=== PATIENT | male | born 1950 | race Caucasian/White ===

== ENCOUNTER 2023-11-16 13:50 | Outpatient (OUT) | payer MEDICARE, SELFPAY ==
[2023-11-16 14:26] LABS: Basophils Absolute Auto 0.2 10^3/uL (0.0-0.1); Basophils Percent Auto 2.2 % (0.2-2.0); Eosinophils Absolute Auto 0.3 10^3/uL (0.0-0.7); Eosinophils Percent Auto 3.6 % (0.9-7.0); Hematocrit 44.6 % (42.0-54.0); Hemoglobin 14.6 g/dL (14.0-18.0); Immature Granulocytes Abs Auto 0.01 10^3/uL (0.00-0.03); Immature Granulocytes Pct Auto 0.1 % (0.0-0.5); Lymphocytes Absolute Auto 1.6 10^3/uL (1.2-3.8); Lymphocytes Percent Auto 22.6 % (20.5-60.0); Mean Corpuscular HGB Conc 32.7 g/dL (29.9-35.2); Mean Corpuscular Hemoglobin 31.6 pg (25.9-34.0); Mean Corpuscular Volume 96.5 fL (80.0-94.0); Mean Platelet Volume 11.3 fL (9.5-13.5); Monocytes Absolute Auto 0.7 10^3/uL (0.3-0.8); Monocytes Percent Auto 9.5 % (1.7-12.0); Neutrophils Absolute Auto 4.5 10^3/uL (1.4-6.5); Platelet Count 213 10^3/uL (150-450); Red Blood Count 4.62 10^6/uL (4.70-6.10); Red Cell Distribution Width 13.7 % (11.0-15.0); White Blood Count 7.3 10^3/uL (4.0-11.0)
[2023-11-16 14:28] LABS: Estimated Average Glucose 114 mg/dL; Glycohemoglobin A1C 5.6 % (4.5-6.2)
[2023-11-16 15:11] LABS: Alanine Aminotransferase 56 U/L (16-63); Albumin Level 3.9 g/dL (3.4-5.0); Alkaline Phosphatase 72 U/L (46-116); Anion Gap 11.3; Aspartate Amino Transferase 36 U/L (15-37); BUN Creatinine Ratio 13.6; Bilirubin Total 1.1 mg/dL (0.2-1.0); Calcium 9.6 mg/dL (8.5-10.1); Carbon Dioxide 30.6 mmol/L (21.0-32.0); Chloride 104 mmol/L (98-107); Chol HDL Ratio 2.5; Cholesterol 117 mg/dL (<=200); Estimated GFR (African America >60 (>=60); Estimated GFR (Non-African Ame 53 (>=60); Globulin 3.9 g/dL; Glucose 83 mg/dL (74-106); HDL Cholesterol 47 mg/dL (40-60); LDL Cholesterol Calculated 58.6 mg/dL; Potassium 4.9 mmol/L (3.5-5.1); Sodium 141 mmol/L (136-145); Total Protein 7.8 g/dL (6.4-8.2); Triglycerides 57 mg/dL (<=150); VLDL CHOLESTEROL 11.4 mg/dL
[2023-11-16 15:24] LABS: Prostate Specific Antigen Scrn 0.73 ng/mL (<=4.00)
== END 2023-11-16 13:51 | disposition home or self-care (01) ==
LOC: LAB 13:53
PROVIDERS: PCP Family Medicine; Visit Provider Family Medicine
DX: E78.5 Hyperlipidemia, unspecified (principal); I25.10 Atherosclerotic heart disease of native coronary artery without angina pectoris; R73.09 Other abnormal glucose; Z12.5 Encounter for screening for malignant neoplasm of prostate
CPT/HCPCS: 36415; 80053; 80061; 83036; 85025; G0103

== ENCOUNTER 2024-01-22 12:11 | Outpatient (OUT) | payer MEDICARE, SELFPAY ==
--- OUTSIDE RECORDS SUMMARY | 2024-01-22 12:15 | XMS_ITS | CCD ---
Author Name Unknown Address [id number] [place] [address] Organization [facility] Care Team Providers [place] [employer] Name Role Phone Destiny Gardner Unavailable Unavailable Unavailable MD Destiny Gardner Primary Care Provider MD Cory Johnson Attending Provider MD Destiny Gardner Primary Care Provider MD Cory Johnson Attending Provider DR DESTINY GARDNER Consulting Unavailable KENDRA, DR DESTINY Garcia Attending Unavailable DR DESTINY GARDNER Admitting Unavailable KENDRA, DR DESTINY Garcia Primary Care Unavailable MD Destiny Gardner Primary Care Provider MD Cory Johnson Attending Provider DO Abhijit Loepz Emergency Provider [phone] DO Eber Kuhn Admit Provider DO Eber Kuhn Attending Provider DO Jhony Almonte Attending Provider SIS Luu Other Provider Unavailable DO Jimmy Esparza Other Provider MD Lashay Chen Other Provider [phone] MD Cory Johnson Other Provider [phone] MD Jenna Boone Other Provider [phone] MD Anshu Lee Other Provider JENNI Holliday Other Provider MD Luz Marina Pfeiffer Other Provider MD Vladimir Steen Other Provider MD Erin Schneider Other Provider Juana [facility] Yamila Joy Other Provider [phone] MD Joleen Syed Other Provider [phone] MD Destiny Gardner Primary Care Provider MD Luz Marina Pfeiffer Other Provider MD Cory Johnson Attending Provider Unavailable Unavailable MD Destiny Gardner Primary Care Provider MD Cory Johnson Attending Provider MD Destiny Gardner Primary Care Provider MD Cory Johnson Attending Provider Kendra, Dr. Destiny Lane Primary Care Unav ailable Kendra, Dr. Destiny Lane Primary Care Unav ailbello Gardner, Dr. Destiny Lane Primary Care Unav ailable Kendra, Dr. Destiny Lane Primary Care Unav ailable Kendra, Dr. Destiny Lane Primary Care Unav ailable Kendra, Dr. Destiny Lane Primary Care Unav ailable Calebuinn II, Dr. Cory Lacey Attending Unavailable McGuinn II, Dr. Cory Lacey Referring Unavailable McGuinn II, Dr. Cory Lacey Attending Unavailable McGuinn II, Dr. Cory Lacey Referring Unavailable Kendra, Dr. Destiny Lane Primary Care UnaDestiny Jon MD Primary Care Provider CORY JOHNSON Attending Unavailable KENDRA, DESTINY LANE Primary Care Unavaila ble Destiny Gardner Unavailable MD Destiny Gardner Primary Care Provider MD Cory Johnson Attending Provider Cory Johnson Attending Unavail able McGuinn, Cory Abhijit Admitting Unavail able Destiny Gardner Primary Care Unavailable Cory Johnson Attending Unavail able Cory Johnson Admitting Unavail able Destiny Gardner Primary Care Unavailable Cory Johnson Attending Unavail able Cory Johnson Admitting Unavail able Destiny Gardner Primary Care Unavailable Cory Johnson Attending Unavail able Destiny Gardner Primary Care Unavailable Cory Johnson Admitting Unavail able SUHAIL NARANJO Attending Unavailable SUHAIL NARANJO Referring Unavailable SUHAIL NARANJO Referring Unavailable Medications Current Medications Medication Drug Class(es) Dates Sig (Normalized) Sig (Original) ascorbic acid 500 mg oral capsule (15 sources) Vitamin C Vitamin C 500 MG Orally Active Aspir-81 81 MG (2 sources) take 1 tablet by mouth once daily Aspir-81 81 MG 1 tablet Orally Once a day Active aspirin 81 mg delayed release oral tablet (13 sources) Platelet Aggregation Inhibitor, Nonsteroidal Anti-inflammatory Drug take 1 tablet by mouth once daily aspirin 81 mg EC tablet Take 1 tablet (81 mg) by mouth once daily. 0 Active aspirin 500 mg / caffeine 32.5 mg oral tablet (5 sources) Platelet Aggregation Inhibitor, Nonsteroidal Anti-inflammatory Drug, Central Nervous System Stimulant, Methylxanthine Start: 11-17-2022 take 1 tablet by mouth every six hours Aspirin-Caffeine (Tiffany [employer]) 500-32.5 mg Tablet Active 500 TAB PO Q6H November 17, 2022 12:00am cholecalciferol 0.025 mg oral tablet (13 sources) Vitamin D take 1 tablet by mouth once daily cholecalciferol (Vitamin D-3) 25 MCG (1000 UT) tablet Take 1 tablet (25 mcg) by mouth once daily. 0 Active citalopram 20 mg oral tablet (20 sources) Serotonin Reuptake Inhibitor Start: 11-17-2022 take 20 mg by mouth once daily Citalopram Active 20 MG PO Daily November 17, 2022 12:00am digoxin 0.125 mg oral tablet (18 sources) Cardiac Glycoside Start: 11-17-2022 take 0.125 mg by mouth once daily Digoxin Active 0.125 MG PO Daily November 17, 2022 12:00am Start: 07-26-2022 End: 10-05-2024 take 1 tablet by mouth once daily digoxin (Lanoxin) 125 MCG tablet Indications: Essential hypertension Take 1 tablet (125 mcg) by mouth once daily. 90 tablet 3 10/06/2023 10/05/2024 Active docosahexaenoic acid 120 mg / eicosapentaenoic acid 180 mg oral capsule (13 sources) take [address] [facility] once daily fish oil concentrate ([place]-3) 120-180 mg capsule Take 1 capsule (1 g) by mouth once daily. 0 Active take 1 capsule by mouth once jorgito ly Fish Oil 1000 MG Oral Capsule TAKE 1 CAPSULE Daily Quantity: 0 Refills: 0 Ordered: 05-Nov-2021 DO Active donepezil hydrochloride 10 mg oral tablet (15 sources) take 1 tablet by mouth once daily Donepezil HCl 10 MG TAKE 1 TABLET BY MOUTH DAILY for 90 Active finasteride 5 mg oral tablet (20 sources) 5-alpha Reductase Inhibitor Start: 2 take 2.5 mg by mouth three times weekly Finasteride Active 2.5 MG PO 3 Times a week November 17, 2022 12:00am take 1 tablet by [facility] every twenty-four hours Finasteride 5 MG 1 tablet Orally Once a day Active take 0.[address] [facility] three times weekly finasteride (Proscar) 5 mg tablet Take 0.5 tablets (2.5 mg) by mouth 3 times a week. 0 Active Fish Oils (2 sources) take 1 capsule by mouth once daily Fish Oil 1000 MG 1 capsule Orally Once a day Active Glucosamine Chondr Complex 500-400 MG (2 sources) take 1 capsule by mouth once daily Glucosamine Chondr Complex 500-400 MG 1 capsule with a meal Orally Once a day Active glucosamine/chondr zambrano A sod (OSTEO BI-FLEX ORAL) (1 source) take 1 capsule by mouth once daily glucosamine/chondr zambrano A sod (OSTEO BI-FLEX ORAL) Take 1 capsule by mouth once daily. 0 Active hydroCHLOROthiazide 25 mg oral tablet (19 sources) Thiazide Diuretic Start: 2021 End: 2022 take 25 mg by mouth once daily Hydrochlorothiazide Active 25 MG PO Daily November 17, 2022 12:00am ibuprofen 600 mg oral tablet (5 sources) Nonsteroidal Anti-inflammatory Drug Start: 2021 take 600 mg by mouth four times daily Ibuprofen Active 600 MG PO Four times daily 20 5 November 17, 2022 12:00am further refills per pcp lisinopril 10 mg oral tablet (20 sources) Angiotensin Converting Enzyme Inhibitor Start: 2020 End: 2022 take 10 mg by mouth once daily Lisinopril Active 10 MG PO Daily November 17, 2022 12:00am Magnesium (2 sources) take 1 capsule by mouth once daily Magnesium 300 MG 1 capsule with a meal Orally Once a day Active magnesium oxide 400 mg oral tablet (13 sources) take 1 tablet by mouth once daily magnesium oxide (Mag-Ox) 400 mg (241.3 mg magnesium) tablet Take 1 tablet (400 mg) by mouth once daily. 0 Active metoprolol tartrate 50 mg oral tablet (20 sources) beta-Adrenergic Dusty Start: 2020 End: 2023 take 50 mg by mouth once daily Metoprolol Tartrate Active 50 MG PO Daily November 17, 2022 12:00am take 1 tablet by jossy th every twelve hours Metoprolol Tartrate 50 MG 1 tablet with food Orally Twice a day Active multivitamin with minerals (hmodmootwzqc-xhzw-edpef acid) tablet (1 source) take 1 tablet by mouth once daily multivitamin with minerals (timtgqzycnpm-lyrw-goepc acid) tablet Take 1 tablet by mouth once daily. 0 Active nitroglycerin 0.4 mg sublingual powder (15 sources) Nitrate Vasodilator Star t: 06-21 Nitroglycerin 0.4MG Nitroglycerin( 0.4MG Sublingual ) Active -Hx Entry Sublingual for 0 Jun, Active nitroglycerin (N itrostat) 0.[address] 1 tablet (0.4 mg) under the tongue every 5 minutes if needed for chest pain. 0 Active Ozempic (2 sources) Ozempic Active ozempic (0.25 or 0.5 mg/dose) 2 mg/3ml solution pen-injector (2 sources) Start: 11-16-2023 inject 0.5 mg by subcutaneous injection every week Ozempic (0.25 or 0.5 MG/DOSE) 2 MG/3ML 0.5mg Subcutaneous weekly for 30 days Oct, Active Psyllium (6 sources) Start: 11-17-2022 Psyllium Active 1 PACKET PO Daily November 17, 2022 1:00am Start: 11-17-2022 Psyllium Activ e 1 PACKET PO Daily November 17, 2022 12:00am take 1 dose by mouth once daily psyllium (Metamucil) 3.4 gram packet Take 1 packet by mouth once daily. 0 Active simvastatin 40 mg oral tablet (20 sources) HMG-CoA Reductase Inhibitor Start: 11-16-2021 End: 10-05-2024 take 40 mg by mouth once daily Simvastatin Active 40 MG PO Daily November 17, 2022 12:00am vitamin b12 0.1 mg oral lozenge (15 sources) Vitamin B12 Vitamin B 12 100 MCG Orally Active take 1 tablet by mouth once maddie y cyanocobalamin, vitamin B-12, (Vitamin B-12) 1,000 mcg tablet extended release Take 1 tablet (1,000 mcg) by mouth once daily. 0 Active Vitamin D-3 1000 UNIT (2 sources) take 1 capsule by mo ut once daily Vitamin D-3 1000 UNIT 1 capsule Orally Once a day Active Completed/Discontinued Medications Medication Drug Class(es) Dates Sig (Normalized) Sig (Original) amLODIPine 5 mg oral tablet (2 sources) Dihydropyridine Calcium Channel Dusty take 1 tablet by mouth every twenty-four hours amLODIPine Besylate 5 MG 1 tablet Orally Once a day Not-Taking/PRN clopidogrel 75 mg oral tablet (2 sources) P2Y12 Platelet Inhibitor take 1 tablet by mouth every twenty-four hours Clopidogrel Bisulfate 75 MG 1 tablet Orally Once a day Not-Taking/PRN docusate sodium 100 mg oral capsule (12 sources) take 1 capsule by mouth twice daily as needed Stool Softener 100 MG Oral Capsule TAKE 1 CAPSULE TWICE DAILY NEEDED. Quantity: 0 Refills: 0 Ordered: 05-Nov-2021 DO Active gabapentin 100 mg oral capsule (2 sources) Anti-epileptic Agent Gabapentin 100 MG Orally Not-Taking/PRN Iron (2 sources) iron 1 tab Oral Not-Taking/PRN losartan potassium 100 mg oral tablet (2 sources) Angiotensin 2 Receptor Dusty take 1 tablet by mouth every twenty-four hours Losartan Potassium 100 MG 1 tablet Orally Once a day Not-Taking/PRN Multi Vitamin Oral Tablet (12 sources) take 1 tablet by mouth once daily Multi Vitamin Oral Tablet TAKE 1 TABLET DAILY. Quantity: 0 Refills: 0 Ordered: 05-Nov-2021 DO Active Problems Active Problems Problem Classification Problem Date Documented Da te Episodic/Chronic Cardiac arrest and ventricular fibrillation (17 sources) Ventricular fibrillation; Translations: [Ventricular fibrillation] Onset: 3 10-06-2023 Chronic Chronic obstructive pulmonary disease and bronchiectasis (2 sources) Bronchitis; Translations: [Bronchitis, not specified as acute or chronic] Episodic Conduction disorders (20 sources) Automatic implantable cardiac defibrillator in situ; Translations: [Automatic implantable cardiac defibrillator in situ] Onset: 3 11-17-2022 Chronic Coronary atherosclerosis and other heart disease (20 sources) Coronary arteriosclerosis; Translations: [Coronary atherosclerosis of unspecified type of vessel, [place] or graft] Onset: 3 10-06-2023 Chronic Deficiency and other anemia (2 sources) Iron deficiency anemia; Translations: [Iron deficiency anemia, unspecified] Episodic Diabetes mellitus without complication (1 source) Other abnormal glucose Episodic Disorders of lipid metabolism (20 sources) Hyperlipidemia; Translations: [Other and unspecified hyperlipidemia] Onset: 3 Chronic Esophageal disorders (2 sources) Gastroesophageal reflux disease; Translations: [Gastro-esophageal reflux disease without esophagitis] Chronic Essential hypertension (20 sources) Essential hypertension; Translations: [Unspecified essential hypertension] Onset: 2 11-17-2022 Chronic Gastrointestinal hemorrhage (2 sources) Hematochezia; Translations: [Melena] Episodic Immunizations and screening for infectious disease (2 sources) Vaccination given; Translations: [Encounter for immunization] Episodic Nonspecific chest pain (13 sources) Chest pain; Translations: [Chest pain, unspecified] 11-17-2022 Episodic Nutritional deficiencies (3 sources) Vitamin D deficiency, unspecified; Translations: [Vitamin D deficiency] Onset: 2 Chronic Occlusion or stenosis of precerebral arteries (14 sources) Carotid artery stenosis; Translations: [Occlusion and stenosis of carotid artery without mention of cerebral infarction] Onset: 3 09-18-2023 Chronic Other circulatory disease (15 sources) Patient post angioplasty; Translations: [Other postprocedural status] Onset: 3 10-06-2023 Episodic Other circulatory disease (4 sources) History of cardiac arrest; Translations: [Personal history of sudden cardiac arrest] 11-17-2022 Episodic Other circulatory disease (2 sources) Peripheral vascular angioplasty status; Translations: [Peripheral vascular angioplasty status] Onset: 3 Episodic Other circulatory disease (2 sources) Orthostatic hypotension; Translations: [Orthostatic hypotension] Episodic Other injuries and conditions due to external causes (2 sources) History of fall; Translations: [History of falling] Episodic Other lower respiratory disease (14 sources) Dyspnea; Translations: [Other respiratory abnormalities] Onset: 3 09-18-2023 Episodic Other male genital disorders (2 sources) Impotence of organic origin; Translations: [Impotence of organic origin] Onset: 6 Chronic Other nutritional; endocrine; and metabolic disorders (3 sources) Obese class I; Translations: [Obesity, unspecified] Chronic Other nutritional; endocrine; and metabolic disorders (3 sources) Body mass index 30+ - obesity; Translations: [Body Mass Index 32.0-32.9, adult] Chronic Other nutritional; endocrine; and metabolic disorders (12 sources) Obesity; Translations: [Obesity, unspecified] Chronic Other nutritional; endocrine; and metabolic disorders (2 sources) Obesity caused by energy imbalance; Translations: [Other obesity due to excess calories] Chronic Other nutritional; endocrine; and metabolic disorders (1 source) Other obesity due to excess calories Chronic Other nutritional; endocrine; and metabolic disorders (1 source) Body mass index (BMI) 33.0-33.9, adult Chronic Other screening for suspected conditions (not mental disorders or infectious disease) (2 sources) Encounter for screening for malignant neoplasm of prostate; Translations: [ENC SCREEN MALIG NEOPLASM PROSTATE] Onset: 2 Episodic Other skin disorders (2 sources) Alopecia; Translations: [Nonscarring hair loss, unspecified] Episodic Other upper respiratory infections (2 sources) Chronic sinusitis; Translations: [Chronic sinusitis, unspecified] Chronic Otitis media and related conditions (2 sources) Dysfunction of bilateral eustachian tubes; Translations: [Other specified disorders of Eustachian tube, bilateral] Episodic Screening and history of mental health and substance abuse codes (12 sources) Ex-smoker; Translations: [Personal history of tobacco use] Episodic Spondylosis; intervertebral disc disorders; other back problems (2 sources) Degeneration of intervertebral disc; Translations: [Degeneration of intervertebral disc, site unspecified] Onset: 3 Chronic Unclassified (1 source) Encounter for adjustment and management of automatic implantable cardiac defibrillator; Translations: [Encounter for adjustment and management of automatic implantable cardiac defibrillator] Onset: 3 Past or Other Problems Problem Classification Problem Date Documented Date Episodic/Chronic Abdominal pain (4 sources) Right upper quadrant pain; Translations: [Right upper quadrant pain] Onset: 07-18-2016 Episodic Biliary tract disease (2 sources) Cholelithiasis without obstruction; Translations: [Calculus of gallbladder without cholecystitis without obstruction] Onset: 02-24-2016 Episodic Conditions associated with dizziness or vertigo (4 sources) Benign paroxysmal positional vertigo; Translations: [Benign paroxysmal vertigo, unspecified ear] Onset: 08-10-2015 Episodic Other skin disorders (2 sources) Generalized hyperhidrosis; Translations: [Generalized hyperhidrosis] Onset: 2015 Episodic Other upper respiratory infections (2 sources) Acute sinusitis; Translations: [Acute sinusitis, unspecified] Onset: 11-28-2013 Episodic Residual codes; unclassified (2 sources) Edema; Translations: [Edema] Onset: 09-02-2014 Episodic Residual codes; unclassified (2 sources) Requires influenza virus vaccination; Translations: [Need for prophylactic vaccination and inoculation, Influenza] Onset: 09-26-2017 Episodic Unclassified (1 source) Onset: 10-06-2023 10-06-2023 Results Test Name Value Interpretation Reference Range Facility Office Visit (Cardiology)on 01-13-2023 Follow-up visit Diagnoses/Problems Assessed Ventricular fibrillation (427.41) (I49.01) Carotid artery stenosis (433.10) (I65.29) Arteriosclerosis of coronary artery (414.00) (I25.10) ICD (implantable cardioverter-defibrillator ), single, in situ (V45.02) (Z95.810) Status post angioplasty (V45.89) (Z98.62) Essential hypertension (401.9) (I10) Hyperlipidemia (272.4) (E78.5) Class 1 obesity with body mass index (BMI) of 33.0 to 33.9 in adult (278.00,V85.33) (E66.9,Z68.33) Orders Essential hypertension Renew: hydroCHLOROthiazide 25 MG Oral Tablet; take 1 tablet by mouth once daily Ventricular fibrillation Renew: Digoxin 125 MCG Oral Tablet; TAKE 1 TABLET Daily Patient Instructions Please bring all medicines, vitamins, and herbal supplements with you when you come to the office. Prescriptions will not be filled unless you are compliant with your follow up appointments or have a follow up appointment scheduled as per instruction of your physician. Refills should be requested at the time of your visit Fall prevention education given. Follow up in 9 months Pacemaker/Defibrillator follow-up per routine The provider reviewed the following test(s) and result(s) with the patient: echocardiogram and laboratory tests Chief Complaint ECHO RESULTS. History of Present Illness Patient returns in follow-up of previous complaints of shortness of breath. At the last encounter plan was an outpatient echocardiogram but about a week after the office visit he went to the hospital and was admitted. His evaluation demonstrated no EKG changes, normal troponins, normal B natruretic peptide and a normal echocardiogram. This was reviewed with him and I told him that I seriously doubt any active heart disease. He had no manifestations of ischemia nor heart failure and I believe his previous complaints of shortness of breath are probably on the basis of COPD and/or age-related deconditioning. This was discussed and explained in great detail and he is excepting of the conclusions and agrees. The present time it appears no adjustments in therapy are necessary. Once again we reviewed with him the symptoms that preceded his original diagnosis of coronary disease and carotid disease and he is having none of those symptoms and consequently we believe he is doing well. Defibrillator checks are reviewed with him and the device function is adequate and appropriate and there have been no breakthroughs of malignant ventricular tachyarrhythmias. His blood pressure and cholesterol are well controlled and these medicines do not require adjustment. As before, though, we did advocate the merits of diet exercise and weight loss. Current Meds Medication NameInstruction Aspirin EC 81 MG Oral Tablet Delayed ReleaseTAKE 1 TABLET DAILY. Citalopram Hydrobromide 20 MG Oral TabletTAKE 1 TABLET DAILY. Digoxin 125 MCG Oral TabletTAKE 1 TABLET Daily Donepezil HCl - 10 MG Oral TabletTAKE 1 TABLET DAILY. Finasteride 5 MG Oral TabletTAKE 1/2 TABLET 3 TIMES WEEKLY Fish Oil 1000 MG Oral CapsuleTAKE 1 CAPSULE Daily hydroCHLOROthiazide 25 MG Oral Tablettake 1 tablet by mouth once daily Lisinopril 10 MG Oral TabletTake 1 tablet daily Magnesium Oxide 400 MG Oral TabletTAKE 1 TABLET DAILY. Metoprolol Tartrate 50 MG Oral TabletTake 1 tablet daily Multi Vitamin Oral TabletTAKE 1 TABLET DAILY. Nitroglycerin 0.4 MG Sublingual Tablet SublingualPLACE 1 TABLET UNDER THE TONGUE EVERY 5 MINUTES FOR UP TO 3 DOSES NEEDED FOR CHEST PAIN.CALL 911 IF PAIN PERSISTS. Simvastatin 40 MG Oral TabletTAKE 1 TABLET AT BEDTIME Stool Softener 100 MG Oral CapsuleTAKE 1 CAPSULE TWICE DAILY NEEDED. Vitamin B12 1000 MCG Oral Tablet Extended ReleaseTAKE 1 TABLET DAILY DIRECTED. Vitamin C 500 MG Oral CapsuleTAKE 1 CAPSULE Daily Vitamin D3 25 MCG (1000 UT) Oral TabletTAKE 1 TABLET DAILY. Allergies Medication No Known Drug Allergies Recorded By: Shayla Palomo; 10/20/2021 11:46:25 AM Social History Problems Alcohol use (V49.89) (Z78.9) Occasionally Caffeine use (V49.89) (Z78.9) 2-3 cups of coffee daily Former smoker (V15.82) (Z87.891) No illicit drug use Review of Systems Constitutional: not feeling tired. Eyes: no eyesight problems. ENT: no hearing loss and no nosebleeds. Cardiovascular: no intermittent leg claudication and as noted in HPI. Respiratory: no chronic cough and no shortness of breath. Gastrointestinal: no change in bowel habits and no blood in stools. Genitourinary: no urinary frequency and no hematuria. Skin: no skin rashes. Neurological: no seizures and no frequent falls. Psychiatric: no depression and not suicidal. All other systems have been reviewed and are negative for complaint. Vitals Vital Signs Recorded: [id number] 03:53PM Heart Rate64, R Radial Bpugcfed82, LUE, Sitting Pdxzeojxr93, LUE, Sitting Height6 ft 1 in Kmplch812 lb BMI Tyknobuexz06.38 kg/m2 BSA Calculated2.38 Tobacco Useb) No PHQ-2 #1. Over the last 2 weeks french (more content not included)... Normal FastCall Tobacco Screening.on 023 Adult depression screening assessment No [employer] 250 DO Work Phone: Fall risk assessment b) One or more fall s in the last year [facility] [employer] 250 DO Work Phone: Tobacco use status [facility] b) [facility] [employer] 250 DO Work Phone: Activated partial thrombopla stin time (aPTT) in platelet poor plasma by coagulation aOrdered By: Abhijit Lopez on 11-17-2022 aPTT Coag (PPP) [Time] 32.4 s 25.1-36.5 [facility] Basophils Auto (Bld) [#/Vol] Ordered By: Abhijit Lopez on 11-17-2022 Basophils (Bld) [#/Vol] 0.0 10*3/uL 0.0-0.2 [facility] Basophils/100 WBC Auto (Bld) Ordered By: Abhijit Lopez on 11-17-2022 Basophils/100 WBC (Bld) 0.3 % . [facility] Creatine kinase [Enzymatic a ctivity/volume] in Serum or PlasmaOrdered By: Eber Kuhn on 11-17-2022 CK [Catalytic activity/Vol] 69 U/L [facility] Creatine kinase [Enzymatic a ctivity/volume] in Serum or PlasmaOrdered By: Abhijit Lopez on 11-17-2022 CK [Catalytic activity/Vol] 75 U/L [facility] Creatinine and Glomerular fi ltration rate.predicted panel (S/P/Bld)Ordered By: Abhijit Lopez on 11-17-2022 Creatinine [Mass/Vol] 1.33 mg/dL 0.64-1.27 [facility] Eosinophils Auto (Bld) [#/Vo l]Ordered By: Abhijit Lopez on 11-17-2022 Eosinophils (Bld) [#/Vol] 0.5 10*3/uL 0.0-0.45 [facility] Eosinophils/100 WBC Auto (Bl d)Ordered By: Abhijit Lopez on 11-17-2022 Eosinophils/100 WBC (Bld) 3.2 % . [facility] Erythrocyte distribution wid th Auto (RBC) [Ratio]Ordered By: Abhijit Lopez on 11-17-2022 Erythrocyte distribution width (RBC) [Ratio] 14.5 % 12.0-14.8 [facility] Estimated glomerular filtrat ion rate (GFR) non- AmericanOrdered By: Abhijit Lopez on 11-17-2022 GFR/1.73 sq M.predicted among non-blacks MDRD (S/P/Bld) [Vol rate/Area] 53 mL/Min [facility] Hematocrit Auto (Bld) [Volum e fraction]Ordered By: Abhijit Lopez on 11-17-2022 Hematocrit (Bld) [Volume fraction] 44.2 % 38.8-50.0 [facility] Hemoglobin [Mass/volume] in BloodOrdered By: Abhijit Lopez on 11-17-2022 Hemoglobin (Bld) [Mass/Vol] 15.0 g/dL 13.0-17.0 [facility] Laboratory - Chemistry and C hemistry - challengeOrdered By: Abhijit Lopez on 11-17-2022 Natriuretic peptide B (Bld) [Mass/Vol] 99.0 pg/mL 5-100 [facility] Laboratory - CoagulationOrde red By: Abhijit Lopez on 11-17-2022 PT Coag (PPP) [Time] 11.0 s 9.0-12.9 [facility] Leukocytes [#/volume] correc la nena for nucleated erythrocytes in Blood by Automated counOrdered By: Abhijit Lopez on 11-17-2022 WBC corrected for nucl RBC Auto (Bld) [#/Vol] 14.5 10*3/uL 4.1-10.5 [facility] Lymphocytes Auto (Bld) [#/Vo l]Ordered By: Abhijit Lopez on 11-17-2022 Lymphocytes (Bld) [#/Vol] 2.1 10*3/uL 1.00-4.8 [facility] Lymphocytes/100 WBC Auto (Bl d)Ordered By: Abhijit Lopez on 11-17-2022 Lymphocytes/100 WBC (Bld) 14.2 % . [facility] MCH Auto (RBC) [Entitic mass ]Ordered By: Abhijit Lopez on 11-17-2022 MCH (RBC) [Entitic mass] 31.7 pg 27.5-35.2 [facility] MCHC Auto (RBC) [Mass/Vol]Or dered By: Abhijit Lopez on 11-17-2022 MCHC (RBC) [Mass/Vol] 34.0 g/dL 32.5-35.6 [facility] MCV Auto (RBC) [Entitic vol] Ordered By: Abhijit Lopez on 11-17-2022 MCV (RBC) [Entitic vol] 93.4 fL 83.5-101 [facility] Monocyte distribution width [Entitic volume] in Blood by AutomatedOrdered By: Abhijit Lopez on 11-17-2022 Monocyte distribution width Auto (Bld) [Entitic vol] 17.83 % 0.00-20.00 [facility] Monocytes Auto (Bld) [#/Vol] Ordered By: Abhijit Lopez on 11-17-2022 Monocytes (Bld) [#/Vol] 1.4 10*3/uL 0.0-0.8 [facility] Monocytes/100 WBC Auto (Bld) Ordered By: Abhijit Lopez on 11-17-2022 Monocytes/100 WBC (Bld) 9.4 % . [facility] Neutrophils Auto (Bld) [#/Vo l]Ordered By: Abhijit Lopez on 11-17-2022 Neutrophils (Bld) [#/Vol] 10.6 10*3/uL 1.8-7.7 [facility] Neutrophils/100 WBC Auto (Bl d)Ordered By: Abhijit Lopez on 11-17-2022 Neutrophils/100 WBC (Bld) 72.9 % . [facility] No Panel InformationOrdered By: Abhijit Lopez on 11-17-2022 Estimated GFR () > 60 mL/Min [facility] Comment on above: GFR estimated refere nce range: According to KDOQI guidelines, <60 ml/min/1.73m2 is sufficient to diagnose a patient with chronic kidney disease. Pharmacy Creatinine Clearance (Chem 64.40 [facility] Nucleated erythrocytes [Pres ence] in Blood by Automated countOrdered By: Abhijit Lopez on 11-17-2022 Nucleated RBC Auto Ql (Bld) 0.3 /100{WBC} 0-0.5 [facility] Platelet mean volume Auto (B ld) [Entitic vol]Ordered By: Abhijit Lopez on 11-17-2022 Platelet mean volume (Bld) [Entitic vol] 9.0 fL 6.6-10.1 [facility] Platelet poor plasma interna tional normalized ratio (INR) by coagulation assay (relatOrdered By: Abhijit Lopez on 11-17-2022 INR Coag (PPP) [Relative time] 1.0 {INR} [facility] Comment on above: INR Therapeutic Rang e A) Pre- and Peroperative OAT started two weeks before surgery. NOT HIP SURGERY: 1.5 - 2.5 HIP SURGERY: 2 - 3B) Primary and secondary prevention of venous THROMBOSIS: 2 - 3C) Active venous thrombosis, pulmonary embolismand prevention of recurrent venous thrombosis: 2 - 3D) Prevention of arterial thromboembolismincluding patients with mechanical heart valves: 3 - 4.5 Platelets Auto (Bld) [#/Vol] Ordered By: Abhijit Lopez on 11-17-2022 Platelets (Bld) [#/Vol] 241 10*3/uL 150-450 [facility] RBC Auto (Bld) [#/Vol]Ordere d By: Abhijit Lopez on 11-17-2022 RBC (Bld) [#/Vol] 4.73 10*6/uL 3.90-5.60 [facility] Serum or plasma anion gap de terminationOrdered By: Abhijit Lopez on 11-17-2022 Anion gap [Moles/Vol] 13.1 mmol/L 6.0-15.0 [facility] Serum or plasma calcium obdulia urement (mass/volume)Ordered By: Abhijit Lopez on 11-17-2022 Calcium [Mass/Vol] 9.2 mg/dL 8.2-10.2 [facility] Serum or plasma chloride anuradha surement (moles/volume)Ordered By: Abhijit Lopez on 11-17-2022 Chloride [Moles/Vol] 100 mmol/L 95-114 [facility] Serum or plasma creatine kin ase MB (CKMB)/total creatine kinase (CK) ratio by calculaOrdered By: Eber Kuhn on 11-17-2022 CK.MB Calc [Catalytic fraction] 3.0 % 0.00-2.50 [facility] Serum or plasma creatine kin ase MB (CKMB)/total creatine kinase (CK) ratio by calculaOrdered By: Abhijit Lopez on 11-17-2022 CK.MB Calc [Catalytic fraction] 2.9 % 0.00-2.50 [facility] Serum or plasma creatine kin ase MB measurement (mass/volume)Ordered By: Eber Kuhn on 11-17-2022 CK.MB [Mass/Vol] 2.1 ng/mL 0.6-6.3 [facility] Serum or plasma creatine kin ase MB measurement (mass/volume)Ordered By: Abhijit Lopez on 11-17-2022 CK.MB [Mass/Vol] 2.2 ng/mL 0.6-6.3 [facility] Serum or plasma glucose obdulia urement (mass/volume)Ordered By: Abhijit Lopez on 11-17-2022 Glucose [Mass/Vol] 95 mg/dL 70-100 [facility] Comment on above: ADA recommended refe rence rangeRandom Glucose Reference Range is dependent on time and content of last meal. Glucose of more than 200 mg/dL in a nonstressed, ambulatory subject supports the diagnosis of Diabetes Mellitus. Serum or plasma potassium me asurement (moles/volume)Ordered By: Abhijit Lopez on 11-17-2022 Potassium [Moles/Vol] 3.7 mmol/L 3.5-5.1 [facility] Serum or plasma sodium measu rement (moles/volume)Ordered By: Abhijit Lopez on 11-17-2022 Sodium [Moles/Vol] 139 mmol/L 136-146 [facility] Serum or plasma total carbon dioxide measurement (moles/volume)Ordered By: Abhijit Lopez on 11-17-2022 CO2 [Moles/Vol] 29.6 mmol/L 22.0-30.0 [facility] Serum or plasma urea nitroge n measurement (mass/volume)Ordered By: Abhijit Lopez on 11-17-2022 Urea nitrogen [Mass/Vol] 13 mg/dL 9-23 [facility] Troponin I.cardiac [Mass/vol ume] in Serum or Plasma by High sensitivity methodOrdered By: Eber Kuhn on 11-17-2022 Troponin I.cardiac High sensitivity method [Mass/Vol] 14 pg/mL 0-20 [facility] Troponin I.cardiac [Mass/vol ume] in Serum or Plasma by High sensitivity methodOrdered By: Abhijit Lopez on 11-17-2022 Troponin I.cardiac High sensitivity method [Mass/Vol] 17 pg/mL 0-20 [facility] WBC Auto (Bld) [#/Vol]Ordere d By: Abhijit Lopez on 11-17-2022 WBC (Bld) [#/Vol] 14.5 10*3/uL 4.1-10.5 [facility] VIT D 1 25 DIHYDROXYon 11-12 Calcitriol(1,25 di-OH Vit D) 52.5 pg/mL Normal 24.8-81.5 [facility] Comment on above: Performed By: #### V [id number] #### [facility] [address] [place] [address] Dr. Shadia Cardozo CBC AUTO DIFFon 11-10-2022 BASO # 0.2 103/ul Critically high 0.0-0.1 [facility] Comment on above: Performed By: #### C BC #### [facility] [address] [place] [address] Dr. Shadia Cardozo Basophils/100 WBC (Bld) 1.9 % Normal 0.2-2.0 [facility] Comment on above: Performed By: #### C BC #### [facility] [address] [place] [address] Dr. Shadia Cardozo EO # 0.4 103/ul Normal 0.0-0.7 [facility] Comment on above: Performed By: #### C BC #### [facility] [address] [place] [address] Dr. Shadia Cardozo Eosinophils/100 WBC (Bld) 4.3 % Normal 0.9-7.0 [facility] Comment on above: Performed By: #### C BC #### [facility] [address] [place] [address] Dr. Shadia Cardozo Erythrocyte distribution width (RBC) [Ratio] 13.7 % Normal 11.0-15.0 [facility] Comment on above: Performed By: #### C BC #### [facility] [address] [place] [address] Dr. Shadia Cardozo Hematocrit (Bld) [Volume fraction] 44.8 % Normal 42.0-54.0 [facility] Comment on above: Performed By: #### C BC #### [facility] [address] [place] [address] Dr. Shadia Cardozo Hemoglobin (Bld) [Mass/Vol] 15.4 g/dL Normal 14.0-18.0 [facility] Comment on above: Performed By: #### C BC #### [facility] [address] [place] [address] Dr. Shadia Cardozo IG # 0.02 10e3/ul Normal 0.00-0.03 [facility] Comment on above: Performed By: #### C BC #### [facility] [address] [place] [address] Dr. Shadia Cardozo IG % 0.2 % Normal 0.0-0.5 [facility] Comment on above: Performed By: #### C BC #### [facility] [address] [place] [address] Dr. Shadia Cardozo LYMPH # 1.7 103/ul Normal 1.2-3.8 [facility] Comment on above: Performed By: #### C BC #### [facility] [address] [place] [address] Dr. Shadia Cardozo Lymphocytes/100 WBC (Bld) 19.8 % Critically low 20.5-60.0 [facility] Comment on above: Performed By: #### C BC #### [facility] [address] [place] [address] Dr. Shadia Cardozo MANUAL DIFF REQ NO Normal [facility] Comment on above: Performed By: #### C BC #### [facility] [address] [place] [address] Dr. Shadia Cardozo MCH (RBC) [Entitic mass] 31.6 pg Normal 25.9-34.0 [facility] Comment on above: Performed By: #### C BC #### [facility] [address] [place] [address] Dr. Shadia Cardozo MCHC (RBC) [Mass/Vol] 34.4 g/dL Normal 29.9-35.2 [facility] Comment on above: Performed By: #### C BC #### [facility] [address] [address] [address] Shadia Cardozo MCV (RBC) [Entitic vol] 91.8 fL Normal 80.0-94.0 [facility] Comment on above: Performed By: #### C BC #### [facility] [address] [address] [address] Shadia Cardozo MONO # 0.8 103/ul Normal 0.3-0.8 [facility] Comment on above: Performed By: #### C BC #### [facility] [address] [address] [address] Shadia Cardozo Monocytes/100 WBC (Bld) 8.8 % Normal 1.7-12.0 [facility] Comment on above: Performed By: #### C BC #### [facility] [address] [place] [address] Dr. Shadia Cardozo NEUT # 5.6 103/ul Normal 1.4-6.5 [facility] Comment on above: Performed By: #### C BC #### [facility] [address] [place] [address] Dr. Shadia Cardozo Neutrophils/100 WBC (Bld) 65.0 % Normal 43.0-75.0 [facility] Comment on above: Performed By: #### C BC #### [facility] [address] [address] [address] Shadia Cardozo Platelet mean volume (Bld) [Entitic vol] 10.9 fL Normal 9.5-13.5 [facility] Comment on above: Performed By: #### C BC #### [facility] [address] [address] [address] Shadia Cardozo PLT 245 103/ul Normal 150-450 [facility] Comment on above: Performed By: #### C BC #### [facility] [address] [address] [address] Shadai Cardozo RBC 4.88 106/ul Normal 4.70-6.10 [facility] Comment on above: Performed By: #### C BC #### [facility] [address] [address] [address] Shadia Cardozo WBC 8.6 103/ul Normal 4.0-11.0 [facility] Comment on above: Performed By: #### C BC #### [facility] [address] [address] [address] Shadia Cardozo LIPID PROFILEon 11-10-2022 CHOL-HDL RATIO NORM SEE BELOW Normal [facility] Comment on above: Result Comment: 3.3 - 4.4 LOW RISK 4.4 - 7.1 AVERAGE RISK 7.1 - 11.0 MODERATE RISK >11.0 HIGH RISK Performed By: #### L IPID, CMP #### [facility] [address] [place] [address] Dr. Shadia Cardozo Cholesterol [Mass/Vol] 138 mg/dL Normal <=200 [facility] Comment on above: Performed By: #### L IPID, CMP #### [facility] [address] [address] [address] Shadia Cardozo Cholesterol in HDL [Mass/Vol] 42 mg/dL Normal 40-60 [facility] Comment on above: Performed By: #### L IPID, CMP #### [facility] [address] [place] [address] Dr. Shadia Cardozo Cholesterol in LDL [Mass/Vol] 64.8 mg/dL Normal [facility] Comment on above: Performed By: #### L IPID, CMP #### [facility] [address] [address] [address] Shadia Cardozo Cholesterol.total/Chol esterol in HDL [Mass ratio] 3.3 {ratio} Normal [facility] Comment on above: Performed By: #### L IPID, CMP #### [facility] [address] [place] [address] Dr. Shadia Cardozo HDL NORMAL > or = 60 mg/dl - LO W CARDIOVASCULAR RISK <40 mg/dl - HIGH CARDIOVASCULAR RISK Normal [facility] Comment on above: Performed By: #### L IPID, CMP #### [facility] [address] [place] [address] Dr. Shadia Cardozo LDL CALC NORMAL SEE BELOW Normal [facility] Comment on above: Result Comment: <100 mg/dl OPTIMAL 100 - 129 mg/dl NEAR OR ABOVE OPTIMAL 130 - 159 mg/dl BORDERLINE HIGH 160 - 189 mg/dl HIGH >190 mg/dl VERY HIGH Performed By: #### L IPID, CMP #### [facility] [address] [place] [address] Dr. Shadia Cardozo Triglyceride [Mass/Vol] 156 mg/dL Critically high <=150 [facility] Comment on above: Performed By: #### L IPID, CMP #### [facility] [address] [address] [address] Shadia Cardozo VLDL CALC 31.2 mg/dL Normal [facility] Comment on above: Performed By: #### L IPID, CMP #### [facility] [address] [place] [address] Dr. Shadia Cardozo MICROALBUMIN, RAND URon 10-21 mALB 5.0 mg/L Normal <=30.0 [facility] Comment on above: Performed By: #### M ALBR #### [facility] [address] [place] [address] Dr. Shadia Cardozo PROF 14(COMP METB)on 022 Albumin [Mass/Vol] 3.8 g/dL Normal 3.4-5.0 [facility] Comment on above: Performed By: #### L IPID, CMP #### [facility] [address] [place] [address] Dr. Shadia Cardozo Albumin/Globulin [Mass ratio] 0.9 {ratio} Normal [facility] Comment on above: Performed By: #### L IPID, CMP #### [facility] [address] [place] [address] Dr. Shadia Cardozo ALP [Catalytic activity/Vol] 76 U/L Normal 46-116 [facility] Comment on above: Performed By: #### L IPID, CMP #### [facility] [address] [place] [address] Dr. Shadia Cardozo ALT [Catalytic activity/Vol] 54 U/L Normal 16-63 [facility] Comment on above: Performed By: #### L IPID, CMP #### [facility] [address] [place] [address] Dr. Shadia Cardozo Anion gap [Moles/Vol] 12.2 mmol/L Normal [facility] Comment on above: Performed By: #### L IPID, CMP #### [facility] [address] [place] [address] Dr. Shadia Cardozo AST [Catalytic activity/Vol] 41 U/L Critically high 15-37 [facility] Comment on above: Performed By: #### L IPID, CMP #### [facility] [address] [place] [address] Dr. Shadia Cardozo Bilirubin [Mass/Vol] 0.7 mg/dL Normal 0.2-1.0 [facility] Comment on above: Performed By: #### L IPID, CMP #### [facility] [address] [place] [address] Dr. Shadia Cardozo Calcium [Mass/Vol] 9.2 mg/dL Normal 8.5-10.1 [facility] Comment on above: Performed By: #### L IPID, CMP #### [facility] [address] [place] [address] Dr. Shadia Cardozo Chloride [Moles/Vol] 100 mmol/L Normal 98-107 [facility] Comment on above: Performed By: #### L IPID, CMP #### [facility] [address] [place] [address] Dr. Shadia Cardozo CO2 [Moles/Vol] 30.0 mmol/L Normal 21.0-32.0 [facility] Comment on above: Performed By: #### L IPID, CMP #### [facility] [address] [place] [address] Dr. Shadia Cardozo Creatinine [Mass/Vol] 1.27 mg/dL Normal 0.70-1.30 [facility] Comment on above: Performed By: #### L IPID, CMP #### [facility] [address] [place] [address] Dr. Shadia Cardozo EGFR-AF POLISH >60 Normal >=60 [facility] Comment on above: Performed By: #### L IPID, CMP #### [facility] [address] [place] [address] Dr. Shadia Cardozo EGFR-NON AF POLISH 55 mL/min/1.73m2 Critically low >=60 [facility] Comment on above: Performed By: #### L IPID, CMP #### [facility] [address] [address] [address] Shadia Cardozo Globulin (S) [Mass/Vol] 4.0 g/dL Normal [facility] Comment on above: Performed By: #### L IPID, CMP #### [facility] [address] [place] [address] Dr. Shadia Cardozo Glucose [Mass/Vol] 113 mg/dL Critically high 74-106 [facility] Comment on above: Performed By: #### L IPID, CMP #### [facility] [address] [place] [address] Dr. Shadia Cardozo Potassium [Moles/Vol] 4.2 mmol/L Normal 3.5-5.1 [facility] Comment on above: Performed By: #### L IPID, CMP #### [facility] [address] [place] [address] Dr. Shadia Cardozo Protein [Mass/Vol] 7.8 g/dL Normal 6.4-8.2 [facility] Comment on above: Performed By: #### L IPID, CMP #### [facility] [address] [place] [address] Dr. Shadia Cardozo Sodium [Moles/Vol] 138 mmol/L Normal 136-145 [facility] Comment on above: Performed By: #### L IPID, CMP #### [facility] [address] [place] [address] Dr. Shadia Cardozo Urea nitrogen [Mass/Vol] 14.0 mg/dL Normal 7.0-18.0 [facility] Comment on above: Performed By: #### L IPID, CMP #### [facility] [address] [place] [address] Dr. Shadia Cardozo Urea nitrogen/Creatinine [Mass ratio] 11.0 mg/mg Normal [facility] Comment on above: Performed By: #### L IPID, CMP #### [facility] [address] [place], [place] [address] Dr. Shadia Cardozo Office Visit (Cardiology)on 11-04-2022 Follow-up visit Diagnoses/Problems Assessed Arteriosclerosis of coronary artery (414.00) (I25.10) Carotid artery stenosis (433.10) (I65.29) Class 1 obesity with body mass index (BMI) of 32.0 to 32.9 in adult (278.00,V85.32) (E66.9,Z68.32) Essential hypertension (401.9) (I10) Hyperlipidemia (272.4) (E78.5) ICD (implantable cardioverter-defibrillator ), single, in situ (V45.02) (Z95.810) Status post angioplasty (V45.89) (Z98.62) Ventricular fibrillation (427.41) (I49.01) Dyspnea (786.09) (R06.00) Former smoker (V15.82) (Z87.891) Orders Arteriosclerosis of coronary artery Renew: Aspirin EC 81 MG Oral Tablet Delayed Release; TAKE 1 TABLET DAILY Arteriosclerosis of coronary artery, Dyspnea, Ventricular fibrillation Echocardiogram; Status:Hold For - Scheduling; Requested for:[id number]; Class 1 obesity with body mass index (BMI) of 32.0 to 32.9 in adult Healthy Weight Tips; Status:Complete; Done: [id number] Some eating tips that can help you lose weight.; Status:Complete; Done: [id number] SocHx: Former smoker Tobacco Use Screening; Status:Complete; Done: [id number] Patient Instructions Please bring all medicines, vitamins, and herbal supplements with you when you come to the office. Prescriptions will not be filled unless you are compliant with your follow up appointments or have a follow up appointment scheduled as per instruction of your physician. Refills should be requested at the time of your visit. Pacemaker/Defibrillator follow up per routine Follow up after testing completed Chief Complaint SUHALI PADGETT is being seen for an annual follow-up of. History of Present Illness Patient returns in follow-up of problems as noted. In the interim he is done relatively well and he denies any anginal symptomatology associated with his coronary disease. Vascular surgery is been following his carotid disease and we will defer to them. Blood pressure and lipids appear to be adequately controlled and recent defibrillator interrogations are reviewed with him and they demonstrate satisfactory device performance and no arrhythmia breakthrough. He does, though, complained of dyspnea that he states is new and incrementally worse over time. He has no findings of edema or rales nor JVD but nonetheless were concerned regarding a change in ejection fraction because of this an echocardiogram will be performed and he will follow-up thereafter. He was encouraged to call if symptoms arise or worsen in the interim. Surgical History Problems History of Cholecystectomy History of Colonoscopy History of Hernia repair History of Percutaneous transluminal coronary angioplasty Current Meds Medication NameInstruction Aspirin EC 81 MG Oral Tablet Delayed ReleaseTAKE 1 TABLET DAILY. Citalopram Hydrobromide 20 MG Oral TabletTAKE 1 TABLET DAILY. Digoxin 125 MCG Oral TabletTAKE 1 TABLET Daily Donepezil HCl - 10 MG Oral TabletTAKE 1 TABLET DAILY. Finasteride 5 MG Oral TabletTAKE 1/2 TABLET 3 TIMES WEEKLY Fish Oil 1000 MG Oral CapsuleTAKE 1 CAPSULE Daily hydroCHLOROthiazide 25 MG Oral Tablettake 1 tablet by mouth once daily Lisinopril 10 MG Oral TabletTake 1 tablet daily Magnesium Oxide 400 MG Oral TabletTAKE 1 TABLET DAILY. Metoprolol Tartrate 50 MG Oral TabletTake 1 tablet daily Multi Vitamin Oral TabletTAKE 1 TABLET DAILY. Nitroglycerin 0.4 MG Sublingual Tablet SublingualPLACE 1 TABLET UNDER THE TONGUE EVERY 5 MINUTES FOR UP TO 3 DOSES NEEDED FOR CHEST PAIN.CALL 911 IF PAIN PERSISTS. Simvastatin 40 MG Oral TabletTAKE 1 TABLET AT BEDTIME Stool Softener 100 MG Oral CapsuleTAKE 1 CAPSULE TWICE DAILY NEEDED. Vitamin B12 1000 MCG Oral Tablet Extended ReleaseTAKE 1 TABLET DAILY DIRECTED. Vitamin C 500 MG Oral CapsuleTAKE 1 CAPSULE Daily Vitamin D3 25 MCG (1000 UT) Oral TabletTAKE 1 TABLET DAILY. Allergies Medication No Known Drug Allergies Recorded By: Shayla Palomo; 10/20/2021 11:46:25 AM Social History Problems Alcohol use (V49.89) (Z78.9) Occasionally Caffeine use (V49.89) (Z78.9) 2-3 cups of coffee daily Former smoker (V15.82) (Z87.891) No illicit drug use Review of Systems Constitutional: not feeling tired. Cardiovascular: no intermittent leg claudication and as noted in HPI. Respiratory: no cough and no shortness of breath. Gastrointestinal: no change in bowel habits and no blood in stools. Integumentary: no skin rashes. Neurological: no seizures and no frequent falls. All other systems have been reviewed and are negative for complaint. Vitals Vital Signs Recorded: 04Nov2022 01:15PM Heart Rate60, L Radial [id number], LUE, Sitting Aerwpkqfw16, LUE, Sitting Height6 ft 1 in Qnttkm077 lb BMI Uyzdlklhnh68.85 kg/m2 BSA Calculated2.36 Tobacco Useb) No PHQ-2 #1. Over the last 2 weeks have you felt down, depressed or hopeless? (If yes, answer PHQ-9 below)No PHQ-2 #2. Over the last 2 weeks have you felt little interest or pleasure in doing things? (If yes, answer PHQ-9 bel (more content not included)... Normal [employer] PHQ-2 VITALSon 11-04-2022 Adult depression screening assessment No [facility] [employer] 600 DO Work Phone: Fall risk assessment a) No falls within the last year [facility] [employer] 600 DO Work Phone: Tobacco use status [facility] b) No [facility] [employer] 600 DO Work Phone: [phone] Tobacco Screening.on Fall risk assessment b) One or more fall s in the last year [facility] DO Work Phone: Tobacco use status [facility] b) No [facility] [employer] 250 DO Work Phone: Consent Formson 02-15-2021 Consent Forms [id number] C[facility] Summaryon 01-21-2021 Coding Summary [employer] 64 VhtylsybFKd3bGz+PGhlYWQ+PE [id number] WZOEHKEXEH0TGC8apYX3ZTxhY7 VybiAv RkqnnRUsMW34QNh7FXK2iQctAC [id number] TDncQUImIzD2AcVvwlgnrMUy K3xdDcTqaZPlFfi+PHRhYmxlIH rdBUMbPXtjRTXwIfFmySxiTR2x Hj6nOEDhFDAvvLukiOJkAfAo a8ouWCSlDNifNB2txYflU1NlxE W6TOAst4b6Ah86iJC+PHRkIHN0 fRgnFKlbm807KwCmw4boLFZ9 yTCpDOpaDXU7J50uf3O4XXYmNQ YkSWY6hNZ9xV8xiBqskpjrF9Gc sPRtYjB3HGX5tTJzfS5ejVpl rbbdtY3uZwa+A96APQ8EHZRJYR 0UMqj8U9PqEvyrgBW+SL81ETRi CR48iTDgoTQcg7fsoDs1FjNs GLGnFBG9sRkhTXcwo0FoXURsK6 3oqWZhq6T2VYYpfOfhoNQhPpQv dTJ9wL5rYYwtvjpci1eonlck Jmwku8owzz35wT83Z29lEShrDX FcLXA3TTCxDIXzjXfxth9iqN0h Ii8+XTksz2qvr6zaiPw1DcTl JFBqiuGebHyhGGP5e4RdDo87D6 GnjXdfj7HfWpe2kl55nYIns1B2 fBU7WSskWCNvsI4hPCjoCsB6 SXZwMzYppW91oICzDVtiHk4jyD wapHugKQ1nVDCacidzHZCqnZ0v EPYzaIJwnAalJT4iMYTjskgk o673CiMvERN0DALgvOKmF8MwcG 0yYvLhCIXiTYWbH8DmtBUlYErt E871ENzuYeI2UBBoocSeE3Wt ZMEubMvwAsM3l8R9Tx1Rk9Fsee wnOAZ0GMyqKCNsYoA6ZcIkKcH1 J1WaAlb8CUXvhUfkUL4wT9Vq DFAqbzntmcrhkIV9THHfILIkbW 68gQIcQSvqZv9lh4Z3n590KJYm XUDocM82Jl7chUgxTWMjaXLR wL0yhsmfq4mqwryoJlPkQMYwDU a7ZPa6EYSajNnwFnKpUFP8CzS4 ECS9pPOaeW2pdAmurgqroQ7w Oyc+U46svO1xHNE2FEN4rjomKF XajeGeBZ94HK39V2ToFzvswIOd bGU+WTRknyKfjAdlIU3rQaZj c0mpn4WnNTfaZ4MyHCOxFPkcDi l7RXKfNXD3fCY4hZ0xTAPaZHjb x1E3mHS0Z9NusyEmjv4xn9pp VXNjQRhuI75qlBChd0I6MNYhuP V8HBZgpFxbZdTkvX36Gzt+PGNv eAdzd2MvSamub5lrz1phgDd8 LkYiPCCvjeHegIdeTNA5l0ZjTu 74H87hKHlnAUYyCRZoGEJxQTXq gPwlkd0pbB2lQy9+PGNvbCB3 vUO4bU6rMMJoBsA6GUwtT404Ky GtkKCjCusuz2bct5kmfKj2KoJy RYJvmoTopKxuSUN4y4FyBs70 M06aGEysYPEtNIHeSYWzOZZpzR eqac3acW6nNw0+ZD7cp8gxfx48 xU72bWZ+RPNrWRT2eMmiKZgr YYLmxA7qRTyjLjV3SGBzMgAsmK 87zTEnUKegIr6yuSbpfYexGL1y KABetvvnk405NrAyb2hkOJJh vTVhFQxbMBK3K03ji5Z3TWScCQ QaZGJ4nZA7xI7ffPwigipovWCk mOwkzdHnfKxdDAklZFhaD376 IHRvcDsnPlBhdGllbnQgTmFtZT k6U3MdIgn4EUWjvUetBJ7puTYe BCpfBz1zdLqxiJffUG9lJERf lvmjg872JbRok5beXUHljJBrFN epWOP0K28pm6P6XQMkCHNbABT9 jKK6xB6ceYdnhydloRLvgIcc vcVzpJbkZPofNBqvJ255IHCjyE wqEqSnheUbOEYoaNS7JD25XL32 uPUrn7I7kMU0B3NeOGUayrjq cqnwfEG0EGGiPMBblV94Le3gcM eoUg5qOVVkNRQ1XOUfwSFqY3Vu oL0lCjZbZXXtDIVcA0WzoWZs FCotQ462VYjoOeX6RTKmjwNmW8 JkCLXgoTvzRgT5d9B6Om6PB2O1 AB93XS08uRCnu0R3vRQ1U5Di MKTvglwifeyffDO8GJPvUSZkpR 07Ny9kqVxfCo5bQNBsTLB9MQYn rTYaE3EnsK6rNxTlPXZlOBDh G1YzvQDbBFmxA435JOvmZbO8RP AzzrSyK2NmKXMffZcwCfS9k0J9 Jl1MMJp9QZ19ZN70kHCub9F5 hJP0D0FcSOKphumgxyrwkXL3OG ViYAQmiO44Eq5krVbbZg5oTQYw QNW5IYKgtKRpB4HlhW7vLyPl ZZVlMTGdG0JxmFNfYZtgT779XI evIuX7YOHulpGaD0DtYBAbnPas UcE3j9Z1Ks0OTMZdVF47HWL6 yLF6XP12HP81B1NoNivjvSObbA U+PHRhYmxlIHdpZHRoPScxMDAl GeHlzIkiPM6yNu5lWZCcNUWi mYlyaSHnKdRlp7lgDZAjYEkhNZ 9qoSjtG5MikCY3XZYkc7p7Dc78 E00iS6NbmTM+KTOrtLF5bFZ9 sE2jJqKbWhF8BBeuH356HyXrkM LzVxyus5jhj9pwpRp0JrK1VJXk zmCvpHweKYS4h7DzUy50X64a IHdpZHRoPSIxNSUiIHZhbGlnbj 9dnP9wVb9+WMUqhBO2xSC0fU0b WqRzGtF6GRuqJ720FeDyfHQk Zrypf5hkf6mtoYa1DoXxFAAupj GoyUysMJZ1f6AbYk66U9YibKvn l1FiAaz2vm27jENxf0T6nHL0 T3MpGMVqzgqdgSXmqTniQZ3jUZ OgwxthRTYqcB6fOLUhD6c7SiEl MvL8ZAupS8MgziG9ZMPujYHx XUuuDQU4N39xl6E3VHGeZZSbRA A2pAV3jG3ucZkuzaieoRKbzWgl jfTviNyzJSqkRZljT155WSLf xHxqJJIopY6cMQYenKMajZhmUH 4wNTBpbjsnPkRFTVBTRVksIERB RlkGSBI3I9JpNtd1KHTdbOys UO0hsITbHRxfCc3nhJanqKfrFK 4aWKShyqifVSJqjS4hUIJxzTAg nEggIM6oCDInxpzei778IvUl KFW5UKIdcWMqG4CkaF8yHoAuUA HxPUJrY5IgfZRaXXijI131UUkr KcF4BGEmtoWvN4TjEQRkoWee YvU5x1Y4At8lKh5vZv6eFIY4UI 90UO52bXAof1V1vZR3V5VzJUCb fwdxtuzaxVN0VNEqLOPvvW09 mRPxIEumHy5qg2M5o648TBNqFR MtvU57Qb1xgEkcDUFcmOJEsC1r lrpqp4bqnezpYjJiZUCvFAf5 WMc9NUBmoQdaYqQtORH2QxJ9LR U4fJObjG6bbMjngvrazB5dEjn+ IjBsLCTvtsH7U4OiUys7FNAh rQqhMM8kiLWlTGyfWc5rnCeodH kqGV7yIDJwdzesSMOcmI7xMYAc fHGkaBriFL1cHYBaugumr156 RnIxICA2JGKoeKBjX9BzhO0eVj TkVAMaULZtP8BowCHdDMcqL966 HIkaMcC0SEWtpsOjL5VgHDRy oVdfYoQ4c8Z3Wj9UEXcGNA85QI 93dFFff4V5iAG7O0BzPINyommy vnytmIO6KXKfTUCarI94qYGz JOspPb8sn1A5n551HEAeZLHfvR 78Sv7odCfqYSVhnYXNrQ9sgdkn z4bntbcaJwHcVJUaCBx3RYf8 PHYwdSzlAfHtPVJ4RzR0ZOY3fK TxuB6wpQdludvhqK5zTzr+UmVj zREzzU6nOU01fQWjjLmoweK7 U1CgFbojyQL+LT86BARqOT62kJ HydVKlj4ntkAa3PpXxYJRrXAE0 zMoeIMvzh8NkXWPoE37ipCTk n5N0YBXpwMozdIZoMzWclCC4nB 3vNBvtywsjx0zvaxdaJmtag6oc ye94iM62D41rJKpbOMHbJHLk LGToLEWepXtlzm4dzV0oUp7+PG LjpYP7vCU9lV5cZeZgZfB5BTue H287VhWcwVIzIdmfx5dsx5yb xHt6YfTrDXVlpgFhaZxjZVP6l0 QoZe53E92iXMunANBzEMBsIEIr EGDhwGgdyd5bkZ4gJi7+PC9j f2upgc45kL09hOT+BMUuSDF8pB jjZPgrNSGlzF3dFKjsQtK6OMWd HeCewW92gJGkJLkuGu1meGbt mNnqYF1lVNNsidzjn870ZbFgp9 xtAWPfkUNsDQtxNSC2J62tk0G2 TIVuABIhAJG9xGS3uV3xoYad bjogbGVmdDsgdmVydGljYWwtYW bwY205EKLzoOzqMbVndOEqW4xa chDSUX2uPdyzcAM+PHRkIHN0 lEybUAfbHSZlbF8eKIFlC8u1Ca WtUrZ0VEwzE1KwktI7YLSdjRSs RAHkzWPWzI0aasljr5icdaum GjRoAOAbKNy5WJg9KUAkgCkmZx NjHDZ2IkD6NIF7rLBnoZ4wnAck bfapyV3rNsf+RklOOjwvdGQ+ XPMuCLX7wTbtPDekJTVmmS8vAV OdM0y1KfHdOwH3DOnhJ7MmguH1 RXRfpTBgVQOdaZUUaU1wleuf w0xhymcuSxYnHJZjZAe0LZs0TX UclYrxSdJhXAD2SwY9WHX6xVLr dF1jmLpbtghreT9nFby+TVJO OjwvdGQ+LHShCSQ9bDziSVsmSD QdgP1uKWZzP9v3UjLpOyU8SNkf X9KliyW3NTHujRMwJMYdlKIU qS7jffamb9attmawAoHwJTNvDN t8GUw9SMPkhCisFyPzZBA8ZaD3 AKV4bPTnvD9uwSnpggcqxH1b Oyc+ZFM5FDA9PI28TE64Y9LzVu wvdGFibGU+PHRhYmxlIHdpZHRo KAliWIVvNaXtmDscWB9qBu9b YYJdXVFrjFxpeVLdOoKmj3vpSR RpVPtkER1iuAryS5KfwGY9TUQl s7m0Od52G59dF2GsdRM+PGNv zDF5iLX3jN5jZoYlOdJ5ATztN1 90SnGuwERtImgzz4zzc6efoWg1 YfLyNQQcjuNmhJecSIE7o3Es Wl65R37dUKjiOOUuCORyRUWbWX BlmAzejq9oqQ5xZo9+PGNvbCB3 fJS3aW4kWdGaBbF0RUmjL088 PfHkwHNuIxswO77pB6MncDC+PH VfGdo4NUYfsAlqFS4dhHBaOTru Qb2uNKE0RjYrZuSyMBcuX7Qv DFXfpnbqrsqmaRJ5OAXhGVUzzK 64Ot1rtTweHHKsrBPDvJ2iirri j7ifyjfmGuHnIVPqDOb6VKs9 TVBcdVcxMiMnJLA6QfT6KZH5aC OpzQ2dbNizetghsN5kC4TcZOQr arpmSq52rO6tRxZuUbS1RUpc Oyc+TXVtbWVydCBETywgVGltb3 RoeTwvdGQ+KORgOQA5lKizXDzi AQNurI1kSMTyP8g2VfRwHsH9 GMehK5AdGHHasbkwNo22iU5xCs BpIxG8DPfkZ2SfchN1RKLimCKc BZveRVM2W89gn5X6AFDbPMVa NCJ3xHJ7dJ0ooEmgdgtucBHgeE vttoCkiCwgZLgnNCdmT678QYEi vNnjYgLdIyLoCDPhHP34SU60 xVCyw8B2pTX0Y5EfLIAaihdhzj dzmCV8RMJuQFKyiG17uUXzMOaq It6sa7N0c140UHUbWVUijD46 Pe2ggSkdMTXslAGGlG0hcqqty8 xeiekaElPhOPAnUBb6JTo3CBUc kQbnKyKdBSG5MmI1GUO8aLAc bA9gfEpadjdfnZ7sOud+MTItMj ibSfG3W7ZmUua9LSKkgSccXM1e eIBvMPvxMx6sgZcvhGrlSQ5a DHFuzsnhACHynT2dGKUngFZuxZ zpXN4xWHWlxcwlq080HuLkXUN1 RESklBIxB2NcsE4dLuMmSZSn IDLyW1QquSKhCSmoL472LHyaCv P3ASDfxhSnF2EhIRAxfAkhWvI1 n4W6Mm5QOJHpS2ZjWCZZJnoj dGQ+QS31ii92M1QrZigcTdx1SF GxLQF5oAD9kR9vJPKwABzhj2F2 hSW0H4RzeuAddd1gd5kbSMIj TWwsC90wpCDnz4S8IHVsoOS3TX ChoWxdFdIjqO46Xwi+PGNvbGdy o9XrMkcdv5msj7suuQf1DnTc YQIplgNtbResNLX3d8DnYp86H9 9sIHdpZHRoPSIzMCUiIHZhbGln hf8ioL5rZo2+WVAwcUH4nWO5 jQ3iHhRpErG5VNgqB582KmQekO IwFlemt6tta3fepBw1AsMtMVPy qzRqiCojKSO8w0SnNd90H3Pn dObjg4EdTes3mq45zVTaz4Y5bC T3R8FtRGMxtrnwaYMwuYzoYS2a DANchxiuIKQlyB1mYCPhQ6g3 MhKeLgC9QLbwM4LpwkZ7KTQvvS CxKTEcsUTUhY7uhjpws1gmijvw VaEwRMEaMEd3YWw1POBsjWun DcLcHKU2VbC5SWE5qBQdwR3pvB nsxtehnW5aYiv+RmFjaWxpdHk6 KD86KD77mKLaf0B6sUT1Z7Hc DINdeiqcntxgeYH2JYGcOPAurF 98Tj4fdGemCz4wJEWdSAV6KXMv bEGpF0ZyyK1rIgHuULTvFCZa V0FwqRLnRWanP984CNepFwR0LD GvjeMxH0McTOJfqGhdVoR1v3H7 Qk0RsYQzoQXhM7WcGFddwS9j iARfd642UM03IH06rYAfb3A5oY M2L8ZzUPJwmkoiiqprrEV1PMPv UDDfbL61Yc4dfZfsNp1iGOPo KLY1CUNkmWKiI5WivT3bTpSkLS OzQISpU0SbvNCxOFyyH473ZDba NrK3IRZqfgAbN3OuAIPkfLoj VfU7h2S6Od1EGU4xnDPHNVReCv wvdGQ+OLZyNEU2lBgiTUhcDHQt uR5kPZEiE9t3BhTpKiT6MZcw T5IcheH3JPBpcNLrWLSiyIBCuS 6igesso8nsbadfUpMnXPYjTCs5 TJm5DOPlaVcgItDuBJM9ExZ7 WRL2wBIwbU7duXidtpcpgU4tNk c+VGtrV3rqkygoMOGshST0QO17 ZY25X3NwAdzpcRGkkRM+PHRh YmxlIHdpZHRoPScxMDAlJyBzdH rlIL0qRs2rXCEsSFFclNymrTOm AsFhr3tmCWWqRQetFW0sgPcd E7ZyfIX8DBFkg5n2Zi95E44cV0 JvdXA+JYYxrCB5xBC0uR6yCqKj RtM6KQmkH098SgNuwSJfWrxh f0keg4pqqGg6OoBnGBHaoeZgdP zeUPM1s6RjMe12M80tKAiqHRDc HCVpDCYaMTRbvWjsdo5buH9k Ii8+XYTfiQX3vAU8rS0xKyNcXp W5WTzzG351RbIihKShIhsdT33c X4EjfQX+VDEdFon9FHZshIze JA2daOTkUYllTw1bFJQ8XeRwTa FwXVnjX6RfIQUwpoggwrnrgYB8 CUXhUDMsxR91Iv1xzLirUIQu zRPTbI5bstjlf2xovircGyOeGS YzGYj4NLp0KOCwuMxgSaStQQN9 BpZ9KAX1jSLcpB8fxHawlbtq cF5oJ9ErMSPhqzovYi44zK9pSr TbWgM2WWhiEfz+TWFncnVkZXIg QP2weYt0SBp5A6NnCuc1ZGEu mWskHF1zhOKyJPzzWe1hrVzviQ tpQA9cDNFswqmwWAUnxY8yEHEo mKPtlQpcCS2bENUxyxail208 MmSoIZY0HIXrmOLsR2ZuuS8lLu WqZLCxCDGyB4MtjIIfDDncX525 ZYluVbR2UUEltuDuI5QvSCCo cGwdOaG8i2B1Wn25H0UwVwu7HT KcuAmsNK1vmROgRIioVr4nbSth hDwiAZ9bMGRuekiqHKGifC2l WWXelQVriXzsTC1wYRXzdksrv7 96AhTfUCY4GIOisEGiZ5MipJ2h TfRsIRCdENHgE9JgsZAbWOlv N507XWlxTwQ4VGBqjmZhC6DvRQ PzuXebBvS3c2L0Qe6wYb4yVO6r ILIyNG98NN78fASso8S0dMP5 J9MeJRIcrlgybtoifAR7FYWeRC YgiE24wPZqTVtvQm0pf3J5d941 WDZcDZKcbZ39Fi7vfOsvWPIl rNCOeN1eohrkl1hpgvnyEjVnUV XoYBy6ZWc2IYPvpOunSxStNSX0 FxE8TYC4xGLxtC8caXtyhyry dR2cPqd+MO03FF71W4KnXnswhT FibGU+GH2egQA+PHRhYmxlIHdp UNCfMCfoQIRvCuDoxZtvNL2t Mk5yUIRuKZUosCIhkAjnvYnwk6 1pmSObLyweT3i2YNZbwoSkxe9b x0diUUTbGRsnS59kqZEdm0U2 OKSjpYU2KGFfjFmmXpObhO12To c+ZTSyfTqzl6GeCjodt7mik7mm tZt5TnEmMQPwUCTwzTkxku2i pY1lMx4+BI2vq7rppm74xB14tR I+PHRkPjxici8+YC91WZ09V9Lu Xny4cg43uOEcy8C1mVX7H4Ng dsL9EHMqoEYcWEMjjFXHeH5lqz aur9horngyImVeVUNsZFk0RKs6 GWOdwZckIrNwCG64XDS9YWWq vjRtB0JzDSAnxVrpVjS7l7R7Vi 5XGi3HGTKOET98QV92Y1QlKgoy dGFibGU+PHRhYmxlIHdpZHRo WDuhGFUlSdRhaElwPU4oTi5sMH ClYIFslKFknEhvxFadl90ddUPe UxixN6g2LQIkvsGldk4wg6ig NUVpKUuvD86upPZrk8M1SFIrpX K3KYYbhMmwLqHwiT79Jys+PGNv iCuod4AuHeicp3vfg8dycTr5 HqVkWXFzPGDqdWlifw1ibP3vRr 8+EO9zr3zzhz19qQ46eHW+PHRk Pjxici8+DB64HC91Q2NaBdv9 ce70qWIvs8C2rUQ8G9QeuqQ2MU VbkZCkFHOnoVADyO0vswaaj8lw zuybIqDjWMXmAHl5YZx6DQEv fJdzIwLgMJ44PDI0FPJaboYdJ0 PeLGOokFohSeR1o5S1Rj9BMSDA Kk0DXEL5I2LfWcwmeQV+PC90 OPBuQZ29eISpuZVri6wftZb3Yq BtADWeMFE8kYgaJNdow6TsIOFs J79mvKCcp2Z1JZDbaHvnpXGa LpZswZZ2bY4mTCbhoozhv2klla kfWqwfs9jcch08fK60N19iWEgq QLWzWKXtVEDmZNKnwZojql8l jB4kUj1+EGYczNE3cWA1hU7wOE AyXpQ5XKqiZ763PxTwnOWkYusn e0dmc2obgFh4HlO7NASdfkNo tXinQLR8r3DaZe99W26rIHmmJY XrAJEbNkPkZKPznYrkil5hfS6q Ii8+RC9gv4htfp44qB53qQY+ WJZsXZX9xCkwSPxjFXGbtN6vDK iaHmU6WLQeSzBtbV54oBNjAAae Mh6xbYkgkWayEF1nDAKlusin z107AnFmf2ohIKAfjBRfNEvkZI H1J89yu8E0GAMpHRRcVKJ2pEF0 kN1llEmzkfeoxAVfcKuzdiKx pGbzVZwlNEukH101AFYoiDhnEa NxFNO9E0EeDmj1BDKqkYuyED6b zEKjHBbjDb8ioAfwtUlvKN1n LRLeiycgd509ThLpx3vrXQHblO FtSDpeKCG7F05cx1M6XBAgYOAc BKA1lFZ2sR8ayGmlvyqskYNc wKunrqPfmRjzESmlRUpjW237CN RvcDsnPlBPQTwvdGQ+PHRkIHN0 dAdiCTjkBIYcmH0nRFFgV7m5 LhUeHkY4FKvgN6XjsnZ6VRQwoJ RaMZBshJXGyE3jtltdi5gvzzah GnZdAURgONy8JUa4JZGeqOls HhDfQMV4DrB8MGU9rZUkpR5plV miqemvkJ1xHuq+DVGhU7DjgEHl z372U9LtZsx6LKLxeDkcAO0k tBWsQHslNp6kmHvjrWfvDG3zSD Inhnurw830LxSrx0inEZAefEZn UUskQYN2H31yt6J2FJIoUQIn UOL2lZM0mD1vtKsggzqghVAnfM ghjvQvmCbqUShjARqlU686ISZb iBjrPxU3hAF7Z2BsUdmqhZK+ VA60ARDlZK03eRAgoGRme9vkhS b5FkIcQDPvNAW5pKwzLZpip9Zx EDXwQ63goDNwp1V5DHZwpPxf dJDbWmHgwYY6aV8vELogtafen4 adaghyChhfh0yxjq96xS61E44c IHdpZHRoPSIxNSUiIHZhbGln bk1cfA8yXg1+HDEscFB8sRV0sL 7gMXUiCoN5RUqoC186DjSfiOTg Ksuli4vhy6wtcSa8WbB0MWDq enAnrRipGFD2y6LjCx72Q14yVJ suZSOkTQBbZqVqKJEjeEkrwb8h nM9zQa8+XN9cs3oimc27rK96 dHI+UVLcZNV3rRlyRUyjZHKcdG 8pNRjyDbR4XWYnSjPwxI07wDHj GTaqPr6wgNnnsIneGA1vKKQr bnizt225QlYhSIC2TAActMRfV7 LvwK7wOcMfEXUjIOGiX7TztBJd XPdsL985VLvdYeI5PEYtqqFf X5HmMEYfkIqwZsE5o3I9Rc3rNa E0S6NbQrf4ZT45X7MnEdb1KNZv dYkmNY5vpXBgGMwnCt4wqYbw gAicSS9jBGLbmqoww257GaIpAU W7SHFtqOGhA6BolH2xAzXsRZMs QNUhT1LxhALuFIriF435SLjp UnW5ULBmnbWqZ8SiWSDzuZgrRk G1k8D7Nw0DffPccI74WMRhLe9h IGltbXVuaXphdGlvbjwvdGQ+ LGAyRRI8fZirJZyfVSCsjS2hUO YjI8v5QiJcCxH9TNghQ0MgkwF6 ZQAudKAgMUagTEU0Q98ln7S3 WCNdSAFtINR9xGQ9qU3flOchsv ogbGVmdDsgdmVydGljYWwtYWxp K241EOJdtNwhKvVNIolpaCL+ XL75ch29V3CzSfmkEsk0GPTzUK J6bZP0rB2eVQTbJLhsj3U2nFN0 R6UonvOygx6kg9maUBQsJCcq O73zdDMwq2O7ERWauJP8RUQdfL cqUmXdsX80Hym+PGQbTbp6HTWi wOeyQD4qCDXbKOQsixzejTOo zSgqPT2aDKQozzunDTFxhF4sGB VkX7d6TzZzPjT2JLtsQ9QnkeT3 ZPZinZYeOIDlrBWRmO2ktyha b2jrsiirVoKfLLBrDZnnGJFdV9 FxxV4tUiXfLNCzNPGhO4HguRKq YYgaA494VOgeXwS0GYZmlmKb K7BmTRYmzFiuWmO9l3V7Zm1Akf zhS9prPId4K7LuUirecRO+PC90 QRWxXW66fPUdlRBnp1aefQv6 QjCaUAXqOVX2hOjeGJvaj4MoJU XmN45rbOFpf5A5PTIuoOmgzAQy HlSxeXW5qV0nHAwcsqfee8ov cmqyCozey2yimp87rS85Y55hYK kiROAkXEDmEVJdULCfdHvxlx5t qE4vPl6+HTHgoDU1jPM3qD2q DMYjEhL8NIjnE671DzStbAPaWd wuv6prm2fwqFf9LmF8JCIitkDn gGyfEVK6h1VxCa01Z31hIGmj XKMkXVNqWoQsXNPsoLmerk9zzQ 9wIi8+WI6fz3maqt81fV17bVZ+ FYDyTQR6vEzgBBavBXQhgF3q GPrnFfY3ARGsQgBxtB46gPZaFS xuVg9teSmnpTiaJB3tFIYcltip e661FsCrZAP1EGXuxNOhD8Ri dL0zOtKcSEQaMBGnC5TgcPUjOG prZ799OPerWuA6TDEggzTcV6Gu PBHzdJktSvP0a2D2Iu8oOlF9 W1IqOct1DWXefZgjTJ3npPFyTS hbBt6slAeyrAboYN9fCYMsqnka p833DpKcTLF8IJQiqSDxV7Ak aW2fBeKdLEHqCNIcA3RrpTWjPF ulW090GUqrRyL7ISLfbkJyO0Cb DNTbpFpoMnN2z5D2Uw88S6Cy Rqq1OKWqiAqsGU0bsXGkSXpgFc 9bgQsmeFeuJO4aOOZyrnzrg187 ZbIqATX4OYOwhKUxH8YjoH3o LxCtBBTwIAYbW9VgsGNoQVxvK8 77XCsyQhX6LCCsbwVoJ2LeECMg sQhkAxT5g5K5Vm3OcdKmlP15 VBJmKf2oPOwafYDpiGmwuBjsgo wvdGQ+QSCfCUL4mTbuJSizFGQi sG3vFCBsT2i7MeZrNbQ6CRlq Q0CdstB8FPGxkGLuETxpDUK4M1 4gt0L8XQAbXDXbJTY6hHN6wX1k bGlnbjogbGVmdDsgdmVydGlj WWuqYRbjL573WHBdbAoaXeFign DrMR52CQ40Q1VdNoejaVWjkHL+ PHRhYmxlIHdpZHRoPScxMDAl DnQveNobTS9cCy0eENXjSAGnoC NocXhibPxpl69irEVvIonyC2q8 EWGzasLqrw2pw8qjJHHlUGeo N14lgUTfs5P3VGRhkIL6QOIenW zyCkZkiZ75Yes+AITlaWxbu3Eu Pcget6rbc5cfuVx7QmKtXZIu YRKxwCrvzv4fzA6bBy5+PC9jb2 hlfc89tL56mSC+PHRkPjxici8+ DC92YN87Y6HyNsq8nl79oZOx e2G1oEH3R3IqqtW3OLQsdOZhEM IrlWYDfG8kzgtad0qtkataSdMe JDQyUCq7ZId6AUIchTtrXtUl XO85CIO8VTUkfaZeH7ToJMIgnE ntCgX5z7T7Pz1ZZc0YXERIOkC5 J3GzDkchuVZ+RX46YJHtKY20 YnIvPjxici8+PHRhYmxlIHdpZH BzWNwmNETnQyQjmWgnSV3mBm3l QKVvXFApyObxgQKwMfYzq6yb PACdOKhwMQ4geTvhG6WwgIE4QZ Pja4x2Ih13B86sW9GdiGB+PGNv sES7wIK1gM7eHDWbZGLqpaUw fKlhONB8a8GyUi09D9XqnNhmw0 ZtGpa6an19iULnx1U1oAE5Y9Pw LZAunljkfXSciLmjUJ3tHOZo gjsjYJMliI9xWJQwM3c4VqHnCb A3SBnsT9RvsmQ2HIAkvGKvPYrj VPG5I46zz7K5WWXlOQCqRDD7 vIK3yT1xtBoqtluqkKLznWtizw SrjZeaUTlyFWdqC373KTKxtVxl Vu7HSSI1SELeGQAsd4CzHQ43 sVNgvuTeu8WmP98gVVHqJGHvtI EqPVGlSPZek6T2sGAphREbWBTa NHeqe7JtbvZbgdPtq3VkbIGo H1JsoEZcKOsgKQUxGQYrYTSrXC 65T6XsK1gbbfRpYMycv6U3TCJr IHRoZSBuYXJyYXRpdmUgcGhy MQPgBVEsvL38APCfDaGmyOM0rW SdV34pgZ4gNIHvQsB4AYFgKJ6w rBQylZZyXJSgQSBzwsS7rUQ1 WAWjDM2pNDNyw9NmeVJradXdzR lnaHRseSBkaWZmZXJlbnQgdGVy zQmfw9pqZ5syQZ65IK44A6La PjwvdGFibGU+TWHgDb46FnEzGl wvdHI+CV53HBPnWC84dRPoeXXr y7plaFn4ZcTrXAJgUND5gNhf QLbzf6PmDEVbG07jqTSrt8F0QV BlxChsxMQuBlIavFK0kA5rIKjw wzzit4hoalunIuvzg7gqcb25 vM93I54mXGutEFJtKEY8CFQoTI HssZxxja6hgC4lSl4+PGNvbCB3 fOQ3lR6nPYKpVeN9BTypH309 CxTygSGtIcpcZ78wA9FzeAC+PH UwKcw3DD15H4AqKgh7MJPkoIwf VN8fMODrNIGsrgpdefnvgZT5 EWSbVPGbkF40Az7mmAkgVYQtqG PVhM8yrbmmc3abtznmPsKsXHHr ECc6KAs8RFIgmGgzGsNlYUI5 AnL7DZK9wIFcpO8emRnmwzywxF 9wOyc+N93qOTRtGpj0EKUWg8q4 MORqXNSPIS4mkHYvriancCV+ GL59op05V2VsLumdMrj1NHLlDU Z2sSN4vL4hZPHtBUjns5C9aOQ7 S9EbeyXari7zu7mtERYeDZwo H32ruIFbn8H8VUDziRM8ZFXxtS icOlVtyN18Qyx+SCJysJouo6Rk Ndqae9scm7wowVh8LtQeWXIa ukPpxRqrDYD8h6HhFm69M64oQR ydKUJgHEB7SMLbUCNyoHener0d hH7jAq6+HV0zj6jxju64xO74 dHI+PHRkPjwvdGQ+QRDxHGO5fH cmUFvjfORrTMnsQx9olDtaiCui AB0pIIWlmdljn459LiKvXES9 DYMvwLHnT9UygB0jCuIdPHDqOF CyL5VudIKuFMxqD796FBjvIzE0 CJNuodKgZ3GqQVOqaAfdTcB2 q8E7Ng9LBMCjBZWbmiCmBhCpNB MvMDQvMjAyMSAxMDoyMSBhbTwv dGQ+LX89lw02G8UoXxlbVugq ci8+KYGnMf43E1w2pFi+ [facility] 01-15-2021 Consent Forms [id number]#[facility] [id number]#1.00OT[facility]ESS/REST INJE CTIONon 06-03-2020 [facility] CARDIAC STRESS/REST INJECTION Patient Name: SUHAIL PADGETT STUDY: MYOCARDIAL PERFUSION STRESS TEST WITH LEXISCAN Performing facility: [facility], [address] [place] [address], [address], [place] [address] [facility] Provider: Gera Johnson MD, [facility] PCP: Dr. Antonella Gardner Supervising provider: Jenna Boone MD INDICATION: CAD; Dyspnea Ventircular fibrillation HISTORY: Gender: M; Age: 69 y/o ; Height: 185.42 cm; Weight: 098.3265666 kg. High Cholesterol; CAD; HTN; ICD SOB; Quit smoking Unknown years ago. PTCA on . COMPARISON: Previous nuclear testing completed [id number] [facility]. ACCESSION NUMBER(S): [id number]; [id number]; [id number] ORDERING CLINICIAN: CORY JOHNSON TECHNIQUE: TWO DAY protocol. Stress injection: Date:06/03/2020, 33.7 mCi of Myoview IV 20 seconds after rapid injection of Lexiscan. Rest injection: Date: 06/04/2020, 33.9 mCi of Myoview IV at rest. The patient had a rapid injection of 0.4 mg of Lexiscan IV over 10 seconds. Imaging was performed by gated tomographic technique. Reason for Lexiscan: hip/knee pain, ICD STRESS TEST DATA: Resting heart rate was 54 BPM. Resting blood pressure was 142/80 mmHg. Peak blood pressure was 136/80 mmHg. Peak heart rate was 57 BPM. TEST TERMINATED DUE TO: Protocol completed FINDINGS: STRESS TEST RESULTS: Resting electrocardiogram revealed normal sinus rhythm without ST-T changes. There were no significant ischemic ECG changes or dysrhythmias. The patient did not have chest pains/symptoms during procedure. There was a normal recovery phase. IMAGING RESULTS: Image quality was good. Rest and stress tomographic images were reviewed and revealed abnormal perfusion. There was evidence of perfusion abnormality with cm area of moderate which is partially reversible on rest images consistent with inferolateral ischemia. There was evidence of perfusion abnormality with moderate area of moderate which is fixed on both rest and stress images consistent with small inferolateral infarction. There was not left ventricular dilatation with stress. Overall left ventricular systolic function appeared to be abnormal. There were regional wall motion abnormalities with severe inferolateral hypokinesis. LVEF was 41%. TID is 1.03 and is normal. There was no evidence of attenuation artifact. IMPRESSION: Abnormal Lexiscan Myoview cardiac perfusion stress test. Moderate inferolateral myocardial ischemia by perfusion imaging. Small inferolateral myocardial infarction by perfusion imaging. Abnormal left ventricular systolic function. Left ventricular ejection fraction 41 %. No significant changes by comparison to prior study. Electronically signed by: JENNA BOONE MD Normal [facility] Vital Signs Date Time Vital Sign Value Performing Clinician Facility 11-16-2023 13:00-0500 Body height 184.15 cm Destiny Gardner Other [facility] Other 11-16-2023 13:00-0500 Body mass index (BMI) [Ratio] 33.3 kg/m2 Destiny Gardner Other [facility] Other 11-16-2023 13:00-0500 Body weight 112.95 kg Destiny Gardner Other [facility] Other 11-16-2023 13:00-0500 Diastolic blood pressure 77 mm[Hg] Destiny Gardner Other [facility] Other 11-16-2023 13:00-0500 Systolic blood pressure 118 mm[Hg] Destiny Gardner Other [facility] Other 10-06-2023 14:08-0500 Body height 185.4 cm Cory Johnson MD Work Phone: [facility] 10-06-2023 14:08-0500 Body mass index (BMI) [Ratio] 33.51 kg/m2 Cory Johnson MD Work Phone: [facility] 10-06-2023 14:08-0500 Body weight 115.21 kg Cory Johnson MD Work Phone: [facility] 10-06-2023 14:08-0500 Diastolic blood pressure 66 mm[Hg] Cory Johnson MD Work Phone: [facility] 10-06-2023 14:08-0500 Heart rate 60 /min Cory Johnson MD Work Phone: [facility] 10-06-2023 14:08-0500 Systolic blood pressure 112 mm[Hg] Cory Johnson MD Work Phone: [facility] 01-13-2023 15:53-0500 Body height 185.42 cm Destiny Gardner Work Phone: [facility] DO Work Phone: 01-13-2023 15:53-0500 Body mass index (BMI) [Ratio] 33.38 kg/m2 Destiny Gardner Work Phone: [facility] DO Work Phone: 01-13-2023 15:53-0500 Body surface area Derived from formula 2.38 m2 Destiny Gardner Work Phone: [facility] DO Work Phone: 01-13-2023 15:53-0500 Body weight 114.76 kg Destiny Gardner Work Phone: [facility] [address] DO Work Phone: 01-13-2023 15:53-0500 Diastolic blood pressure 60 mm[Hg] Destiny Gardner Work Phone: [facility] DO Work Phone: 01-13-2023 15:53-0500 Heart rate 64 /min Destiny Gardner Work Phone: [facility] DO Work Phone: 01-13-2023 15:53-0500 Systolic blood pressure 92 mm[Hg] Destiny Gardner Work Phone: [facility] DO Work Phone: 11-17-2022 08:59-0500 Heart rate 74 /min MD Destiny Gardner Work Phone: [facility] 11-17-2022 08:00-0500 Body temperature 97.8 [degF] MD Destiny Gardner Work Phone: [facility] 11-17-2022 08:00-0500 Diastolic blood pressure 84 mm[Hg] MD Destiny Gardner Work Phone: [facility] 11-17-2022 08:00-0500 Respiratory rate 19 /min MD Destiny Gardner Work Phone: [facility] 11-17-2022 08:00-0500 SaO2% (BldA) [Mass fraction] 93 % MD Destiny Gardner Work Phone: [facility] 11-17-2022 08:00-0500 Systolic blood pressure 151 mm[Hg] MD Destiny Gardner Work Phone: [facility] 11-17-2022 03:00-0500 Body height 185.42 cm MD Destiny Gardner Work Phone: [facility] 11-17-2022 03:00-0500 Body weight 112.6 kg MD Destiny Gardner Work Phone: [facility] 11-17-2022 02:42-0500 Diastolic blood pressure 95 mm[Hg] MD Destiny Gardner Work Phone: [facility] 11-17-2022 02:42-0500 Heart rate 65 /min MD Destiny Gardner Work Phone: [facility] 11-17-2022 02:42-0500 Respiratory rate 18 /min MD Destiny Gardner Work Phone: [facility] 11-17-2022 02:42-0500 SaO2% (BldA) [Mass fraction] 95 % MD Destiny Gardner Work Phone: [facility] 11-17-2022 02:42-0500 Systolic blood pressure 196 mm[Hg] MD Destiny Gardner Work Phone: [facility] 11-17-2022 01:50-0500 Body height 185.42 cm MD Destiny Gardner Work Phone: [facility] 11-17-2022 01:50-0500 Body weight 113.75 kg MD Destiny Gardner Work Phone: [facility] 11-17-2022 01:39-0500 Body temperature 97.4 [degF] MD Destiny Gardner Work Phone: [facility] 11-04-2022 13:15-0500 Body height 185.42 cm Destiny Gardner Work Phone: [facility] [address] DO Work Phone: 11-04-2022 13:15-0500 Body mass index (BMI) [Ratio] 32.85 kg/m2 Destiny Gardner Work Phone: [facility] [address] DO Work Phone: 11-04-2022 13:15-0500 Body surface area Derived from formula 2.36 m2 Destiny Gardner Work Phone: [facility] [address] DO Work Phone: 11-04-2022 13:15-0500 Body weight 112.95 kg Destiny Gardner Work Phone: [facility] [address] DO Work Phone: 11-04-2022 13:15-0500 Diastolic blood pressure 64 mm[Hg] Destiny Gardner Work Phone: [facility] [address] DO Work Phone: 11-04-2022 13:15-0500 Heart rate 60 /min Destiny Gardner Work Phone: [facility] [address] DO Work Phone: 11-04-2022 13:15-0500 Systolic blood pressure 138 mm[Hg] Destiny Gardner Work Phone: [facility] [address] DO Work Phone: 11-05-2021 13:12-0500 Body height 185.42 cm Destiny Gardner Work Phone: [facility] DO Work Phone: 11-05-2021 13:12-0500 Body mass index (BMI) [Ratio] 32.22 kg/m2 Destiny Gardner Work Phone: [facility] DO Work Phone: 11-05-2021 13:12-0500 Body surface area Derived from formula 2.34 m2 Destiny Gardner Work Phone: [facility] DO Work Phone: 11-05-2021 13:12-0500 Body weight 110.77 kg Destiyn Gardner Work Phone: [facility] DO Work Phone: 11-05-2021 13:12-0500 Diastolic blood pressure 78 mm[Hg] Destiny Gardner Work Phone: [facility] DO Work Phone: 11-05-2021 13:12-0500 Heart rate 62 /min Destiny Gardner Work Phone: [facility] DO Work Phone: 11-05-2021 13:12-0500 Systolic blood pressure 136 mm[Hg] Destiny Gardner Work Phone: [facility] DO Work Phone: Encounters Encounter Date Encounter Type Care Provider Facility Start: 01-19-2024 End: 01-19-2024 ambulatory SUHAIL NARANJO Not Available Start: 11-30-2023 End: 11-30-2023 ambulatory Cory Johnson Facility:[facility] Start: 11-30-2023 End: 11-30-2023 ambulatory MD Destiny Gardner Work Phone: [facility] Work Phone: Start: 11-30-2023 End: 11-30-2023 Patient encounter procedure MD Destiny Gardner Work Phone: [facility] [facility] Start: 11-16-2023 End: 11-16-2023 ambulatory Destiny Gardner Other [facility] [employer] Other Start: 11-16-2023 Patient encounter procedure Destiny Gardner [facility] Start: 11-16-2023 Telephone encounter Destiny Gardner [facility] Start: 10-06-2023 End: 10-06-2023 ambulatory CORY JOHNSON [facility] Ambulatory Start: 10-06-2023 End: 10-06-2023 Office outpatient visit 25 minutes Cory Johnson MD [facility] Comment on above: Arteriosclerosis of coronary artery (Primary Dx); Essential hypertension; Mixed hyperlipidemia; ICD (implantable cardioverter-defibrillator), single, in situ; Ventricular fibrillation (CMS/HCC); Status post angioplasty Start: 08-14-2023 End: 08-14-[address] Destiny Gardner Facility:[id number] Start: 08-14-2023 End: 08-14-2023 ambulatory MD Destiny Gardner Work Phone: [facility] Work Phone: Start: 08-14-2023 End: 08-14-2023 Patient encounter procedure MD Destiny Gardner Work Phone: [facility] Start: 05-10-2023 End: 05-10-[address] Destiny Gardner Facility:[id number] Start: 05-10-2023 End: 05-10-2023 ambulatory MD Destiny Gardner Work Phone: [facility] Work Phone: Start: 05-10-2023 End: 05-10-2023 Patient encounter procedure MD Destiny Gardner Work Phone: [facility] Start: 01-13-2023 Office outpatient vi sit 25 minutes Destiny Gardner Work Phone: [facility] DO Work Phone: Start: 01-13-[address] Cory Johnson Facility: Start: 12-19-2022 End: 12-19-2022 ambulatory Cory Johnson Facility:[facility] Start: 12-19-2022 End: 12-19-2022 ambulatory MD Destiny Gardner Work Phone: [facility] Work Phone: Start: 12-19-2022 End: 12-19-2022 Patient encounter procedure MD Destiny Gardner Work Phone: [facility] Start: 11-17-[address] Destiny Gardner Facility:[id number] Start: 11-17-2022 End: 11-17-2022 Evaluation and management of inpatient MD Destiny Gardner Work Phone: [facility] [place] [facility] Work Phone: Start: 11-17-2022 End: 11-17-2022 observation encounter MD Destiny Gardner Work Phone: [facility] Work Phone: Start: 11-10-2022 Adult health examination Miri Gardner Other [facility] [employer] [employer] Other Start: 11-10-2022 End: 11-11-[address] DESTINY GARDNER Facility:H1 Start: 11-04-2022 Office outpatient vi sit 25 minutes Destiny Gardner Work Phone: [facility] 600 DO Work Phone: Start: 11-04-[address] Destiny Gardner Facility: Start: 09-14-2022 End: 09-14-2022 ambulatory MD Destiny Gardner Work Phone: [facility] Work Phone: Start: 09-14-2022 End: 09-14-2022 Patient encounter procedure MD Destiny Gardner Work Phone: [facility] Start: 07-26-2022 Rx Renewal Destiny Gadrner Work Phone: [facility] 250 DO Work Phone: Start: 05-02-2022 Rx Renewal Destiny Gardner Work Phone: [facility] 250 DO Work Phone: Start: 03-30-2022 End: 03-30-2022 Patient encounter procedure MD Destiny Gardner Work Phone: [facility] Start: 11-17-2021 Rx Renewal Destiny Gardner Work Phone: [facility] 250 DO Work Phone: Start: 11-16-2021 Rx Renewal Destiny Gardner Work Phone: [facility] DO Work Phone: Start: 11-05-2021 FUV, Provider: Cory Johnson, Status: Pen, Time: 1:00 PM Destiny Gardner Work Phone: [facility] DO Work Phone: Start: 11-05-2021 Office outpatient vi sit 25 minutes Destiny Gardner Work Phone: [facility] 250 DO Work Phone: Start: 11-02-2021 Rx Renewal Destiny Gardner Work Phone: [facility] DO Work Phone: Procedures Date Procedure Procedure Detail Performing Clinician Start: 11-17-2022 Plain chest X-ray MD Danya Gardner Work Phone: Start: 11-10-[address] DESTINY GARDNER Comment on above: Performed By: #### P [facility] #### [facility] [address] [place] [address] Dr. Shadia Cardozo Start: 09-26-2017 Screening for malign ant neoplasm of prostate Destiny Kendra Other Start: 08-29-2013 General examination of patient Destiny Kendra Other Colonoscopy Destiny Jose Kendra Work Phone: Hernia repair Destiny Jose Kendra Work Phone: Percutaneous translu cat coronary angioplasty Destiny Jose Kendra Work Phone: Screening for malign ant neoplasm of prostate Destiny Gardner Other Plan of Treatment Date Care Activity Detail Author Start: 01-21-2033 DTaP/Tdap/Td Vaccine s (2 - Td or Tdap) DTaP/Tdap/Td Vaccines (2 - Td or Tdap) [facility] Start: 06-28-2024 End: 06-28-2024 Patient encounter procedure 06/28/2024 1:10 PM EDT [facility] [address] [address] Cory Johnson MD 703 [facility] 2, [address] [address] [facility] Start: 11-13-2023 COVID-19 Vaccine (5 - Moderna series) COVID-19 Vaccine (5 - Moderna series) [facility] Start: 11-11-2023 Medicare Annual Well ness Visit Medicare Annual Wellness Visit (AWV) [facility] Start: 10-06-2023 FUV, Provider: Cory Johnson, Status: Pen, Time: 1:50 PM FUV, Provider: Cory Johnson, Status: Pen, Time: 1:50 PM [facility] 250 DO Work Phone: Start: 01-13-2023 FUV, Provider: Cory Johnson, Status: Pen, Time: 3:30 PM FUV, Provider: Cory Johnson, Status: Pen, Time: 3:30 PM [facility] 600 DO Work Phone: Start: 12-26-2022 ECHO, Provider: KAI NESBITT [facility] 01,[id number], Status: Pen, Time: 1:30 PM ECHO, Provider: ALEXIS [facility] ,[id number], Status: Pen, Time: 1:30 PM [facility] 600 DO Work Phone: Start: 11-18-2022 Creatine kinase [Enzymatic activity/volume] in Serum or Plasma [facility] Start: 11-18-2022 Troponin I.cardiac [Mass/volume] in Serum or Plasma by High sensitivity method [facility] Start: 11-18-2022 [facility] Start: 11-17-2022 [facility] Start: 11-17-2022 [facility] Start: 11-17-2022 [facility] Start: 11-17-2022 Referral to gunnery/ordnance officer [facility] Start: 11-17-2022 End: 11-17-2022 [facility] Start: 11-17-2022 Hospital admission [facility] Start: 11-17-2022 Plain chest X-ray XR chest 2V* [facility] Start: 11-17-2022 XR Chest 2 Views [facility] Start: 11-04-2022 FUV, Provider: Cory Johnson, Status: Pen, Time: 1:10 PM FUV, Provider: Cory Johnson, Status: Pen, Time: 1:10 PM [facility] Work [facility]: Start: 2013 Abdominal aortic aneurysm screening Abdominal Aortic Aneurysm (AAA) Screening [facility] Start: 1966 Diabetes mellitus screening Diabetes Screening [facility] Start: 1966 Hepatitis C screening Hepatitis C Sc reening [facility] Start: 1948 Lipid panel Lipid Panel [facility] Start: 1948 Screening for malign ant neoplasm of colon [facility] Patient referral [facility] Work Phone: Immunizations Immunization Date Immunization Notes Care Provider Milagros stephenie 10-04-2022 influenza, injectabl e, quadrivalent, preservative free Cory Johnson MD Work Phone: [facility] Work Phone: 10-04-2022 influenza, seasonal, injectable Destiny E Gardner Work Phone: [facility] 600 DO Work Phone: Comment on above: Series: 09-14-2022 Fluzone High-Dose Quadrivalent 0.7 ML Intramuscular Suspension Prefilled Syringe Destiny E Gardner Work Phone: [facility] 600 DO Work Phone: 09-06-2022 Moderna COVID-19 Biv al Booster 50 MCG/0.5ML Intramuscular Suspension Destiny E Gardner Work Phone: [facility] 600 DO Work Phone: 02-23-2022 Moderna COVID-19 Vaccine 100 MCG/0.5ML Intramuscular Suspension Destiny E Gardner Work Phone: [facility] 600 DO Work Phone: 09-24-2021 Moderna COVID-19 Vaccine 100 MCG/0.5ML Intramuscular Suspension Destiny E Gardner Work Phone: [facility] 250 DO Work Phone: 09-14-2021 Fluzone High-Dose Quadrivalent 0.7 ML Intramuscular Suspension Prefilled Syringe Destiny E Gardner Work Phone: [facility] 250 DO Work Phone: 02-11-2021 Moderna COVID-19 Vaccine 100 MCG/0.5ML Intramuscular Suspension Destiny E Gardner Work Phone: [facility] 250 DO Work Phone: 01-14-2021 Moderna COVID-19 Vaccine 100 MCG/0.5ML Intramuscular Suspension Destiny Gardner Work Phone: [employer] DO Work Phone: 11-09-2020 influenza virus vaccine, split virus (incl. purified surface antigen) Destiny Kendra Other [employer] Other 08-20-2019 influenza, high dose seasonal, preservative-free Destiny aGrdner Work Phone: [employer] DO Work Phone: 09-26-2017 influenza virus vaccine, split virus (incl. purified surface antigen) Destiny Gardner Other [employer] Other 09-20-2017 influenza, injectabl e, quadrivalent, preservative free Destiny Gardner Work Phone: [facility] [employer] DO Work Phone: 12-21-2014 pneumococcal polysaccharide vaccine, 23 valent Destiny Jose Gardner Work Phone: [employer] DO Work Phone: 11-19-2014 pneumococcal polysaccharide vaccine, 23 valent Destiny E Kendra Work Phone: [facility] [employer] DO Work Phone: 08-29-2013 tetanus and diphther ia toxoids, adsorbed, preservative free, for adult use (5 Lf of tetanus toxoid and 2 Lf of diphtheria toxoid) Destiny Gardner Other [employer] Other Payers Date Payer Category Payer Unknown 2022 Self-pay [id number] 2013 Medicare MEDICARE MEDICAR E RAILROAD [id number] 2013-Present [address] [place] [address] [id number] 1959 Medicare [id number] 1959 Unknown [id number] 1948 Unknown [id number] 1948 Unknown [id number] [id number] 1948 Unknown [id number] [id number] 1948 Unknown [id number] [id number] 1948 Unknown [id number] [id number] 1948 Unknown [id number] 2.16.840.1.971565.3.579.2.356 1948 Unknown [id number] 2.16.840.1.473350.3.579.2.356 1948 Unknown [id number] [id number] 1948 Unknown [id number] 2.16.840.1.590556.3.579.2.1244 1948 Unknown [id number] 2.16.840.1.158553.3.579.2.1259 1948 Unknown [id number] [id number] 1948 Unknown [id number] [id number] Unknown [id number] [id number] Unknown [id number] [id number] Unknown [id number] [id number] Unknown [id number] [id number] Social History Date Type Detail Facility Start: 10-06-2023 No illicit drug use No illicit drug use -[facility] DO Work Phone: Comment on above: Occasionally; 2-3 cups of coffee d aily; Start: 1950 Sex Assigned At Male F [facility] Start: 11-17-2022 End: 11-17-2022 Tobacco smoking status [facility] Never smoked tobacco (finding) [facility] Start: 10-06-2023 Tobacco smoking status NHIS Ex-smoker [facility] End: 11-20-1985 History of tobacco use Current smoker [facility] Work Phone: End: 11-20-1985 History of tobacco use Cigarette Smoker [facility] Work Phone: Start: 10-06-2023 Tobacco use and exposure Smokeless tobacco non-user [facility] Work Phone: Start: 10-06-2023 Alcohol intake Current drinke r of alcohol (finding) [facility] Work Phone: Start: 10-06-2023 Tobacco use panel [facility] Work Phone: Start: 10-06-2023 Alcohol Comment ocassionally [facility] Work Phone: Start: 1950 Sex Assigned At Not on file [facility] Work Phone: Start: 09-26-2023 End: 10-06-2023 Exposure to SARS-CoV-2 (event) Not sure [facility] Goals Date Patient Goal Desired Activity /State Functional Status Date Assessment Result Facility 11-17-2022 Functional status Patient at Baseline [facility] Work Phone: Mental Status Date Assessment Result Facility 11-17-2022 Cognitive function Cognitive Sta tus Patient at Baseline [facility] Work Phone: Clinical Notes 11-17-2022 to 11-16-2023 Note Date & Type Note Facility 11-16-2023 Evaluation note Encounter Date Diagnosis Assessment Notes Oct, Medicare annual wellness visit, subsequent (ICD-10 - Z00.00) Personalized health advice was given to the beneficiary including a written plan for screenings discussed and provided. Advanced care planning reviewed and/or information given as requested. Additional counseling was provided here today in regards to, [ ]. The above visit was performed by [ ], under direct supervision of [ ]. Document reviewed and amended by provider signed below. Oct, CAD in [place] artery (ICD-10 - I25.10) as above Oct, Elevated glucose (ICD-10 - R73.09) as above Oct, Screening PSA (prostate specific antigen) (ICD-10 - Z12.5) Oct, Other obesity due to excess calories (ICD-10 - E66.09) Pt already on GLP out of pocket from a clinic. Requests rx. Oct, Body mass index [BMI] 33.0-33.9, adult (ICD-10 - Z68.33) Aug, Hyperlipidemia , unspecified (ICD-10 - E78.5) DYSLIPIDEMIA Chronic problem; due for labs. [employer] Other 11-17-2023 History of Present illness Narrative* Cory Johnson MD - 10/06/2023 1:50 PM EST Subjective Suhail Padgett is a 72 y.o. male Chief Complaint Follow-up HPI Patient returns in follow-up of problems as noted. He is doing well. I cannot elicit any of the anginal symptomatology that preceded his diagnosis and subsequent PTCA. Likewise he has had no arrhythmia symptoms of palpitations syncope near syncope no defibrillator shock. Recent defibrillator checksare reviewed and they demonstrate satisfactory device performance and no underlying arrhythmia necessitating adjustments in therapy. Because of all the above we believe he is doing well Visit Vitals BP 112/66 (BP Location: Right arm, Patient Position: Sitting) Pulse 60 Ht 1.854 m (6' 1 ) Wt 115 kg (254 lb) BMI 33.51 kg/m Smoking Status Former BSA 2.43 m Objective Physical Exam Constitutional: Appearance: Normal appearance. He is normal weight. HENT: Nose: Nose normal. Neck: Vascular: No carotid bruit. Cardiovascular: Rate and Rhythm: Normal rate. Pulses: Normal pulses. Heart sounds: Normal heart sounds. Pulmonary: Effort: Pulmonary effort is normal. Abdominal: General: Bowel sounds are normal. Palpations: Abdomen is soft. Genitourinary: Rectum: Normal. Musculoskeletal: General: Normal range of motion. Cervical back: Normal range of motion. Right lower leg: No edema. Left lower leg: No edema. Skin: General: Skin is warm and dry. Neurological: General: No focal deficit present. Mental Status: He is alert. Psychiatric: Mood and Affect: Mood normal. Behavior: Behavior normal. Thought Content: Thought content normal. Judgment: Judgment normal. Current Medications Current Outpatient Medications: ascorbic acid, vitamin C, 500 mg capsule, Take 1 capsule by mouth once daily., Disp: , Rfl: aspirin 81 mg EC tablet, Take 1 tablet (81 mg) by mouth once daily., Disp: , Rfl: cholecalciferol (Vitamin D-3) 25 MCG (1000 UT) tablet, Take 1 tablet (25 mcg) by mouth once daily.,Disp: , Rfl: citalopram (CeleXA) 20 mg tablet, Take 1 tablet (20 mg) by mouth once daily., Disp: , Rfl: cyanocobalamin, vitamin B-12, (Vitamin B-12) 1,000 mcg tablet extended release, Take 1 tablet (1,000 mcg) by mouth once daily., Disp: , Rfl: digoxin (Lanoxin) 125 MCG tablet, Take 1 tablet (125 mcg) by mouth once daily., Disp: , Rfl: donepezil (Aricept) 10 mg tablet, Take 1 tablet (10 mg) by mouth once daily., Disp: , Rfl: finasteride (Proscar) 5 mg tablet, Take 0.5 tablets (2.5 mg) by mouth 3 times a week., Disp: , Rfl: fish oil concentrate ([place]-3) 120-180 mg capsule, Take 1 capsule (1 g) by mouth once daily., Disp:, Rfl: glucosamine/chondr zambrano A sod (OSTEO BI-FLEX ORAL), Take 1 capsule by mouth once daily., Disp: , Rfl: lisinopril 10 mg tablet, TAKE 1 TABLET DAILY, Disp: 90 tablet, Rfl: 3 magnesium oxide (Mag-Ox) 400 mg (241.3 mg magnesium) tablet, Take 1 tablet (400 mg) by mouth once daily., Disp: , Rfl: metoprolol tartrate (Lopressor) 50 mg tablet, Take 1 tablet by mouth once daily., Disp: , Rfl: multivitamin with minerals (ofplbnabjpee-jphh-tiwvy acid) tablet, Take 1 tablet by mouth once daily., Disp: , Rfl: nitroglycerin (Nitrostat) 0.4 mg SL tablet, Place 1 tablet (0.4 mg) under the tongue every 5 minutes if needed for chest pain., Disp: , Rfl: psyllium (Metamucil) 3.4 gram packet, Take 1 packet by mouth once daily., Disp: , Rfl: simvastatin (Zocor) 40 mg tablet, Take 1 tablet (40 mg) by mouth once daily at bedtime., Disp: 90 tablet, Rfl: 3 Assessment/Plan 1. Arteriosclerosis of coronary artery Asymptomatic without angina or anginal equivalent symptomatology 2. Essential hypertension Well-controlled on current therapy 3. Mixed hyperlipidemia Good control on current therapy 4. ICD (implantable cardioverter-defibrillator), single, in situ Device check satisfactory with no component failure and no underlying arrhythmia necessitating adjustments 5. Ventricular fibrillation (CMS/HCC) Primary indication for defibrillator implant. No recurrence. 6. Status post angioplasty Satisfactory result with elimination of anginal symptomatology documented in this [facility] Work Phone: 1(147) 402-592711-17-2023 Instructions* Patient Instructions* Lorelei Gibbs LPN - 10/06/2023 1:50 PM EST Please bring all medicines, vitamins, and herbal supplements with you when you come to the office. Prescriptions will not be filled unless you are compliant with your follow up appointments or have a follow up appointment scheduled as per instruction of your physician. Refills should be requested at the time of your visit. Pacemaker/Defibrillator follow up per routine documented in this [facility] Work Phone: 1(409) 970-433812-29-2022 Progress note Author Jhony Almonte [facility] November 17, 2022 5:11pm Note Date/Time November 17, 2022 11:35am [facility] [address] [place] [address] Hospitalist Progress Note Signed Patient: Suhail Padgett MR#: [id number] : 1950 Acct:[id number] Age/Sex: 72 / M Adm Date: 2 Loc: Room: [address] [place] [address] Type: DIS INOo Attending Dr: Jhony Almonte DO Copies to: ~ Date of Service: 11/17/2022 Subjective Subjective Narrative: Patient was seen and examined resting comfortably in bed today. He initially presented for stabbing sharp chest pain located in the left-sided chest without radiation. Much improved however does seem to be still mildly present. This pain is nonradiating or affected by changes in position. However does state that can get worse on palpation. Troponins x3 all within normal limits starting at 17, 15, 14. BNP 99. Does have mildly elevated WBC at 14.5. Patient denies any other complaints at this time including headache, dizziness, shortness of breath, nausea, vomiting or abdominal pain. Exam Physical Exam Vital Signs: Temp Pulse Resp BP Pulse Ox O2 Del Method 97.8 F 74 19 151/84 H 93 L Room Air 11/17/22 08:00 11/17/22 08:59 11/17/22 08:00 11/17/22 08:00 11/17/22 08:00 11/17/22 08:00 Narrative: GENERAL APPEARANCE: Alert, up in bed AAOx3 NECK: Neck soft w/o masses, no JVD CARDIAC: Normal S1 and S2. No S3, S4 or murmurs. Mild tenderness reproduced on palpation of the left chest LUNGS: Clear to auscultation bilaterally. no wheeze/rhonchi/rales ABDOMEN: Positive bowel sounds. Soft, nontender. No guarding or signs of an acute abdomen MUSCULOSKELETAL: No joint erythema or tenderness. EXTREMITIES: No clubbing, cyanosis or edema PSYCHIATRIC: Appropriate mood and affect Objective Lab Results 11/17/22 01:41 11/17/22 01:41 Meds Allergies and Active Meds Allergies No Known Allergies Allergy (Verified 11/17/22 01:38) Active Meds: Active Medications Generic Name Dose Route Start Last Admin Trade Name Cedq PRN Reason Stop Dose Admin Atorvastatin Calcium 20 mg 11/17/22 22:00 Atorvastatin 20 Mg Tablet PO 11/17/23 21:59 QHS GIANCARLO Citalopram Hydrobromide 20 mg 11/17/22 09:00 11/17/22 08:59 Citalopram 20 Mg Tablet PO 11/17/23 08:59 20 mg DAILY GIANCARLO Administration Digoxin 125 mcg 11/17/22 09:00 11/17/22 08:59 Digoxin 125 Mcg Tablet PO 11/17/23 08:59 125 mcg DAILY GIANCARLO Administration Enoxaparin Sodium 40 mg 11/17/22 10:00 11/17/22 09:00 Enoxaparin 40 Mg/0.4 Ml Syringe SUBCUT 11/17/23 09:59 40 mg DAILY@10 GIANCARLO Administration Finasteride 2.5 mg 11/18/22 09:00 Finasteride 5 Mg Tablet PO 11/18/23 08:59 [id number] GIANCARLO Hydrochlorothiazide 25 mg 11/17/22 09:00 11/17/22 08:59 Hydrochlorothiazide 25 Mg Tablet PO 11/17/23 08:59 25 mg DAILY GIANCARLO Administration Lisinopril 10 mg 11/17/22 09:00 11/17/22 08:59 Lisinopril 10 Mg Tablet PO 11/17/23 08:59 10 mg DAILY GIANCARLO Administration Metoprolol Tartrate 50 mg 11/17/22 09:00 11/17/22 08:59 Metoprolol Tartrate 50 Mg Tablet PO 11/17/23 08:59 50 mg DAILY GIANCARLO Administration Psyllium Hydrophilic Mucilloid 1 packet 11/17/22 09:00 11/17/22 08:59 Psyllium Husk 3.4 Gm Packet PO 11/17/23 08:59 1 packet DAILY GIANCARLO Administration Sodium Chloride 0 ml 11/17/22 01:36 Sodium Chloride 0.9 % 10 Ml Syringe IV-PUSH 11/17/23 01:35 PRN PRN Flush A&P - Hospitalist Assessment/Plan (1) Chest pain: (2) Hypertension: Plan Chest pain -Troponin levels remain within normal limits -Mild chest pain present intermittently worsens with palpation -Cardiology consult Hypertension -Continue home meds DVT prophylaxis: Lovenox 40 mg CODE STATUS: Full code ++++ ++++ I personally examined the patient on this day of the encounter. I reviewed the relevant history, performed the harrison elements of the physical examination, and coordinated the plan of care and I confirmed the resident's medical documentation as written. Documented By: Jhony Almonte DO [id number] Signed By: <Electronically signed by Jhony Almonte DO> 11/17/22 1711 <Electronically signed by DO DONIS Conrad> 11/17/22 1310 [facility] Work Phone: 1(562) 374-755412-29-2022 History and physical note Author Eber Kuhn [facility] November 17, 2022 5:10am Note Date/Time November 17, 2022 3:07am [facility] [address] [place] [address] Hospitalist H&P Signed Patient: Suhail Padgett MR#: [id number] : 1950 Acct:[id number] Age/Sex: 72 / M Adm Date: 2 Loc: Room: [address] [place] [address] Type: ADM IN Attending Dr: Eber Kuhn DO Copies to: MD Eber Cano DO~ HPI DATE OF EXAMINATION: 11/17/22 CHIEF COMPLAINT: Chest pain HISTORY OF PRESENT ILLNESS: This patient is a 72-year-old male presented to the emergency department with a chief complaint of chest pain described as stabbing and sharp located on theleft side of his chest for approximately 4 hours prior to his arrival. He described this as intermittent lasting 2 minutes at a time, nonradiating and seemingly unaffected by rest or changes in position. States he was sitting comfortably and not exerting himself when this came on. His initial high-sensitivity troponin level was within normal limits at 17. Brain atretic peptide level 99. He has a mild leukocytosis, predominantly neutrophilic in origin. His heart score was 4 and thought to be high risk for chest pain. He was subsequently admitted to the [facility] floor for observation and further treatment. Patient states that this time that he is still getting intermittent twinges of chest pain but nothing like the pain that brought him into the ER. Physical Examination: GENERAL APPEARANCE: Alert, up in bed AAOx3 HEENT: NCAT, MMM NECK: Neck soft w/o masses, no JVD CARDIAC: Normal S1 and S2. No S3, S4 or murmurs. LUNGS: Clear to auscultation bilaterally. no wheeze/rhonchi/rales ABDOMEN: Positive bowel sounds. Soft, nontender. No guarding or signs of an acute abdomen MUSCULOSKELETAL: No joint erythema or tenderness. EXTREMITIES: No clubbing, cyanosis or edema PSYCHIATRIC: Appropriate mood and affect Assessment and plan: 1. Chest pain rule out ACS Trend troponin levels. Work-up thus far is unremarkable however patient has significant cardiac risk factors and history that warrants observation. Consultto cardiology. Echocardiogram. 2. Hypertension Continue home metoprolol, lisinopril and hydrochlorothiazide 3. DVT prophylaxis Lovenox 40 subcu daily Review of Systems Review of Systems All other systems reviewed & are negative unless noted below or in HPI PMFSH Vaccinated for COVID-19?: Yes Medical History (Updated 11/17/22 @ 03:09 by Shayna Rodriguez RN) Depression High cholesterol Hx of cardiac arrest 2013 Hypertension Pacemaker Skin cancer Surgical History (Updated 11/17/22 @ 03:09 by Shayna Rodriguez RN) History of carotid endarterectomy History of cholecystectomy Social History Smoking Status: Never smoker Substance Use Type: None Meds Medications and Allergies Allergies No Known Allergies Allergy (Verified 11/17/22 01:38) Home Medications aspirin-caffeine 500 mg-32.5 mg tablet (Tiffany Back and Body) 500 tab PO Q6H PRN Pain 11/17/22 [History Confirmed 11/17/22] citalopram 20 mg tablet 20 mg PO DAILY 11/17/22 [History Confirmed 11/17/22] digoxin 125 mcg (0.125 mg) tablet 0.125 mg PO DAILY 11/17/22 [History Confirmed 11/17/22] finasteride 5 mg tablet 2.5 mg PO 3XW 11/17/22 [History Confirmed 11/17/22] hydrochlorothiazide 25 mg tablet 25 mg PO DAILY 11/17/22 [History Confirmed 11/17/22] lisinopril 10 mg tablet 10 mg PO DAILY 11/17/22 [History Confirmed 11/17/22] metoprolol tartrate 50 mg tablet 50 mg PO DAILY 11/17/22 [History Confirmed 11/17/22] psyllium 1 packet PO DAILY 11/17/22 [History Confirmed 11/17/22] simvastatin 40 mg tablet 40 mg PO DAILY 11/17/22 [History Confirmed 11/17/22] Exam Physical Exam Vital Signs: Temp Pulse Resp BP Pulse Ox O2 Del Method 97.4 F L 65 18 196/95 H 95 Room Air 11/17/22 01:39 11/17/22 02:42 11/17/22 02:42 11/17/22 02:42 11/17/22 02:42 11/17/22 02:42 Results Lab Results Labs: Laboratory Last Values Corrected WBC 14.5 X10E3/uL (4.1-10.5) H 11/17/22 01:41 Uncorrected WBC Count 14.5 x10E3/uL (4.1-10.5) H 11/17/22 01:41 RBC 4.73 X10E6/uL (3.90-5.60) 11/17/22 01:41 Hgb 15.0 g/dL (13.0-17.0) 11/17/22 01:41 Hct 44.2 % (38.8-50.0) 11/17/22 01:41 MCV 93.4 fl (83.5-101) 11/17/22 01:41 MCH 31.7 pg (27.5-35.2) 11/17/22 01:41 MCHC 34.0 g/dL (32.5-35.6) 11/17/22 01:41 RDW 14.5 % (12.0-14.8) 11/17/22 01:41 Plt Count 241 x10E3/uL (150-450) 11/17/22 01:41 MPV 9.0 fl (6.6-10.1) 11/17/22 01:41 Neut % (Auto) 72.9 % (.) 11/17/22 01:41 Lymph % (Auto) 14.2 % (.) 11/17/22 01:41 Dickson % (Auto) 9.4 % (.) 11/17/22 01:41 Eos % (Auto) 3.2 % (.) 11/17/22 01:41 Baso % (Auto) 0.3 % (.) 11/17/22 01:41 Nucleat RBC Rel Count 0.3 /100 WBC (0-0.5) 11/17/22 01:41 Neut # (Auto) 10.6 x10E3/uL (1.8-7.7) H 11/17/22 01:41 Lymph # (Auto) 2.1 x10E3/uL (1.00-4.8) 11/17/22 01:41 Dickson # (Auto) 1.4 x10E3/uL (0.0-0.8) H 11/17/22 01:41 Eos # (Auto) 0.5 x10E3/uL (0.0-0.45) H 11/17/22 01:41 Baso # (Auto) 0.0 x10E3/uL (0.0-0.2) 11/17/22 01:41 Monocyte Dist Width 17.83 % (0.00-20.00) 11/17/22 01:41 PT 11.0 Seconds (9.0-12.9) 11/17/22 01:41 INR 1.0 11/17/22 01:41 APTT 32.4 Seconds (25.1-36.5) 11/17/22 01:41 PHA Creatinine Clear 64.40 11/17/22 01:41 Sodium 139 mmol/L (136-146) 11/17/22 01:41 Potassium 3.7 mmol/L (3.5-5.1) 11/17/22 01:41 Chloride 100 mmol/L (95-114) 11/17/22 01:41 Carbon Dioxide 29.6 mmol/L (22.0-30.0) 11/17/22 01:41 Anion Gap 13.1 mEq/L (6.0-15.0) 11/17/22 01:41 BUN 13 mg/dL (9-23) 11/17/22 01:41 Creatinine 1.33 mg/dL (0.64-1.27) H 11/17/22 01:41 Est GFR ( Amer) > 60 mL/Min 11/17/22 01:41 Est GFR (Non-Af Amer) 53 mL/Min 11/17/22 01:41 Glucose 95 mg/dL (70-100) 11/17/22 01:41 Calcium 9.2 mg/dL (8.2-10.2) 11/17/22 01:41 Total Creatine Kinase 75 U/L (22-269) 11/17/22 01:41 CK-MB (CK-2) 2.2 ng/mL (0.6-6.3) 11/17/22 01:41 CK-MB (CK-2) Rel Index 2.9 % (0.00-2.50) H 11/17/22 01:41 Troponin I High Sens 17 pg/mL (0-20) 11/17/22 01:41 B-Natriuretic Peptide 99.0 pg/mL (5-100) 11/17/22 01:41 Documented By: Eber Kuhn DO 11/17/22 03 00 Signed By: <Electronically signed by Eber Kuhn DO> 11/17/22 0510 [facility] Work Phone: Consult note Author Scott Foy [facility] November 17, 2022 12:30pm Note Date/Time November 17, 2022 12:28pm [facility] [address] [place] [address] Cardiology Consult Note Signed Patient: Suhail Padgett MR#: [id number] : 1950 Acct:[id number] Age/Sex: 72 / M Adm Date: 2 Loc: 3T Room: [address] [place] [address] Type: ADM INOo Attending Dr: Jhony Almonte DO Copies to: DO Destiny Dumont MD Stephen M Tann, MD~ Cardiology HPI History of Present Illness Consult Date: 11/17/22 Reason for Consult: Chest pain HPI: Mr. Padgett is a 72 year old male patient of Dr. Johnson's with known history ofpacemaker implant who was admitted through the emergency department early this morning after presenting complaining of left-sided chest pain. The patient states that it pain has been going on since yesterday. He notes no unusual exertion or injury but feels like the pain is like I pulled a muscle. Its been sharp and relatively constant since yesterday afternoon. There is been no exertional component. There is no respiratory component. ECGs have shown no ischemic changes. Serial troponin has been negative x3. Patient currently feels well in his normal state of health. I am now consulted for further cardiac evaluation and management. Review of Systems Review of Systems All other systems reviewed & are negative unless noted below or in HPI PMFSH Vaccinated for COVID-19?: Yes Medical History (Updated 11/17/22 @ 11:24 by Randi Conrad DO, RES) Depression High cholesterol Hx of cardiac arrest 2013 Hypertension Pacemaker Skin cancer Surgical History (Updated 11/17/22 @ 03:09 by Shayna Rodriguez RN) History of carotid endarterectomy History of cholecystectomy Social History Smoking Status: Never smoker Substance Use Type: None Meds Medications and Allergies Allergies No Known Allergies Allergy (Verified 11/17/22 01:38) Home Medications aspirin-caffeine 500 mg-32.5 mg tablet (Tiffany Back and Body) 500 tab PO Q6H PRN Pain 11/17/22 [History Confirmed 11/17/22] citalopram 20 mg tablet 20 mg PO DAILY 11/17/22 [History Confirmed 11/17/22] digoxin 125 mcg (0.125 mg) tablet 0.125 mg PO DAILY 11/17/22 [History Confirmed 11/17/22] finasteride 5 mg tablet 2.5 mg PO 3XW 11/17/22 [History Confirmed 11/17/22] hydrochlorothiazide 25 mg tablet 25 mg PO DAILY 11/17/22 [History Confirmed 11/17/22] lisinopril 10 mg tablet 10 mg PO DAILY 11/17/22 [History Confirmed 11/17/22] metoprolol tartrate 50 mg tablet 50 mg PO DAILY 11/17/22 [History Confirmed 11/17/22] psyllium 1 packet PO DAILY 11/17/22 [History Confirmed 11/17/22] simvastatin 40 mg tablet 40 mg PO DAILY 11/17/22 [History Confirmed 11/17/22] Exam Physical Exam Vital Signs: Temp Pulse Resp BP Pulse Ox O2 Del Method 97.8 F 74 19 151/84 H 93 L Room Air 11/17/22 08:00 11/17/22 08:59 11/17/22 08:00 11/17/22 08:00 11/17/22 08:00 11/17/22 08:00 Const General: cooperative, healthy appearing, comfortable and no acute distress Nutritional Appearance: overweight Orientation: alert, awake and oriented x3 HEENT Head: normocephalic and atraumatic Face and sinus: face symmetric Mouth: moist mucous membranes Teeth and gingiva: fair dentition Eyes Conjunctivae: conjunctivae normal Sclera: sclerae normal Pupils: PERRL and accommodation normal EOM: EOM intact bilaterally Direct ophthalmoscopy: no photophobia Neck Neck: no lymphadenopathy and supple Neck mass: No Thyroid: thyroid normal Lymphatic: no lymphadenopathy noted Chest Chest palpation & inspection: normal inspection of the chest and localized rib tenderness with anteroposterior compression Resp Effort & Inspection: normal respiratory effort, able to speak in complete sentences and symmetric chest movement Auscultation: clear to auscultation bilaterally Cardio Jugular venous pressure: no JVD Palpation: normal PMI Rate: regular rate Rhythm: regular rhythm Heart Sounds: S1 normal, S2 normal and gallop S4 gallop Pulses: radial pulses present, posterior tibial pulses present and dorsalis pedis present GI Inspection: normal to inspection Palpation: soft and no hepatosplenomegaly Skin General: no rashes or lesions noted Trauma: no lacerations or abrasions Wounds: no wounds Neuro General: patient alert, patient awake, patient oriented x3, moves all extremities and no focal motor deficits Cranial Nerves: CN's II-XII intact bilaterally Cognition: normal cognition Speech: speech normal Motor: muscle tone normal throughout Sensory Exam: no sensory deficits noted Extrem General: no clubbing, cyanosis or edema Psych Appearance: grossly normal Mental Status: mental status grossly normal Mood: congruent mood Affect: normal affect Speech and Movement: speech and movement normal Attitude: cooperative Thought Process: normal Thought Content: normal Insight: insight good Judgment: judgment good DEBBY Risk Score DEBBY Risk Score Predictor Historical: Age > 65 Years Old and ASA use in Past 7 Days Score Risk Score (0-7): 2 Results Labs 11/17/22 01:41 11/17/22 01:41 Lab results: Cardiac Enzymes 11/17/22 11/17/22 11/17/22 Range/Units 01:41 01:41 04:52 Total Creatine Kinase 75 110 (22-269) U/L CK-MB (CK-2) 2.2 2.1 (0.6-6.3) ng/mL CK-MB (CK-2) Rel Index 2.9 H 1.9 (0.00-2.50) % B-Natriuretic Peptide 99.0 (5-100) pg/mL 11/17/22 Range/Units 10:25 Total Creatine Kinase 69 (22-269) U/L CK-MB (CK-2) 2.1 (0.6-6.3) ng/mL CK-MB (CK-2) Rel Index 3.0 H (0.00-2.50) % B-Natriuretic Peptide (5-100) pg/mL CBC 11/17/22 Range/Units 01:41 RBC 4.73 (3.90-5.60) X10E6/uL Hgb 15.0 (13.0-17.0) g/dL Hct 44.2 (38.8-50.0) % Plt Count 241 (150-450) x10E3/uL Neut # (Auto) 10.6 H (1.8-7.7) x10E3/uL Lymph # (Auto) 2.1 (1.00-4.8) x10E3/uL Dickson # (Auto) 1.4 H (0.0-0.8) x10E3/uL Eos # (Auto) 0.5 H (0.0-0.45) x10E3/uL Baso # (Auto) 0.0 (0.0-0.2) x10E3/uL Comprehensive Metabolic Panel 11/17/22 Range/Units 01:41 Sodium 139 (136-146) mmol/L Potassium 3.7 (3.5-5.1) mmol/L Chloride 100 (95-114) mmol/L Carbon Dioxide 29.6 (22.0-30.0) mmol/L BUN 13 (9-23) mg/dL Creatinine 1.33 H (0.64-1.27) mg/dL Glucose 95 (70-100) mg/dL Calcium 9.2 (8.2-10.2) mg/dL Intake and Output 11/16/22 11/17/22 11/17/22 23:59 07:59 15:59 Intake Total 250 / 250 Balance 250 / 250 Intake: Oral 250 / 250 Other: # Unmeasured Voids 1 Weight 112.6 kg Date of Last Bowel Movement 11/16/22 11/16/22 Patient Weight 11/17/22 23:59 Weight 112.6 kg Lab 11/17/22 01:41 PT 11.0 INR 1.0 APTT 32.4 EKG Interpretations EKG Attestation EKG: I reviewed this ECG and interpreted as documented below: EKG results cardiology: no acute changes Dysrhythmias Sinus rhythms and dysrhythmias: sinus rhythm Blocks, axis, hypertrophy, ST abn Repolarization changes or abnormalities: nonspecific abnormality, ST segment, and/or T wave TN, pacemaker, normal Pacemaker: ventricular pacing w/capture (except when refractory) Normal tracing: no change compared to previous tracing A&P - Cardiology (1) Chest pain: Assessment/Problem Details: Atypical chest pain. Appears musculoskeletal. Low DEBBY risk. Risk stratification studies including serial ECGs and troponins all negative/low risk Plan: 1. Discharge to home today 2. Short course of oral anti-inflammatories 3. Patient can follow-up as scheduled in December with Dr. Johnson and at that point outpatient stress testing could be considered. Code(s): R07.9 - Chest pain, unspecified Plan Thank you very much for this kind consultation. Documented By: Scott Foy MD 11/17/22 1224 Signed By: <Electronically signed by Scott Foy MD> 11/17/22 1230 [facility] Work Phone: Discharge summary Author Jhony Almonte [facility] November 17, 2022 5:14pm Note Date/Time November 17, 2022 12:52pm [facility] [address] [place] [address] Discharge Summary Signed Patient: Suhail Padgett MR#: [id number] : 1950 Acct:[id number] Age/Sex: 72 / M Adm Date: 2 Loc: Room: [address] [place] [address]: Jhony Almonte DO Copies to: Randi Conrad DO, RES DO Destiny Dumont MD~ Providers Date of Discharge: 11/17/22 Discharging Provider: Jhony Almonte Primary Care Provider: Destiny Gardner Consults: 11/17/22 05:10 Consult to Cardiology Routine Discharge Diagnosis (1) Chest wall pain: (2) Hypertension: (3) Hx of cardiac arrest: (4) Pacemaker: Final Diagnosis Final Discharge Diagnosis: Atypical, musculoskeletal, reproducible rib cage and inter-costal muscle relatedchest pain History of cardiac arrest in the past. Presence of permanent pacemaker in place, very near to the place for the musculoskeletal intercostal muscle tissue tenderness pain was located. Summary Hospital Course Hospital course: Patient presented to the emergency department with chest pain described as sharpand stabbing localized to the left-sided chest for approximately 4 hours prior to arrival. Chest pain subsided throughout the hospital stay. Serial troponinsx3 were all within normal limits BNP is 99. Cardiology was consulted and reviewed EKG, troponin. Chest pain was determined to be most likely musculoskeletal in nature. Low DEBBY risk. Patient cleared to be discharged on a short course of oral anti-inflammatory medication. Follow-up as scheduled in December with Dr. Johnson outpatient for possible stress testing. Condition Condition at Discharge: Stable Status at Discharge Functional status at discharge: independent ambulation Overall status at discharge: patient is back to baseline Time Spent with Patient Time spent providing/coordinating discharge services (# min): 35 Diagnostic Studies Completed and Pending Studies Pending studies at discharge: 11/17/22 18:34 Troponin I High Sensitivity [CHEM] Timed Creatine Kinase [CHEM] Routine Creatinine Kinase MB [CHEM] Routine 11/18/22 02:34 Troponin I High Sensitivity [CHEM] Timed Creatine Kinase [CHEM] Routine Creatinine Kinase MB [CHEM] Routine Labs on day of discharge: 11/17/22 10:25: Total Creatine Kinase 69, CK-MB (CK-2) 2.1, CK-MB (CK-2) Rel Index 3.0 H, Troponin I High Sens 14 11/17/22 04:52: Total Creatine Kinase 110, CK-MB (CK-2) 2.1, CK-MB (CK-2) Rel Index 1.9, Troponin I High Sens 15 11/17/22 01:41: B-Natriuretic Peptide 99.0 11/17/22 01:41: Total Creatine Kinase 75, CK-MB (CK-2) 2.2, CK-MB (CK-2) Rel Index 2.9 H, Troponin I High Sens 17 11/17/22 01:41: PHA Creatinine Clear 64.40, Sodium 139, Potassium 3.7, Chloride 100, Carbon Dioxide 29.6, Anion Gap 13.1, BUN 13, Creatinine 1.33 H, Est GFR ( Amer) > 60, Est GFR (Non-Af Amer) 53, Glucose 95, Calcium 9.2 11/17/22 01:41: PT 11.0, INR 1.0, APTT 32.4 11/17/22 01:41: Corrected WBC 14.5 H, Uncorrected WBC Count 14.5 H, RBC 4.73, Hgb 15.0, Hct 44.2, MCV 93.4, MCH 31.7, MCHC 34.0, RDW 14.5, Plt Count 241, MPV 9.0, Neut % (Auto) 72.9, Lymph % (Auto) 14.2, Dickson % (Auto) 9.4, Eos % (Auto) 3.2, Baso % (Auto) 0.3, Nucleat RBC Rel Count 0.3, Neut # (Auto) 10.6 H, Lymph # (Auto) 2.1, Dickson # (Auto) 1.4 H, Eos # (Auto) 0.5 H, Baso # (Auto) 0.0, Monocyte Dist Width 17.83 Exam Physical Exam Vital Signs: Temp Pulse Resp BP Pulse Ox O2 Del Method 97.8 F 74 19 151/84 H 93 L Room Air 11/17/22 08:00 11/17/22 08:59 11/17/22 08:00 11/17/22 08:00 11/17/22 08:00 11/17/22 08:00 Narrative: GENERAL APPEARANCE: Alert, up in bed AAOx3 NECK: Neck soft w/o masses, no JVD CARDIAC: Normal S1 and S2. No S3, S4 or murmurs. Mild tenderness reproduced on palpation of the left chest LUNGS: Clear to auscultation bilaterally. no wheeze/rhonchi/rales ABDOMEN: Positive bowel sounds. Soft, nontender. No guarding or signs of an acute abdomen MUSCULOSKELETAL: No joint erythema or tenderness. EXTREMITIES: No clubbing, cyanosis or edema PSYCHIATRIC: Appropriate mood and affect ++++ ++++ I personally examined the patient on this day of the encounter. I reviewed the relevant history, performed the harrison elements of the physical examination, and coordinated the plan of care and I confirmed the resident's medical documentation as written. Patient does have exquisitely tender muscles on the rib cage on the left just a centimeter below his pacemaker. The pacemaker pocket itself is entirely pain- free and normal to examination. He does not have sternum pain. He does not have pain right at the costochondral junctions. But it is a little bit more to the left of that. He does not have any pain in the muscles on his spine on the back. Patient was described to take NSAIDs for few days and also consider topical treatment such as Voltaren gel or Aspercreme to this area and ice and heat to reduce the muscle pain. Discharge Plan Discharge Plan Patient Disposition: Home Activity: No Activity Restriction Diet: Regular Comment: Further refills per pcp Prescriptions: New ibuprofen 600 mg tablet 600 mg PO QID 5 Days Qty: 20 0RF Rx Instructions: further refills per pcp Continued simvastatin 40 mg tablet 40 mg PO DAILY citalopram 20 mg tablet 20 mg PO DAILY lisinopril 10 mg tablet 10 mg PO DAILY metoprolol tartrate 50 mg tablet 50 mg PO DAILY hydrochlorothiazide 25 mg tablet 25 mg PO DAILY Patient Comments: TAKE 1 TABLET BY MOUTH ONCE DAILY digoxin 125 mcg (0.125 mg) tablet 0.125 mg PO DAILY Patient Comments: TAKE 1 TABLET BY MOUTH ONCE DAILY Tiffany Back and Body 500-32.5 mg Tablet 500 tab PO Q6H PRN (Reason: Pain) finasteride 5 mg Tablet 2.5 mg PO 3XW psyllium Packet 1 packet PO DAILY Follow Up: Cory Johnson MD [Active Staff] - 01/13/23 3:30 pm (Previously scheduled appointment. ) Destiny Gardner MD [Primary Care Provider] - (Office was currently closed. Please call office for a follow-up appointment within 7-10 days. ) Documented By: Jhony Almonte DO [id number] Signed By: <Electronically signed by Jhony Almonte DO> 11/17/22 1714 <Electronically signed by DO RES Randi Conrad> 11/17/22 1311 [facility] Work Phone: Evaluation noteNo assessment information available [facility] Work Phone: Evaluation note* Diagnosis Onset Date Resolution Status Chest pain acute [facility] Work Phone: Evaluation note* Diagnosis Onset Date Resolution Status Chest pain acute Hypertension acute [facility] Work Phone: Evaluation note* Diagnosis Arteriosclerosis of coronary artery- Primary Essential hypertension Unspecified essential hypertension Mixed hyperlipidemia ICD (implantable cardioverter-defibrillator), single, in situ Ventricular fibrillation (CMS/HCC) Ventricular fibrillation Status post angioplasty Postsurgical percutaneous transluminal coronary angioplasty status documented in this encounter [facility] Work Phone: Evaluation noteNo InformationNort [employer] Other History and physical note Author Eber Kuhn [facility] November 17, 2022 5:10am Note Date/Time November 17, 2022 3:07am [facility] [address] [place] [address] Hospitalist H&P Signed Patient: Suhail Padgett MR#: [id number] : 1950 Acct:[id number] Age/Sex: 72 / M Adm Date: 2 Loc: Room: [address] [place] [address] Type: ADM IN Attending Dr: Eber Kuhn DO Copies to: MD Eber Cano, ~ HPI DATE OF EXAMINATION: 11/17/22 CHIEF COMPLAINT: Chest pain HISTORY OF PRESENT ILLNESS: This patient is a 72-year-old male presented to the emergency department with a chief complaint of chest pain described as stabbing and sharp located on theleft side of his chest for approximately 4 hours prior to his arrival. He described this as intermittent lasting 2 minutes at a time, nonradiating and seemingly unaffected by rest or changes in position. States he was sitting comfortably and not exerting himself when this came on. His initial high-sensitivity troponin level was within normal limits at 17. Brain atretic peptide level 99. He has a mild leukocytosis, predominantly neutrophilic in origin. His heart score was 4 and thought to be high risk for chest pain. He was subsequently admitted to the [facility] floor for observation and further treatment. Patient states that this time that he is still getting intermittent twinges of chest pain but nothing like the pain that brought him into the ER. Physical Examination: GENERAL APPEARANCE: Alert, up in bed AAOx3 HEENT: NCAT, MMM NECK: Neck soft w/o masses, no JVD CARDIAC: Normal S1 and S2. No S3, S4 or murmurs. LUNGS: Clear to auscultation bilaterally. no wheeze/rhonchi/rales ABDOMEN: Positive bowel sounds. Soft, nontender. No guarding or signs of an acute abdomen MUSCULOSKELETAL: No joint erythema or tenderness. EXTREMITIES: No clubbing, cyanosis or edema PSYCHIATRIC: Appropriate mood and affect Assessment and plan: 1. Chest pain rule out ACS Trend troponin levels. Work-up thus far is unremarkable however patient has significant cardiac risk factors and history that warrants observation. Consultto cardiology. Echocardiogram. 2. Hypertension Continue home metoprolol, lisinopril and hydrochlorothiazide 3. DVT prophylaxis Lovenox 40 subcu daily Review of Systems Review of Systems All other systems reviewed & are negative unless noted below or in HPI PMFSH Vaccinated for COVID-19?: Yes Medical History (Updated 11/17/22 @ 03:09 by Shayna Rodriguez RN) Depression High cholesterol Hx of cardiac arrest 2013 Hypertension Pacemaker Skin cancer Surgical History (Updated 11/17/22 @ 03:09 by Shayna Rodriguez RN) History of carotid endarterectomy History of cholecystectomy Social History Smoking Status: Never smoker Substance Use Type: None Meds Medications and Allergies Allergies No Known Allergies Allergy (Verified 11/17/22 01:38) Home Medications aspirin-caffeine 500 mg-32.5 mg tablet (Tiffany Back and Body) 500 tab PO Q6H PRN Pain 11/17/22 [History Confirmed 11/17/22] citalopram 20 mg tablet 20 mg PO DAILY 11/17/22 [History Confirmed 11/17/22] digoxin 125 mcg (0.125 mg) tablet 0.125 mg PO DAILY 11/17/22 [History Confirmed 11/17/22] finasteride 5 mg tablet 2.5 mg PO 3XW 11/17/22 [History Confirmed 11/17/22] hydrochlorothiazide 25 mg tablet 25 mg PO DAILY 11/17/22 [History Confirmed 11/17/22] lisinopril 10 mg tablet 10 mg PO DAILY 11/17/22 [History Confirmed 11/17/22] metoprolol tartrate 50 mg tablet 50 mg PO DAILY 11/17/22 [History Confirmed 11/17/22] psyllium 1 packet PO DAILY 11/17/22 [History Confirmed 11/17/22] simvastatin 40 mg tablet 40 mg PO DAILY 11/17/22 [History Confirmed 11/17/22] Exam Physical Exam Vital Signs: Temp Pulse Resp BP Pulse Ox O2 Del Method 97.4 F L 65 18 196/95 H 95 Room Air 11/17/22 01:39 11/17/22 02:42 11/17/22 02:42 11/17/22 02:42 11/17/22 02:42 11/17/22 02:42 Results Lab Results Labs: Laboratory Last Values Corrected WBC 14.5 X10E3/uL (4.1-10.5) H 11/17/22 01:41 Uncorrected WBC Count 14.5 x10E3/uL (4.1-10.5) H 11/17/22 01:41 RBC 4.73 X10E6/uL (3.90-5.60) 11/17/22 01:41 Hgb 15.0 g/dL (13.0-17.0) 11/17/22 01:41 Hct 44.2 % (38.8-50.0) 11/17/22 01:41 MCV 93.4 fl (83.5-101) 11/17/22 01:41 MCH 31.7 pg (27.5-35.2) 11/17/22 01:41 MCHC 34.0 g/dL (32.5-35.6) 11/17/22 01:41 RDW 14.5 % (12.0-14.8) 11/17/22 01:41 Plt Count 241 x10E3/uL (150-450) 11/17/22 01:41 MPV 9.0 fl (6.6-10.1) 11/17/22 01:41 Neut % (Auto) 72.9 % (.) 11/17/22 01:41 Lymph % (Auto) 14.2 % (.) 11/17/22 01:41 Dickson % (Auto) 9.4 % (.) 11/17/22 01:41 Eos % (Auto) 3.2 % (.) 11/17/22 01:41 Baso % (Auto) 0.3 % (.) 11/17/22 01:41 Nucleat RBC Rel Count 0.3 /100 WBC (0-0.5) 11/17/22 01:41 Neut # (Auto) 10.6 x10E3/uL (1.8-7.7) H 11/17/22 01:41 Lymph # (Auto) 2.1 x10E3/uL (1.00-4.8) 11/17/22 01:41 Dickson # (Auto) 1.4 x10E3/uL (0.0-0.8) H 11/17/22 01:41 Eos # (Auto) 0.5 x10E3/uL (0.0-0.45) H 11/17/22 01:41 Baso # (Auto) 0.0 x10E3/uL (0.0-0.2) 11/17/22 01:41 Monocyte Dist Width 17.83 % (0.00-20.00) 11/17/22 01:41 PT 11.0 Seconds (9.0-12.9) 11/17/22 01:41 INR 1.0 11/17/22 01:41 APTT 32.4 Seconds (25.1-36.5) 11/17/22 01:41 PHA Creatinine Clear 64.40 11/17/22 01:41 Sodium 139 mmol/L (136-146) 11/17/22 01:41 Potassium 3.7 mmol/L (3.5-5.1) 11/17/22 01:41 Chloride 100 mmol/L (95-114) 11/17/22 01:41 Carbon Dioxide 29.6 mmol/L (22.0-30.0) 11/17/22 01:41 Anion Gap 13.1 mEq/L (6.0-15.0) 11/17/22 01:41 BUN 13 mg/dL (9-23) 11/17/22 01:41 Creatinine 1.33 mg/dL (0.64-1.27) H 11/17/22 01:41 Est GFR ( Amer) > 60 mL/Min 11/17/22 01:41 Est GFR (Non-Af Amer) 53 mL/Min 11/17/22 01:41 Glucose 95 mg/dL (70-100) 11/17/22 01:41 Calcium 9.2 mg/dL (8.2-10.2) 11/17/22 01:41 Total Creatine Kinase 75 U/L (22-269) 11/17/22 01:41 CK-MB (CK-2) 2.2 ng/mL (0.6-6.3) 11/17/22 01:41 CK-MB (CK-2) Rel Index 2.9 % (0.00-2.50) H 11/17/22 01:41 Troponin I High Sens 17 pg/mL (0-20) 11/17/22 01:41 B-Natriuretic Peptide 99.0 pg/mL (5-100) 11/17/22 01:41 Documented By: Eber Kuhn DO 11/17/22 03 00 Signed By: <Electronically signed by Eber Kuhn DO> 11/17/22 0510 [facility] Work Phone: Hisqdgd general Narrative - Reported* Type Description Date Medical History HTN Medical History Hyperlipidemia Surgical History defibrillator placement Surgical History gallbladder Surgical History Vein stripping [employer] Other History of Present illness NarrativePatient returns in follow-up of problems as noted. He is doing well. I cannot elicit any angina CHF arrhythmia or neurologic symptomatology. ICD device checks are discussed and reviewed and they are satisfactory. He has none of the symptoms of coronary disease to proceed his original diagnosis and stenting. He is tolerating treatment for his risk factors which include hypertension and hyperlipidemia. He is otherwise well and has no new symptoms or complaints. Body mass index is noted in the merits of diet lifestyle modification exercise and weight loss are reviewed.-[facility] 250 DO Work Phone: History of Present illness NarrativePatient returns in follow-up of problems as noted. He is doing well. I cannot elicit any angina CHF arrhythmia or neurologic symptomatology. ICD device checks are discussed and reviewed and they are satisfactory. He has none of the symptoms of coronary disease to proceed his original diagnosis and stenting. He is tolerating treatment for his risk factors which include hypertension and hyperlipidemia. He is otherwise well and has no new symptoms or complaints. Body mass index is noted in the merits of diet lifestyle modification exercise and weight loss are reviewed.[facility] DO Work Phone: History of Present illness Narrative* Patient returns in follow-up of problems as noted. In the interim he is done relatively well and hedenies any anginal symptomatology associated with his coronary disease. Vascular surgery is been following his carotid disease and we will defer to them. Blood pressure and lipids appear to be adequately controlled and recent defibrillator interrogations are reviewed with him and they demonstrate sa tisfactory device performance and no arrhythmia breakthrough. * He does, though, complained of dyspnea that he states is new and incrementally worse over time. He has no findings of edema or rales nor JVD but nonetheless were concerned regarding a change in ejection fraction because of this an echocardiogram will be performed and he will follow-up thereafter. He was encouraged to call if symptoms arise or worsen in the interim. [facility] 600 DO Work Phone: History of Present illness Narrative* Patient returns in follow-up of problems as noted. In the interim he is done relatively well and hedenies any anginal symptomatology associated with his coronary disease. Vascular surgery is been following his carotid disease and we will defer to them. Blood pressure and lipids appear to be adequately controlled and recent defibrillator interrogations are reviewed with him and they demonstrate sa tisfactory device performance and no arrhythmia breakthrough. * He does, though, complained of dyspnea that he states is new and incrementally worse over time. He has no findings of edema or rales nor JVD but nonetheless were concerned regarding a change in ejection fraction because of this an echocardiogram will be performed and he will follow-up thereafter. He was encouraged to call if symptoms arise or worsen in the interim. [facility] Work Phone: History of Present illness Narrative* Patient returns in follow-up of problems as noted. In the interim he is done relatively well and hedenies any anginal symptomatology associated with his coronary disease. Vascular surgery is been following his carotid disease and we will defer to them. Blood pressure and lipids appear to be adequately controlled and recent defibrillator interrogations are reviewed with him and they demonstrate sa tisfactory device performance and no arrhythmia breakthrough. * He does, though, complained of dyspnea that he states is new and incrementally worse over time. He has no findings of edema or rales nor JVD but nonetheless were concerned regarding a change in ejection fraction because of this an echocardiogram will be performed and he will follow-up thereafter. He was encouraged to call if symptoms arise or worsen in the interim. [facility] Work Phone: History of Present illness NarrativePatient returns in follow-up of previous complaints of shortness of breath. At the last encounter plan was an outpatient echocardiogram but about a week after the office visit he went to the hospitaland was admitted. His evaluation demonstrated no EKG changes, normal troponins, normal B natrureticpeptide and a normal echocardiogram. This was reviewed with him and I told him that I seriously doubt any active heart disease. He had no manifestations of ischemia nor heart failure and I believe his previous complaints of shortness of breath are probably on the basis of COPD and/or age-related deconditioning. This was discussed and explained in great detail and he is excepting of the conclusions and agrees. The present time it appears no adjustments in therapy are necessary. Once again we reviewed with him the symptoms that preceded his original diagnosis of coronary disease and carotid disease and he is having none of those symptoms and consequently we believe he is doing well. Defibrillator checks are reviewed with him and the device function is adequate and appropriate and there havebeen no breakthroughs of malignant ventricular tachyarrhythmias. His blood pressure and cholesterolare well controlled and these medicines do not require adjustment. As before, though, we did advocate the merits of diet exercise and weight loss.[facility] 250 DO Work Phone: Progress note Author Jhony Almonte [facility] November 17, 2022 5:11pm Note Date/Time November 17, 2022 11:35am [facility] [address] [place], [place] [id number] Hospitalist Progress Note Signed Patient: Suhail Padgett MR#: [id number] : 1950 Acct:[id number] Age/Sex: 72 / M Adm Date: 2 Loc: 3T Room: [address] [place] [address] Type: DIS INOo Attending Dr: Jhony Almonte DO Copies to: ~ Date of Service: 11/17/2022 Subjective Subjective Narrative: Patient was seen and examined resting comfortably in bed today. He initially presented for stabbing sharp chest pain located in the left-sided chest without radiation. Much improved however does seem to be still mildly present. This pain is nonradiating or affected by changes in position. However does state that can get worse on palpation. Troponins x3 all within normal limits starting at 17, 15, 14. BNP 99. Does have mildly elevated WBC at 14.5. Patient denies any other complaints at this time including headache, dizziness, shortness of breath, nausea, vomiting or abdominal pain. Exam Physical Exam Vital Signs: Temp Pulse Resp BP Pulse Ox O2 Del Method 97.8 F 74 19 151/84 H 93 L Room Air 11/17/22 08:00 11/17/22 08:59 11/17/22 08:00 11/17/22 08:00 11/17/22 08:00 11/17/22 08:00 Narrative: GENERAL APPEARANCE: Alert, up in bed AAOx3 NECK: Neck soft w/o masses, no JVD CARDIAC: Normal S1 and S2. No S3, S4 or murmurs. Mild tenderness reproduced on palpation of the left chest LUNGS: Clear to auscultation bilaterally. no wheeze/rhonchi/rales ABDOMEN: Positive bowel sounds. Soft, nontender. No guarding or signs of an acute abdomen MUSCULOSKELETAL: No joint erythema or tenderness. EXTREMITIES: No clubbing, cyanosis or edema PSYCHIATRIC: Appropriate mood and affect Objective Lab Results 11/17/22 01:41 11/17/22 01:41 Meds Allergies and Active Meds Allergies No Known Allergies Allergy (Verified 11/17/22 01:38) Active Meds: Active Medications Generic Name Dose Route Start Last Admin Trade Name Freq PRN Reason Stop Dose Admin Atorvastatin Calcium 20 mg 11/17/22 22:00 Atorvastatin 20 Mg Tablet PO 11/17/23 21:59 QHS GIANCARLO Citalopram Hydrobromide 20 mg 11/17/22 09:00 11/17/22 08:59 Citalopram 20 Mg Tablet PO 11/17/23 08:59 20 mg DAILY GIANCARLO Administration Digoxin 125 mcg 11/17/22 09:00 11/17/22 08:59 Digoxin 125 Mcg Tablet PO 11/17/23 08:59 125 mcg DAILY GIANCARLO Administration Enoxaparin Sodium 40 mg 11/17/22 10:00 11/17/22 09:00 Enoxaparin 40 Mg/0.4 Ml Syringe SUBCUT 11/17/23 09:59 40 mg DAILY@10 GIANCARLO Administration Finasteride 2.5 mg 11/18/22 09:00 Finasteride 5 Mg Tablet PO 11/18/23 08:59 [id number]@[id number] GIANCARLO Hydrochlorothiazide 25 mg 11/17/22 09:00 11/17/22 08:59 Hydrochlorothiazide 25 Mg Tablet PO 11/17/23 08:59 25 mg DAILY GIANCARLO Administration Lisinopril 10 mg 11/17/22 09:00 11/17/22 08:59 Lisinopril 10 Mg Tablet PO 11/17/23 08:59 10 mg DAILY GIANCARLO Administration Metoprolol Tartrate 50 mg 11/17/22 09:00 11/17/22 08:59 Metoprolol Tartrate 50 Mg Tablet PO 11/17/23 08:59 50 mg DAILY GIANCARLO Administration Psyllium Hydrophilic Mucilloid 1 packet 11/17/22 09:00 11/17/22 08:59 Psyllium Husk 3.4 Gm Packet PO 11/17/23 08:59 1 packet DAILY GIANCARLO Administration Sodium Chloride 0 ml 11/17/22 01:36 Sodium Chloride 0.9 % 10 Ml Syringe IV-PUSH 11/17/23 01:35 PRN PRN Flush A&P - Hospitalist Assessment/Plan (1) Chest pain: (2) Hypertension: Plan Chest pain -Troponin levels remain within normal limits -Mild chest pain present intermittently worsens with palpation -Cardiology consult Hypertension -Continue home meds DVT prophylaxis: Lovenox 40 mg CODE STATUS: Full code ++++ ++++ I personally examined the patient on this day of the encounter. I reviewed the relevant history, performed the harrison elements of the physical examination, and coordinated the plan of care and I confirmed the resident's medical documentation as written. Documented By: Jhony Almonte DO [id number] Signed By: <Electronically signed by Jhony Almonte, > 11/17/22 1711 <Electronically signed by DO RES Randi Conrad> 11/17/22 1310 [facility] Work Phone: Reason for referral (narrative)* Consultation (Routine) - Authorized Specialty Diagnoses / Procedures Referred By Dylan t Referred To Contact Cardiology Diagnoses Arteriosclerosis of coronary artery Essential hypertension ICD (implantable cardioverter-defibrillator), single, in situ Ventricular fibrillation (CMS/HCC) Procedures Follow Up In Cardiology Cory Johnson MD [facility] [address], [address] [address] Cory Johnson MD [facility] [address], [address] [address] Referral ID Status Reason Start Date Expiration Date V isits Requested Visits Authorized [id number] Authorized 10/06/2023 10/05/2024 1 1 [facility] Work Phone: Summary Purpose Family History No Family History Records FoundUnknown Family Member Name Dates Details Family history of arterioscl erotic cardiovascular disease: Father(V17.49, Z82.49) Status:Active Unknown Family Member Name Dates Details Family history of arterioscl erotic cardiovascular disease: Father(V17.49, Z82.49) Status:Active Unknown Family Member Name Dates Details Family history of arterioscl erotic cardiovascular disease: Father(V17.49, Z82.49) Status:Active Unknown Family Member Name Dates Details Family history of arterioscl erotic cardiovascular disease: Father(V17.49, Z82.49) Status:Active Unknown Family Member Name Dates Details Family history of arterioscl erotic cardiovascular disease: Father(V17.49, Z82.49) Status:Active Unknown Family Member Name Dates Details Family history of arterioscl erotic cardiovascular disease: Father(V17.49, Z82.49) Status:Active Unknown Family Member Name Dates Details Family history of arterioscl erotic cardiovascular disease: Father(V17.49, Z82.49) Status:Active Unknown Family Member Name Dates Details Family history of arterioscl erotic cardiovascular disease: Father(V17.49, Z82.49) Status:Active Unknown Family Member Name Dates Details Family history of arterioscl erotic cardiovascular disease: Father(V17.49, Z82.49) Status:Active Unknown Family Member Name Dates Details Family history of arterioscl erotic cardiovascular disease: Father(V17.49, Z82.49) Status:Active Unknown Family Member Name Dates Details Family history of arterioscl erotic cardiovascular disease: Father(V17.49, Z82.49) Status:Active Unknown Family Member Name Dates Details Family history of arterioscl erotic cardiovascular disease: Father(V17.49, Z82.49) Status:Active Unknown Family Member Name Dates Details Family history of arterioscl erotic cardiovascular disease: Father(V17.49, Z82.49) Status:Active Advance Directives No Advanced Directives Records Found Advance Directive Response Recorded Date/ Time Advance Directives No September 2:03pm Advance Directive Response Recorded Date/ Time Advance Directives No September 1:03pm Chief Complaint SUHAIL PADGETT is being seen for an annual follow-up of.SUHAIL PADGETT is being seen for an annual follow-up of.SUHAIL PADGETT is being seen for an annual follow-up of.SUHAIL PADGETT is being seen for an annual follow-up of.SUHAIL PADGETT is being seen for an annual follow-up of.ECHO RESULTS. Chief Complaint and Reason for Visit Chief Complaint VT Chief Complaint VT Chest Pain Reason for Visit Chest pain Chief Complaint VT Chest Pain Reason for Visit Chest pain Hypertension Chief Complaint Chest Pain VT Reason for Visit Chest pain Hypertension Additional Source Comments (unrecognized sect ion and content) No Status Records FoundNo Status Records FoundNo Status Records FoundNo Status Records FoundNo Status Records FoundNo Status Records FoundNo Status Records FoundNo Status Records Found INFORMATION SOURCE (unrecogn ized section and content) DATE CREATED AUTHOR 06/12/2020 [facility] DATE CREATED AUTHOR AUTHOR'S ORGANIZ ATION 03/05/2021 [facility] DATE CREATED AUTHOR AUTHOR'S ORGANIZ ATION 11/17/2022 [facility] DATE CREATED AUTHOR AUTHOR'S ORGANIZ ATION 01/14/2023 [facility] DATE CREATED AUTHOR AUTHOR'S ORGANIZ ATION 08/24/2023 [facility] DATE CREATED AUTHOR AUTHOR'S ORGANIZ ATION 10/09/2023 [facility] DATE CREATED AUTHOR AUTHOR'S ORGANIZ ATION 12/09/2023 [facility] DATE CREATED AUTHOR AUTHOR'S ORGANIZ ATION 01/21/2024 [facility] [employer] Care Teams (unrecognized sec tion and content) Team Status: Active Member Role Status Dates Destiny Gardner MD Primary Care Provider Active Team Status: Inactive Member Role Status Dates Destiny Gardner MD Primary Care Provider Active Cory Johnson MD Attending Provider Active Team Status: Active Member Role Status Dates Destiny Gardner MD Primary Care Provider Active Abhijit Lopez , DO Emergency Provider Active Eber Kuhn , DO Admit Provider, Attending Provider Active Team Status: Inactive Member Role Status Dates Destiny Gardner MD Primary Care Provider Active Abhijit Lopez , DO Emergency Provider Active Eber Kuhn , DO Admit Provider Active Jhony Almonte , DO Attending Provider Active Brooklyn Luu RN Other Provider Active Jimmy Esparza , DO Other Provider Active Lashay Chen MD Other Provider Active Cory Johnson MD Other Provider Active Jenna Boone MD Other Provider Active Anshu Lee MD Other Provider Active Lanette Mclean APRN Other Provider Active Luz Marina Pfeiffer MD Other Provider Active Vladimir Steen MD Other Provider Active Erin Schneider MD Other Provider Active Yamila Arias [facility]- Other Provider Active Joleen Syed MD Other Provider Active [employer] Relationship Specialty Start Date End Date Destiny Gardner MD [address] [place] [address] [place] [address] PCP - General 06/12/19 Goals (unrecognized section and content) Goals may be documented in a n alternate sectionGoals may be documented in an alternate sectionGoals may be documented in an alternate sectionGoals may be documented in an alternate sectionGoals may be documented in an alternate sectionNo InformationNo InformationGoals may be documented in an alternate section Reason for Visit (unrecogniz ed section and content) Reason Comments Follow-up 9m FOR RECORDS PERTAINING TO PATIENTS WHO ARE OR HAVE BEEN ENROLLED IN A CHEMICAL DEPENDENCY/SUBSTANCEABUSE PROGRAM, SOME INFORMATION MAY BE OMITTED. This clinical summary was aggregated from multiple sources. Caution should be exercised in using it in the provision of clinical care. This summary normalizes information from multiple sources, and as a consequence, information in this document may materially change the coding, format and clinical context of patient data. In addition, data may be omitted in some cases. CLINICAL DECISIONS SHOULD BE BASED ON THE PRIMARY CLINICAL RECORDS. [employer] [facility]. provides no warranty or guarantee of the accuracy or completeness of information in this document.
--- NOTE | 2024-01-22 12:19 | XR_ITS ---
The [address] [address] Patient Name: SUHAIL PADGETT MRN: [id number] date: 1950 Sex: M Assigned Patient Location: LAB Current Patient Location: LAB Accession/Order Number: [id number] Exam Date: 01/22/2024 12:25 Report Date: 01/22/2024 13:18 At the request of: VALENTIN GARDNER Procedure: XR chest 2V EXAM: XR chest 2V HISTORY: dyspnea on exertion COMPARISON: None. TECHNIQUE: PA and lateral views of the chest. FINDINGS: The cardiomediastinal silhouette is normal. Left-sided cardiac pacemaker. No focal consolidation is identified. There is no pneumothorax. No pleural effusion is noted. The osseous structures are intact. XR/XR chest 2V IMPRESSION: No acute cardiopulmonary process. Electronically authenticated by: THOMPSON CAMPBELL Date: 01/22/2024 13:18
== END 2024-01-22 12:12 | disposition home or self-care (01) ==
LOC: LAB 12:12
PROVIDERS: PCP Family Medicine; Visit Provider Family Medicine
DX: R06.09 Other forms of dyspnea (principal)
CPT/HCPCS: 71046

== ENCOUNTER 2024-10-24 12:08 | Outpatient (OUT) | payer MEDICARE, SELFPAY ==
--- OUTSIDE RECORDS SUMMARY | 2024-10-24 12:25 | XMS_ITS | CCD ---
Author Organization [facility] Inform ion Partnership [facility] Care Team Providers Care [employer] Name Role Phone Destiny Gardner Unavailable Unavailable Unavailable MD Destiny Gardner Primary Care Provider MD Cory Johnson Attending Provider MD Destiny Gardner Primary Care Provider MD Cory Johnson Attending Provider DR DESTINY GARDNER Consulting Unavailable DR DESTINY GARDNER Attending Unavailable DR DESTINY GARDNER Admitting Unavailable DR DESTINY GARDNER Primary Care Unavailable MD Destiny Gardner Primary Care Provider MD Cory Johnson Attending Provider DO Abhijit Lopez Emergency Provider DO Eber Kuhn Admit Provider DO Eber Kuhn Attending Provider DO Jhony Almonte Attending Provider SIS Luu Other Provider Unavailable DO Jimmy Esparza Other Provider MD Lashay Chen Other Provider MD Cory Johnson Other Provider MD Jenna Boone Other Provider MD Anshu Lee Other Provider JENNI Holliday Other Provider MD Luz Marina Pfeiffer Other Provider MD Vladimir Steen Other Provider MD Erin Schneider Other Provider Juana [facility] Yamila Joy Other Provider MD Joleen Syed Other Provider [phone] MD Destiny Gardner Primary Care Provider MD Luz Marina Pfeiffer Other Provider MD Cory Johnson Attending Provider Unavailable Unavailable MD Destiny Gardner Primary Care Provider MD Cory Johnson Attending Provider MD Destiny Gardner Primary Care Provider MD Cory Johnson Attending Provider Toni, Dr. Destiny Lane Primary Care Unav ailable Toni, Dr. Destiny Lane Primary Care Unav ailbello Gardner, Dr. Destiny Lane Primary Care Unav ailable Toni, Dr. Destiny Lane Primary Care Unav ailable Toni, Dr. Destiny Lane Primary Care Unav ailable Toni, Dr. Destiny Lane Primary Care Unav ailable Jasen MORE, Dr. Cory Lacey Attending Unavailable McGuinn II, Dr. Cory Lacey Referring Unavailable Calebuinn II, Dr. Cory Lacey Attending Unavailable McGuinn II, Dr. Cory Lacey Referring Unavailable Gardner, Dr. Destiny Lane Primary Care UnaDestiny Jon MD Primary Care Provider Destiny Gardner Unavailable MD Destiny Gardner Primary Care Provider MD Cory Johnson Attending Provider MD Destiny Gardner Primary Care Provider MD Cory Johnson Attending Provider MD Destiny Gardner Primary Care Provider MD Cory Johnson Attending Provider Cory Johnson Attending Unavail able Destiny Gardner Primary Care Unavailable Jasen, Cory Lacey Admitting Unavail able McGuingabriela, Cory Lacey Attending Unavail able Destiny Gardner Primary Care Unavailable McGuingabriela, Cory Lacey Admitting Unavail able McGuingabriela, Cory Lacey Attending Unavail able Destiny Gardner Primary Care Unavailable McGuinn, Cory Lacey Admitting Unavail able McGuinn, Cory Lacey Attending Unavail able McGuinn, Cory Lacey Admitting Unavail able Destiny Gardner Primary Care Unavailable LANDON MCLEAN Referring Unavailable DESTINY GARDNER Primary Care Unavailable POCOS, SUHAIL Husain Attending Unavailable POCOS, SUHAIL Husain Referring Unavailable POCOS, SUHAIL Husain Referring Unavailable ERWIN THOMAS Attending Unavailable POCOS, SUHAIL Husain Referring Unavailable DEPOYSHYANN Attending Unavailable POCOS, SUHAIL Husain Referring Unavailable DEPOYSHYANN Attending Unavailable POCOS, SUHAIL Husain Referring Unavailable DEPOY, SHYANN Attending Unavailable POCOS, SUHAIL Husain Referring Unavailable ERWIN THOMAS Attending Unavailable POCOS, SUHAIL Husain Referring Unavailable DEPOYSHYANN Attending Unavailable POCOS, SUHAIL Husain Referring Unavailable DEPOYSHYANN Attending Unavailable POCOS, SUHAIL Husain Referring Unavailable DEPOYSHYANN Attending Unavailable POCOS, SUHAIL Husain Referring Unavailable POCOS, SUHAIL Husain Attending Unavailable POCOS, SUHAIL Husain Referring Unavailable POCOS, SUHAIL Husain Referring Unavailable POCOS, SUHAIL Husain Attending Unavailable POCOS, SUHAIL Husain Referring Unavailable LANDON MCLEAN Attending Unavailable CORY JOHNSON Referring Unavailable DESTINY GARDNER Primary Care Unavailable Destiny Gardner MD Primary Care Provider Medications Current Medications Medication Drug Class(es) Dates Sig (Normalized) Sig (Original) ascorbic acid 500 mg oral capsule (19 sources) Vitamin C Start: 01-19-2024 take 500 mg by mouth once daily Ascorbic Acid (Vitamin C) Active 500 MG PO Daily January 19, 2024 1:00am take 1 tablet by mouth in the mo rning Ascorbic Acid (vitamin C) 100 MG tablet Take 100 mg by mouth in the morning. Active Vitamin C 500 MG Orally Active Aspir-81 81 MG (2 sources) take 1 tablet by mouth once daily Aspir-81 81 MG 1 tablet Orally Once a day Active aspirin 81 mg delayed release oral tablet (17 sources) Platelet Aggregation Inhibitor, Nonsteroidal Anti-inflammatory Drug Start: take 81 mg by mouth once daily Aspirin Active 81 MG PO Daily January 19, 2024 1:00am cholecalciferol 0.025 mg oral capsule (15 sources) Vitamin D Start: take 1000 [IU] by mouth once daily Cholecalciferol (Vitamin D3) Active 1000 UNIT PO Daily January 19, 2024 1:00am take 1 tablet by mouth once maddie y cholecalciferol (Vitamin D-3) 25 MCG (1000 UT) tablet Take 1 tablet (25 mcg) by mouth once daily. 0 Active citalopram 20 mg oral tablet (20 sources) Serotonin Reuptake Inhibitor Start: 03-04-2024 End: 03-20-2024 Citalopram Active 0 .ROUTE .COMPLEX 90 March 20, 2024 11:59am TAKE 1 TABLET DAILY Start: 11-17-2022 End: 03-04-2024 take 20 mg by mouth once daily Citalopram Discontinued 20 MG PO Daily November 17, 2022 1:00am March 04, 2024 1:01pm digoxin 0.125 mg oral tablet (20 sources) Cardiac Glycoside Start: 11-17-2022 End: 01-19-2024 take 0.125 mg by mouth once daily Digoxin Discontinued 0.125 MG PO Daily November 17, 2022 1:00am January 19, 2024 3:23pm Start: 07-26-2022 End: 10-05-2024 digoxin (Lanoxin) 125 MCG ta blet 09/07/2024 Active docosahexaenoic acid 120 mg / eicosapentaenoic acid 180 mg oral capsule (15 sources) omega-3 (fish oi l) 1000 MG capsule Oral Active take 1 capsule by mouth once jorgito ly Fish Oil 1000 MG Oral Capsule TAKE 1 CAPSULE Daily Quantity: 0 Refills: 0 Ordered: 05-Nov-2021 DO Active docusate sodium 50 mg oral capsule (14 sources) take 1 capsule by mo uth in the morning docusate sodium (Colace) 50 MG capsule Take 50 mg by mouth in the morning and 50 mg before bedtime. Active take 1 capsule by mo uth twice daily as needed Stool Softener 100 MG Oral Capsule TAKE 1 CAPSULE TWICE DAILY NEEDED. Quantity: 0 Refills: 0 Ordered: 05-Nov-2021 DO Active donepezil hydrochloride 10 mg oral tablet (19 sources) Start: 01-19-2024 take 10 mg by mouth once daily Donepezil Active 10 MG PO Daily January 19, 2024 1:00am finasteride 5 mg oral tablet (20 sources) 5-alpha Reductase Inhibitor Start: 06-13-2024 take 1 tablet by mouth once daily Finasteride Active 0 .ROUTE .COMPLEX June 13, 2024 11:33am TAKE 1 TABLET BY MOUTH DAILY Start: 01-19-2024 End: 06-13-2024 take 5 mg by mouth once daily Finasteride Discontinued 5 MG PO Daily March 12, 2024 3:29pm June 13, 2024 11:33am Start: 11-17-2022 End: 01-19-2024 take 2.5 mg by mouth three times weekly Finasteride Discontinued 2.5 MG PO 3 Times a week November 17, 2022 1:00am January 19, 2024 3:20pm take 0.5 tablet by m outh three times weekly finasteride (Proscar) 5 mg tablet Take 0.5 tablets (2.5 mg) by mouth 3 times a week. 0 Active Fish Oils (2 sources) take 1 capsule by mouth once daily Fish Oil 1000 MG 1 capsule Orally Once a day Active glucosamine sulfate 500 mg oral tablet (4 sources) Start: 4 Glucosamine Sulfate 500 MG tablet Daily 01/19/2024 Active Glucosamine Chondr Complex 500-400 MG (2 sources) take 1 capsule by mouth once daily Glucosamine Chondr Complex 500-400 MG 1 capsule with a meal Orally Once a day Active glucosamine/chondr zambrano A sod (OSTEO BI-FLEX ORAL) (1 source) take 1 capsule by mouth once daily glucosamine/chondr zambrano A sod (OSTEO BI-FLEX ORAL) Take 1 capsule by mouth once daily. 0 Active ibuprofen 600 mg oral tablet (9 sources) Nonsteroidal Anti-inflammatory Drug Start: 2 End: 4 take 1 tablet by mouth four times daily ibuprofen 600 MG tablet TAKE 1 TABLET BY MOUTH 4 TIMES DAILY FOR 5 DAYS 11/17/2022 Active lisinopril 5 mg oral tablet (20 sources) Angiotensin Converting Enzyme Inhibitor Start: 11-07-202 4 take 1 tablet by mouth once daily lisinopril 5 MG tablet Take 5 mg by mouth Daily 09/26/2024 Active Start: 11-02-2021 End: 10-03-2024 take 10 mg by mouth once daily Lisinopril Active 10 MG PO Daily November 17, 2022 1:00am Magnesium (2 sources) take 1 capsule by mo [facility] once daily Magnesium 300 MG 1 capsule with a meal Orally Once a day Active Magnesium Oxide (17 sources) Start: 01-19-2024 take 300 mg by mouth once daily Magnesium Oxide Active 300 MG PO Daily January 19, 2024 1:00am take 1 tablet by mouth in the mo rning magnesium oxide (Mag-Ox) 400 MG tablet Take 400 mg by mouth in the morning. Active mecobalamin (2 sources) Start: 01-19-2024 take 1000 ug by mouth once daily Mecobalamin (Vitamin B12) Active 1000 MCG PO Daily January 19, 2024 1:00am allow to dissolve in mouth OR may chew lightly before swallowing metoprolol tartrate 50 mg oral tablet (20 sources) beta-Adrenergic Dusty Start: 11-17-2021 End: 10-05-2024 take 50 mg by mouth once daily Metoprolol Tartrate Active 50 MG PO Daily November 17, 2022 1:00am take 1 tablet by [facility] every twelve hours Metoprolol Tartrate 50 MG 1 tablet with food Orally Twice a day Active Misc Natural Products (OSTEO BI-FLEX JOINT SHIELD PO) (2 sources) Misc Natural Pro ducts (OSTEO BI-FLEX JOINT SHIELD PO) Take by mouth. Active MULTIPLE VITAMINS PO (2 sources) MULTIPLE VITAMIN S PO Multiple Vitamins Active multivitamin with minerals (ynhobkthgcuj-mxqe-uuh ic acid) tablet (1 source) take 1 tablet by mouth once daily multivitamin with minerals (jcztrabxwzcy-swly-jl lic acid) tablet Take 1 tablet by mouth once daily. 0 Active nitroglycerin 0.4 mg sublingual tablet (19 sources) Nitrate Vasodilator Start: 01-19-20 Nitroglycerin Active 0.4 MG SUBLINGUAL every 5 to 15 minutes January 19, 2024 1:00am do not exceed 3 doses per episode Start: 07-12-2022 Nitroglycerin 0.4MG Nitroglycerin( 0.4MG Sublingual ) Active -Hx Entry Sublingual for 0 Jun, Active Struthers-3 Fatty Acids-Fish Oil (Fish Oil) 300-500 mg capsule (2 sources) Start: 01-19-2024 Struthers-3 Fatty Acids-Fish Oil (Fish Oil) 300-500 mg capsule Active CAP PO January 19, 2024 1:00am Ozempic (2 sources) Ozempic Active ozempic (0.25 or 0.5 mg/dose) 2 mg/3ml solution pen-injector (2 sources) Start: 11-16-2023 inject 0.5 mg by subcutaneous injection every week Ozempic (0.25 or 0.5 MG/DOSE) 2 MG/3ML 0.5mg Subcutaneous weekly for 30 days Oct, Active Ozempic, 0.25 or 0.5 MG/DOSE, 2 MG/3ML solution pen-injector (2 sources) Start: 11-16-2023 Ozempic, 0.25 or 0.5 MG/DOSE, 2 MG/3ML solution pen-injector 11/16/2023 Active Semaglutide (2 sources) Start: 01-19-2024 Semaglutide (Ozempic) 0.25 mg or 0.5 mg (2 mg/3 mL) pen injector Active 0.5 MG SUBCUT every week January 19, 2024 1:00am simvastatin 40 mg oral tablet (20 sources) HMG-CoA Reductase Inhibitor Start: 11-16-2021 End: 10-05-2024 take 40 mg by mouth once daily Simvastatin Active 40 MG PO Daily November 17, 2022 1:00am vitamin b12 0.1 mg oral tablet (17 sources) Vitamin B12 take 1 tablet by mouth in the morning cyanocobalamin (Vitamin B-12) 100 MCG tablet Take 100 mcg by mouth in the morning. Active Vitamin B 12 100 MCG Orally Active take 1 tablet by mouth once maddie y cyanocobalamin, vitamin B-12, (Vitamin B-12) 1,000 mcg tablet extended release Take 1 tablet (1,000 mcg) by mouth once daily. 0 Active Vitamin D-3 1000 UNIT (2 sources) take 1 capsule by mo [facility] once daily Vitamin D-3 1000 UNIT 1 capsule Orally Once a day Active Completed/Discontinued Medications Medication Drug Class(es) Dates Sig (Normalized) Sig (Original) amLODIPine 5 mg oral tablet (2 sources) Dihydropyridine Calcium Channel Dusty take 1 tablet by mouth every twenty-four hours amLODIPine Besylate 5 MG 1 tablet Orally Once a day Not-Taking/PRN aspirin 500 mg / caffeine 32.5 mg oral tablet (7 sources) Platelet Aggregation Inhibitor, Nonsteroidal Anti-inflammatory Drug, Central Nervous System Stimulant, Methylxanthine Start: 11-17-20 End: 01-19-20 24 take 1 tablet by mouth every six hours Aspirin-Caffeine (Tiffany [employer]) 500-32.5 mg Tablet Discontinued 500 TAB PO Q6H November 17, 2022 1:00am January 19, 2024 3:23pm clopidogrel 75 mg oral tablet (2 sources) P2Y12 Platelet Inhibitor take 1 tablet by mouth every twenty-four hours Clopidogrel Bisulfate 75 MG 1 tablet Orally Once a day Not-Taking/PRN gabapentin 100 mg oral capsule (2 sources) Anti-epileptic Agent Gabapentin 100 MG Orally Not-Taking/PRN hydroCHLOROthiazide 25 mg oral tablet (20 sources) Thiazide Diuretic Start: 05-02-20 End: 01-19-20 24 take 25 mg by mouth once daily Hydrochlorothiazide Discontinued 25 MG PO Daily November 17, 2022 1:00am January 19, 2024 3:23pm Iron (2 sources) iron 1 tab Oral [...] 0 Refills: 0 Ordered: 05-Nov-2021 DO Active Psyllium (8 sources) Start: 11-17-20 End: 01-19-20 Psyllium Discontinued 1 PACKET PO Daily November 17, 2022 1:00am January 19, 2024 3:23pm Start: 11-17-2022 Psyllium Activ e 1 PACKET PO Daily November 17, 2022 1:00am Start: 11-17-2022 Psyllium Activ e 1 PACKET PO Daily November 17, 2022 12:00am take 1 dose by mouth once daily psyllium (Metamucil) 3.4 gram packet Take 1 packet by mouth once daily. 0 Active Problems Active Problems Problem Classification Problem [...] [Coronary atherosclerosis of unspecified type of vessel, [place] or graft] Onset: 3 10-06-2023 Chronic Deficiency and other anemia (4 sources) Iron deficiency anemia; Translations: [Iron deficiency anemia, unspecified] 01-19-2024 Episodic Diabetes mellitus without complication (1 source) Other abnormal glucose Episodic Disorders of lipid metabolism (20 sources) Hyperlipidemia; Translations: [Other and unspecified hyperlipidemia] Onset: 3 Chronic Esophageal disorders (4 sources) Gastroesophageal reflux disease; Translations: [Gastro-esophageal reflux disease without esophagitis] 01-19-2024 Chronic Essential hypertension (20 sources) Essential hypertension; Translations: [Unspecified essential hypertension] Onset: 2 11-17-2022 Chronic Gastrointestinal hemorrhage (2 sources) Hematochezia; Translations: [Melena] Episodic Immunizations and screening for infectious disease (2 sources) Vaccination given; Translations: [Encounter for immunization] Episodic Nonspecific chest pain (17 sources) Chest pain; Translations: [Chest pain, unspecified] 11-17-2022 Episodic Nutritional deficiencies (3 sources) Vitamin D deficiency, unspecified; Translations: [Vitamin D deficiency] Onset: 2 Chronic Occlusion or stenosis of precerebral arteries (18 sources) Carotid artery stenosis; Translations: [Occlusion and stenosis of carotid artery without mention of cerebral infarction] Onset: 3 09-18-2023 Chronic Osteoarthritis (2 sources) Primary gonarthrosis, bilateral; Translations: [Bilateral primary osteoarthritis of knee] 10-03-2024 Chronic Other circulatory disease (15 sources) Patient post angioplasty; Translations: [Other postprocedural status] Onset: 3 10-06-2023 Episodic Other circulatory disease (6 sources) History of cardiac arrest; Translations: [Personal history of sudden cardiac arrest] 11-17-2022 Episodic Other circulatory disease (2 sources) Orthostatic hypotension; Translations: [Orthostatic hypotension] Episodic Other injuries and conditions due to external causes (2 sources) History of fall; Translations: [History of falling] Episodic Other lower respiratory disease (14 sources) Dyspnea; Translations: [Other respiratory abnormalities] Onset: 3 09-18-2023 Episodic Other lower respiratory disease (2 sources) Dyspnea on exertion; Translations: [Other forms of dyspnea] 01-22-2024 Episodic Other lower respiratory disease (1 source) Other forms of dyspnea; Translations: [Other respiratory abnormalities] 01-22-2024 Episodic Other male genital disorders (2 sources) Impotence of organic origin; Translations: [Impotence of organic origin] Onset: 6 Chronic Other non-traumatic joint disorders (2 sources) Pain in right knee; Translations: [Pain in joint, lower leg] 10-03-2024 Episodic Other nutritional; endocrine; and metabolic disorders (3 [...] Translations: [Nonscarring hair loss, unspecified] Episodic Other skin disorders (2 sources) Non-scarring alopecia; Translations: [Nonscarring hair loss, unspecified] 01-19-2024 Episodic Other upper respiratory infections (4 sources) Chronic sinusitis; Translations: [Chronic sinusitis, unspecified] 01-19-2024 Chronic Otitis media and related conditions (2 sources) Dysfunction of bilateral eustachian tubes; Translations: [Other specified disorders of Eustachian tube, bilateral] Episodic Screening and history of mental health and substance abuse codes (12 sources) Ex-smoker; Translations: [Personal history of tobacco use] Episodic Spondylosis; intervertebral disc disorders; other back problems (6 sources) Degeneration of intervertebral disc; Translations: [Degeneration of intervertebral disc, site unspecified] Onset: 3 02-08-2024 Chronic Unclassified (1 source) Encounter for adjustment and management of automatic implantable cardiac defibrillator; Translations: [Encounter for adjustment and management of automatic implantable cardiac defibrillator] Onset: Past or Other Problems Problem Classification Problem [...] vertigo, unspecified ear] Onset: 08-10-2015 Episodic Other non-traumatic joint disorders (2 sources) Hip pain; Translations: [Pain in right hip] Onset: 02-08-2024 02-08-2024 Episodic Other nutritional; endocrine; and metabolic disorders (2 sources) Body mass index (BMI) 27.0-27.9, adult; Translations: [Body mass index (BMI) 27.0-27.9, adult] Onset: 07-01-2024 Episodic Other skin disorders (4 sources) Generalized hyperhidrosis; Translations: [Generalized hyperhidrosis] Onset: 2015 01-19-2024 Episodic Other upper respiratory infections (2 sources) Acute sinusitis; Translations: [Acute sinusitis, unspecified] Onset: 11-28-2013 Episodic Residual codes; unclassified (2 sources) Edema; Translations: [Edema] Onset: 09-02-2014 Episodic Residual codes; unclassified (2 sources) Requires influenza virus vaccination; Translations: [Need for prophylactic vaccination and inoculation, Influenza] Onset: 09-26-2017 Episodic Spondylosis; intervertebral disc disorders; other back problems (2 sources) Lumbar radiculopathy; Translations: [Radiculopathy, lumbar region] Onset: 02-08-2024 02-08-2024 Episodic Unclassified (1 source) Onset: 10-06-2023 10-06-2023 Results Test Name Value Interpretation Reference Range Facility [facility] US CAROTID ARTERY DUPLE X BILATERALon 07-15-2024 [facility] US CAROTID ARTERY DUPLEX BILATERAL [address], [address] [address] Vascular Lab Report [facility] US CAROTID ARTERY DUPLEX BILATERAL Patient Name: SUHAIL PADGETT Reading Physician: [id number] Lashay Chen MD, [facility] Study Date: 07/15/2024 Ordering Provider: [id number] LANDON MCLEAN MRN/PID: [id number] Fellow: Technologist: Gabbie Marshall [facility] Date of /Age: 12 1950 / 73 years Technologist 2: Gender: M Admission Status: Outpatient Location Performed: [facility] Diagnosis/ICD: Occlusion and stenosis of left carotid artery-I65.22 Indication: Left CEA, Orthostatic Dizziness, HTN, Hyperlipidemia, Former Smoker, CAD, PTCA, AICD, Ventrricular Fibrillation Arrest-2013 CPT Codes: 76191 Cerebrovascular Carotid Duplex scan complete CONCLUSIONS: Right Carotid: Findings are consistent with less than 50% stenosis of the right proximal internal carotid artery. Laminar flow seen by color Doppler. Right external carotid artery appears patent with no evidence of stenosis. No evidence of hemodynamically significant stenosis of the right common carotid artery. The right vertebral artery is patent with antegrade flow. Left Carotid: Findings are consistent with 50 to 69% stenosis of the left proximal internal carotid artery. Laminar flow seen by color Doppler. Left external carotid artery appears patent with no evidence of stenosis. No evidence of hemodynamically significant stenosis of the left common carotid artery. The left vertebral artery is patent with antegrade flow. Imaging & Doppler Findings: Right Plaque Morph: The proximal right internal carotid artery demonstrates irregular and calcified plaque. The proximal right external carotid artery demonstrates irregular and calcified plaque. Left Plaque Morph: The proximal left internal carotid artery demonstrates heterogenous, irregular and calcified plaque. The proximal left external carotid artery demonstrates irregular and calcified plaque. The distal left common carotid artery demonstrates irregular and calcified plaque. Right Left PSV EDV PSV EDV 70 cm/s 21 cm/s CCA P 102 cm/s 35 cm/s 71 cm/s 22 cm/s CCA M 93 cm/s 31 cm/s 70 cm/s 22 cm/s CCA D 81 cm/s 30 cm/s 75 cm/s 30 cm/s ICA P 190 cm/s 48 cm/s 93 cm/s 21 cm/s ICA M 85 cm/s 28 cm/s 67 cm/s 25 cm/s ICA D 104 cm/s 35 cm/s 66 cm/s ECA 96 cm/s 50 cm/s Vertebral 136 cm/s Right Left ICA/CCA Ratio 1.1 2.3 [id number] Lashay Chen MD, FACC Final [facility] Office Visit (Cardiology)on 01-13-2023 Follow-up visit Diagnoses/Problems [...] negative for complaint. Vitals Vital Signs Recorded: [id number] 03:53PM Heart Rate64, R Radial [id number], LUE, Sitting [id number], LUE, Sitting Height6 ft 1 in [id number] lb BMI Vluuyavclp35.38 kg/m2 BSA Calculated2.38 Tobacco Useb) No PHQ-2 #1. Over the last 2 weeks french (more content not included)... Normal [employer] Tobacco Screening.on 023 Adult depression screening assessment No [facility] Work Phone: Fall risk assessment b) One or more fall s in the last year [facility] [employer] DO Work Phone: Tobacco use status [facility] b) No [facility] Work Phone: Activated partial thrombopla stin time (aPTT) in platelet poor plasma by coagulation aOrdered By: Abhijit Lopez on 11-17-2022 aPTT Coag (PPP) [Time] 32.4 s 25.1-36.5 [facility] Basophils Auto (Bld) [#/Vol] Ordered By: Abhijit Lopez on 11-17-2022 Basophils (Bld) [#/Vol] 0.0 10*3/uL 0.0-0.2 [facility] Basophils/100 WBC Auto (Bld) Ordered By: Abhijit Lopez on 11-17-2022 Basophils/100 WBC (Bld) 0.3 % . [facility] Creatine kinase [Enzymatic a ctivity/volume] in Serum or PlasmaOrdered By: Eber Kuhn on 11-17-2022 CK [Catalytic activity/Vol] 69 U/L [facility] Creatine kinase [Enzymatic a ctivity/volume] in Serum or PlasmaOrdered By: Abhijit Lopez on 11-17-2022 CK [Catalytic activity/Vol] 75 U/L [facility] Creatinine and Glomerular fi ltration rate.predicted panel (S/P/Bld)Ordered By: Abhijit Lopez on 11-17-2022 Creatinine [Mass/Vol] 1.33 mg/dL 0.64-1.27 [facility] Eosinophils Auto (Bld) [#/Vo l]Ordered By: Abhijit Lopez on 11-17-2022 Eosinophils (Bld) [#/Vol] 0.5 10*3/uL 0.0-0.45 [facility] Eosinophils/100 WBC Auto (Bl d)Ordered By: Abhijit Lopez on 11-17-2022 Eosinophils/100 WBC (Bld) 3.2 % . [facility] Erythrocyte distribution wid th Auto (RBC) [Ratio]Ordered By: Abhijit Lopez on 11-17-2022 Erythrocyte distribution width (RBC) [Ratio] 14.5 % 12.0-14.8 [facility] Estimated glomerular filtrat ion rate (GFR) non- AmericanOrdered By: Abhijit Lopez on 11-17-2022 GFR/1.73 sq M.predicted among non-blacks MDRD (S/P/Bld) [Vol rate/Area] 53 mL/Min [facility] Hematocrit Auto (Bld) [Volum e fraction]Ordered By: Abhijit Lopez on 11-17-2022 Hematocrit (Bld) [Volume fraction] 44.2 % 38.8-50.0 [facility] Hemoglobin [Mass/volume] in BloodOrdered By: Abhijit Lopez on 11-17-2022 Hemoglobin (Bld) [Mass/Vol] 15.0 g/dL 13.0-17.0 [facility] Laboratory - Chemistry and C hemistry - challengeOrdered By: Abhijit Lopez on 11-17-2022 Natriuretic peptide B (Bld) [Mass/Vol] 99.0 pg/mL 5-100 [facility] - CoagulationOrde red By: Abhijit Lopez on 11-17-2022 PT Coag (PPP) [Time] 11.0 s 9.0-12.9 [facility] Leukocytes [#/volume] correc la nena for nucleated erythrocytes in Blood by Automated counOrdered By: Abhijit Lopez on 11-17-2022 WBC corrected for nucl RBC Auto (Bld) [#/Vol] 14.5 10*3/uL 4.1-10.5 [facility] Lymphocytes Auto (Bld) [#/Vo l]Ordered By: Abhijit Lopez on 11-17-2022 Lymphocytes (Bld) [#/Vol] 2.1 10*3/uL 1.00-4.8 [facility] Lymphocytes/100 WBC Auto (Bl d)Ordered By: Abhijit Lopez on 11-17-2022 Lymphocytes/100 WBC (Bld) 14.2 % . [facility] MCH Auto (RBC) [Entitic mass ]Ordered By: Abhijit Lopez on 11-17-2022 MCH (RBC) [Entitic mass] 31.7 pg 27.5-35.2 [facility] MCHC Auto (RBC) [Mass/Vol]Or dered By: Abhijit Lopez on 11-17-2022 MCHC (RBC) [Mass/Vol] 34.0 g/dL 32.5-35.6 [facility] MCV Auto (RBC) [Entitic vol] Ordered By: Abhijit Lopez on 11-17-2022 MCV (RBC) [Entitic vol] 93.4 fL 83.5-101 [facility] Monocyte distribution width [Entitic volume] in Blood by AutomatedOrdered By: Abhijit Lopez on 11-17-2022 Monocyte distribution width Auto (Bld) [Entitic vol] 17.83 % 0.00-20.00 [facility] Monocytes Auto (Bld) [#/Vol] Ordered By: Abhijit Lopez on 11-17-2022 Monocytes (Bld) [#/Vol] 1.4 10*3/uL 0.0-0.8 [facility] Monocytes/100 WBC Auto (Bld) Ordered By: Abhijit Lopez on 11-17-2022 Monocytes/100 WBC (Bld) 9.4 % . [facility] Neutrophils Auto (Bld) [#/Vo l]Ordered By: Abhijit Lopez on 11-17-2022 Neutrophils (Bld) [#/Vol] 10.6 10*3/uL 1.8-7.7 [facility] Neutrophils/100 WBC Auto (Bl d)Ordered By: Abhijit Lopez on 11-17-2022 Neutrophils/100 WBC (Bld) 72.9 % . [facility] No Panel InformationOrdered By: Abhijit Lopez on 11-17-2022 Estimated GFR () > 60 mL/Min [facility] Comment on above: GFR estimated refere nce range: According to KDOQI guidelines, <60 ml/min/1.73m2 is sufficient to diagnose a patient with chronic kidney disease. Pharmacy Creatinine Clearance (Chem 64.40 [facility] Nucleated erythrocytes [Pres ence] in Blood by Automated countOrdered By: Abhijit Lopez on 11-17-2022 Nucleated RBC Auto Ql (Bld) 0.3 /100{WBC} 0-0.5 [facility] Platelet mean volume Auto (B ld) [Entitic vol]Ordered By: Abhijit Lopez on 11-17-2022 Platelet mean volume (Bld) [Entitic vol] 9.0 fL 6.6-10.1 [facility] Platelet poor plasma interna tional normalized ratio (INR) by coagulation assay (relatOrdered By: Abhijit Lopez on 11-17-2022 INR Coag (PPP) [Relative time] 1.0 {INR} [facility] Comment on above: INR Therapeutic Rang [...] 11-17-2022 Platelets (Bld) [#/Vol] 241 10*3/uL 150-450 [facility] RBC Auto (Bld) [#/Vol]Ordere d By: Abhijit Lopez on 11-17-2022 RBC (Bld) [#/Vol] 4.73 10*6/uL 3.90-5.60 [facility] Serum or plasma anion gap de terminationOrdered By: Abhijit Lopez on 11-17-2022 Anion gap [Moles/Vol] 13.1 mmol/L 6.0-15.0 [facility] Serum or plasma calcium obdulia urement (mass/volume)Ordered By: Abhijit Lopez on 11-17-2022 Calcium [Mass/Vol] 9.2 mg/dL 8.2-10.2 [facility] Serum or plasma chloride anuradha surement (moles/volume)Ordered By: Abhijit Lopez on 11-17-2022 Chloride [Moles/Vol] 100 mmol/L 95-114 [facility] Serum or plasma creatine kin ase MB (CKMB)/total creatine kinase (CK) ratio by calculaOrdered By: Eber Kuhn on 11-17-2022 CK.MB Calc [Catalytic fraction] 3.0 % 0.00-2.50 [facility] Serum or plasma creatine kin ase MB (CKMB)/total creatine kinase (CK) ratio by calculaOrdered By: Abhijit Lopez on 11-17-2022 CK.MB Calc [Catalytic fraction] 2.9 % 0.00-2.50 [facility] Serum or plasma creatine kin ase MB measurement (mass/volume)Ordered By: Eber Kuhn on 11-17-2022 CK.MB [Mass/Vol] 2.1 ng/mL 0.6-6.3 [facility] Serum or plasma creatine kin ase MB measurement (mass/volume)Ordered By: Abhijit Lopez on 11-17-2022 CK.MB [Mass/Vol] 2.2 ng/mL 0.6-6.3 [facility] Serum or plasma glucose obdulia urement (mass/volume)Ordered By: Abhijit Lopez on 11-17-2022 Glucose [Mass/Vol] 95 mg/dL 70-100 [facility] Comment on above: ADA recommended refe rence rangeRandom Glucose Reference Range is dependent on time and content of last meal. Glucose of more than 200 mg/dL in a nonstressed, ambulatory subject supports the diagnosis of Diabetes Mellitus. Serum or plasma potassium me asurement (moles/volume)Ordered By: Abhijit Lopez on 11-17-2022 Potassium [Moles/Vol] 3.7 mmol/L 3.5-5.1 [facility] Serum or plasma sodium measu rement (moles/volume)Ordered By: Abhijit Lopez on 11-17-2022 Sodium [Moles/Vol] 139 mmol/L 136-146 [facility] Serum or plasma total carbon dioxide measurement (moles/volume)Ordered By: Abhijit Lopez on 11-17-2022 CO2 [Moles/Vol] 29.6 mmol/L 22.0-30.0 [facility] Serum or plasma urea nitroge n measurement (mass/volume)Ordered By: Abhijit Lopez on 11-17-2022 Urea nitrogen [Mass/Vol] 13 mg/dL 9-23 [facility] Troponin I.cardiac [Mass/vol ume] in Serum or Plasma by High sensitivity methodOrdered By: Eber Kuhn on 11-17-2022 Troponin I.cardiac High sensitivity method [Mass/Vol] 14 pg/mL 0-20 [facility] Troponin I.cardiac [Mass/vol ume] in Serum or Plasma by High sensitivity methodOrdered By: Abhijit Lopez on 11-17-2022 Troponin I.cardiac High sensitivity method [Mass/Vol] 17 pg/mL 0-20 [facility] WBC Auto (Bld) [#/Vol]Ordere d By: Abhijit Lopez on 11-17-2022 WBC (Bld) [#/Vol] 14.5 10*3/uL 4.1-10.5 [facility] VIT D 1 25 DIHYDROXYon 11-12 Calcitriol(1,25 di-OH Vit D) 52.5 pg/mL Normal 24.8-81.5 [facility] Comment on above: Performed By: #### V [id number] #### [facility] [address] [place] [address] Dr. Shadia Cardozo CBC AUTO DIFFon 11-10-2022 BASO # 0.2 103/ul Critically high 0.0-0.1 [facility] Comment on above: Performed By: #### C BC #### [facility] [address] [place] [address] Dr. Shadia Cardozo Basophils/100 WBC (Bld) 1.9 % Normal 0.2-2.0 [facility] Comment on above: Performed By: #### C BC #### [facility] [address] [place] [address] Dr. Shadia Cardozo EO # 0.4 103/ul Normal 0.0-0.7 [facility] Comment on above: Performed By: #### C BC #### [facility] [address] [place] [address] Dr. Shadia Cardozo Eosinophils/100 WBC (Bld) 4.3 % Normal 0.9-7.0 [facility] Comment on above: Performed By: #### C BC #### [facility] [address] [place] [address] Dr. Shadia Cardozo Erythrocyte distribution width (RBC) [Ratio] 13.7 % Normal 11.0-15.0 [facility] Comment on above: Performed By: #### C BC #### [facility] [address] [place] [address] Dr. Shadia Cardozo Hematocrit (Bld) [Volume fraction] 44.8 % Normal 42.0-54.0 [facility] Comment on above: Performed By: #### C BC #### [facility] [address] [place] [address] Dr. Shadia Cardozo Hemoglobin (Bld) [Mass/Vol] 15.4 g/dL Normal 14.0-18.0 [facility] Comment on above: Performed By: #### C BC #### [facility] [address] [place] [address] Dr. Shadia Cardozo IG # 0.02 10e3/ul Normal 0.00-0.03 [facility] Comment on above: Performed By: #### C BC #### [facility] [address] [place] [address] Dr. Shadia Cardozo IG % 0.2 % Normal 0.0-0.5 [facility] Comment on above: Performed By: #### C BC #### [facility] [address] [place] [address] Dr. Shadia Cardozo LYMPH # 1.7 103/ul Normal 1.2-3.8 [facility] Comment on above: Performed By: #### C BC #### [facility] [address] [place] [address] Dr. Shadia Cardozo Lymphocytes/100 WBC (Bld) 19.8 % Critically low 20.5-60.0 [facility] Comment on above: Performed By: #### C BC #### [facility] [address] [place] [address] Dr. Shadia Cardozo MANUAL DIFF REQ NO Normal [facility] Comment on above: Performed By: #### C BC #### [facility] [address] [place] [address] Dr. Shadia Cardozo MCH (RBC) [Entitic mass] 31.6 pg Normal 25.9-34.0 [facility] Comment on above: Performed By: #### C BC #### [facility] [address] [place] [address] Dr. Shadia Cardozo MCHC (RBC) [Mass/Vol] 34.4 g/dL Normal 29.9-35.2 [facility] Comment on above: Performed By: #### C BC #### [facility] [address] [place] [address] Dr. Shadia Cardozo MCV (RBC) [Entitic vol] 91.8 fL Normal 80.0-94.0 [facility] Comment on above: Performed By: #### C BC #### [facility] [address] [place] [address] Dr. Shadia Cardozo MONO # 0.8 103/ul Normal 0.3-0.8 [facility] Comment on above: Performed By: #### C BC #### [facility] [address] [place] [address] Dr. Shadia Cardozo Monocytes/100 WBC (Bld) 8.8 % Normal 1.7-12.0 [facility] Comment on above: Performed By: #### C BC #### [facility] [address] [place] [address] Dr. Shadia Cardozo NEUT # 5.6 103/ul Normal 1.4-6.5 [facility] Comment on above: Performed By: #### C BC #### [facility] [address] [place] [address] Dr. Shadia Cardozo Neutrophils/100 WBC (Bld) 65.0 % Normal 43.0-75.0 [facility] Comment on above: Performed By: #### C BC #### [facility] [address] [place] [address] Dr. Shadia Cardozo Platelet mean volume (Bld) [Entitic vol] 10.9 fL Normal 9.5-13.5 [facility] Comment on above: Performed By: #### C BC #### [facility] [address] [place] [address] Dr. Shadia Cardozo PLT 245 103/ul Normal 150-450 [facility] Comment on above: Performed By: #### C BC #### [facility] [address] [place] [address] Dr. Shadia Cardozo RBC 4.88 106/ul Normal 4.70-6.10 [facility] Comment on above: Performed By: #### C BC #### [facility] [address] [place] [address] Dr. Shadia Cardozo WBC 8.6 103/ul Normal 4.0-11.0 [facility] Comment on above: Performed By: #### C BC #### [facility] [address] [address] [address] Shadia Cardozo LIPID PROFILEon 11-10-2022 CHOL-HDL RATIO NORM SEE BELOW Normal [facility] Comment on above: Result Comment: 3.3 - 4.4 LOW RISK 4.4 - 7.1 AVERAGE RISK 7.1 - 11.0 MODERATE RISK >11.0 HIGH RISK Performed By: #### L IPID, CMP #### [facility] [address] [address] [address] Shadia Cardozo Cholesterol [Mass/Vol] 138 mg/dL Normal <=[address] [facility] Comment on above: Performed By: #### L IPID, CMP #### [facility] [address] [address] [address] Shadia Cardozo Cholesterol in HDL [Mass/Vol] 42 mg/dL Normal 40-60 [facility] Comment on above: Performed By: #### L IPID, CMP #### [facility] [address] [address] [address] Shadia Cardozo Cholesterol in LDL [Mass/Vol] 64.8 mg/dL Normal [facility] Comment on above: Performed By: #### L IPID, CMP #### [facility] [address] [address] [address] Shadia Cardozo Cholesterol.total/Chol esterol in HDL [Mass ratio] 3.3 {ratio} Normal [facility] Comment on above: Performed By: #### L IPID, CMP #### [facility] [address] [address] [address] Shadia Cardozo HDL NORMAL > or = 60 mg/dl - LO W CARDIOVASCULAR RISK <40 mg/dl - HIGH CARDIOVASCULAR RISK Normal [facility] Comment on above: Performed By: #### L IPID, CMP #### [facility] [address] [address] [address] Shadia Cardozo LDL CALC NORMAL SEE BELOW Normal [facility] Comment on above: Result Comment: <100 mg/dl OPTIMAL 100 - 129 mg/dl NEAR OR ABOVE OPTIMAL 130 - 159 mg/dl BORDERLINE HIGH 160 - 189 mg/dl HIGH >190 mg/dl VERY HIGH Performed By: #### L IPID, CMP #### [facility] [address] [address] [address] Shadia Cardozo Triglyceride [Mass/Vol] 156 mg/dL Critically high <=150 [facility] Comment on above: Performed By: #### L IPID, CMP #### [facility] [address] [address] [address] Shadia Cardozo VLDL CALC 31.2 mg/dL Normal [facility] Comment on above: Performed By: #### L IPID, CMP #### [facility] [address] [address] [address] Shadia Cardozo MICROALBUMIN, RAND URon 10-21 mALB 5.0 mg/L Normal <=30.0 [facility] Comment on above: Performed By: #### M ALBR #### [facility] [address] [place] [address] Dr. Shadia Cardozo PROF 14(COMP METB)on 022 Albumin [Mass/Vol] 3.8 g/dL Normal 3.4-5.0 [facility] Comment on above: Performed By: #### L IPID, CMP #### [facility] [address] [place] [address] Dr. Shadia Cardozo Albumin/Globulin [Mass ratio] 0.9 {ratio} Normal [facility] Comment on above: Performed By: #### L IPID, CMP #### [facility] [address] [address] [address] Shadia Cardozo ALP [Catalytic activity/Vol] 76 U/L Normal 46-116 [facility] Comment on above: Performed By: #### L IPID, CMP #### [facility] [address] [place] [address] Dr. Shadia Cardozo ALT [Catalytic activity/Vol] 54 U/L Normal 16-63 [facility] Comment on above: Performed By: #### L IPID, CMP #### [facility] [address] [place] [address] Dr. Shadia Cardozo Anion gap [Moles/Vol] 12.2 mmol/L Normal [facility] Comment on above: Performed By: #### L IPID, CMP #### [facility] [address] [place] [address] Dr. Shadia Cardozo AST [Catalytic activity/Vol] 41 U/L Critically high 15-37 [facility] Comment on above: Performed By: #### L IPID, CMP #### [facility] [address] [place] [address] Dr. Shadia Cardozo Bilirubin [Mass/Vol] 0.7 mg/dL Normal 0.2-1.0 [facility] Comment on above: Performed By: #### L IPID, CMP #### [facility] [address] [place] [address] Dr. Shadia Cardozo Calcium [Mass/Vol] 9.2 mg/dL Normal 8.5-10.1 [facility] Comment on above: Performed By: #### L IPID, CMP #### [facility] [address] [place] [address] Dr. Shadia Cardozo Chloride [Moles/Vol] 100 mmol/L Normal 98-107 [facility] Comment on above: Performed By: #### L IPID, CMP #### [facility] [address] [place] [address] Dr. Shadia Cardozo CO2 [Moles/Vol] 30.0 mmol/L Normal 21.0-32.0 [facility] Comment on above: Performed By: #### L IPID, CMP #### [facility] [address] [place] [address] Dr. Shadia Cardozo Creatinine [Mass/Vol] 1.27 mg/dL Normal 0.70-1.30 [facility] Comment on above: Performed By: #### L IPID, CMP #### [facility] [address] [place] [address] Dr. Shadia Cardozo EGFR-AF IRAQI >60 Normal >=60 [facility] Comment on above: Performed By: #### L IPID, CMP #### [facility] [address] [place] [address] Dr. Shadia Cardozo EGFR-NON AF IRAQI 55 mL/min/1.73m2 Critically low >=60 [facility] Comment on above: Performed By: #### L IPID, CMP #### [facility] [address] [place] [address] Dr. Shadia Cardozo Globulin (S) [Mass/Vol] 4.0 g/dL Normal [facility] Comment on above: Performed By: #### L IPID, CMP #### [facility] [address] [place] [address] Dr. Shadia Cardozo Glucose [Mass/Vol] 113 mg/dL Critically high 74-106 T [facility] Comment on above: Performed By: #### L IPID, CMP #### [facility] [address] [place] [address] Dr. Shadia Cardozo Potassium [Moles/Vol] 4.2 mmol/L Normal 3.5-5.1 [facility] Comment on above: Performed By: #### L IPID, CMP #### [facility] [address] [place] [address] Dr. Shadia Cardozo Protein [Mass/Vol] 7.8 g/dL Normal 6.4-8.2 [facility] Comment on above: Performed By: #### L IPID, CMP #### [facility] [address] [place] [address] Dr. Shadia Cardozo Sodium [Moles/Vol] 138 mmol/L Normal 136-145 [facility] Comment on above: Performed By: #### L IPID, CMP #### [facility] [address] [place] [address] Dr. Shadia Cardozo Urea nitrogen [Mass/Vol] 14.0 mg/dL Normal 7.0-18.0 [facility] Comment on above: Performed By: #### L IPID, CMP #### [facility] [address] [place] [address] Dr. Shadia Cardozo Urea nitrogen/Creatinine [Mass ratio] 11.0 mg/mg Normal [facility] Comment on above: Performed By: #### L IPID, CMP #### [facility] [address] [place] [address] Dr. Shadia Cardozo Office Visit (Cardiology)on 11-04-2022 [...] fibrillation Echocardiogram; Status:Hold For - Scheduling; Requested for:[id number]; Class 1 obesity with body mass index (BMI) of 32.0 to 32.9 in adult Healthy Weight Tips; Status:Complete; Done: [id number] Some eating tips that can help you lose weight.; Status:Complete; Done: [id number] SocHx: Former smoker Tobacco Use Screening; Status:Complete; Done: [id number] Patient Instructions Please bring all medicines, vitamins, [...] Follow up after testing completed Chief Complaint SUHAIL PADGETT is being seen [...] Recorded: 04Nov2022 01:15PM Heart Rate60, L Radial Fwtfnapp859, LUE, Sitting Glujcnrfx32, LUE, Sitting Height6 ft 1 in Oaizls591 lb BMI Ewvqhthygi72.85 kg/m2 BSA Calculated2.36 Tobacco Useb) No PHQ-2 #1. Over the last 2 weeks have you felt down, depressed or hopeless? (If yes, answer PHQ-9 below)No PHQ-2 #2. Over the last 2 weeks have you felt little interest or pleasure in doing things? (If yes, answer PHQ-9 bel (more content not included)... Normal [employer] PHQ-2 VITALSon 11-04-2022 Adult depression screening assessment No [facility] [employer] 600 DO Work Phone: Fall risk assessment a) No falls within the last year [facility] [employer] 600 DO Work Phone: Tobacco use status [facility] b) No [facility] [employer] 600 DO Work Phone: Tobacco Screening.on Fall risk assessment b) One or more fall s in the last year [facility] [employer] 250 DO Work Phone: [phone] Tobacco use status [facility] b) No [facility] [employer] 250 DO Work Phone: Consent Formson 02-15-2021 Consent Forms [id number] Summaryon 01-21-2021 Coding Summary [employer] 64 UabaxdqnMYz2fQz+PGhlYWQ+PE 7HGWNbU57ibFBaoP4PA5jRAL4Z JHTDEJMDHW8VMU7liOR0BZfrU4 VybiAv DbjaxXGzPN14TQd6MKR9sIsfFU dxlV9byVClN3u6AqQeWZ22qR13 VZnuSVYnGdD1NhMekogzsYJu P6ufZsXhhXGxHeo+PHRhYmxlIH lqAGQoSDkaTUSaEnIzjAavKL7d Tw5oHHZoBBYhrMlvcVMxQxUz q5juKVOlBWdyFY9wdGkbE0EylW O7FXNzc1m8Fa14xYY+PHRkIHN0 lIubNMvmt329XrXrq1jhJSO1 uNObMFkfCXK5F97kk0L7APPqYD ZvOMD0kRK9hH7osJbokreiU5Ro tFAwLwI8ZIY4nRUxdP5uhGel ckuanI0zWbw+K81LTD6CCWYHOU 8OJmh6Z9DeHbewrPY+TN24KERd GR65wXYbhCEln1mtpAj6IyIr ASXqUWR8zTskVIoou4LzARFxX3 0qkHZug3I3GYQhcUnuqUDtXzVc bOF8uZ5vDYtavaufj5yktnjd Okuol3zjzl60vH90K80tDExyLF JyWWJ7RSVqXXSqtQscou4zvB8x Ii8+LSpfh2gtu4ldqZa7CjSi FCCyywUyrMnbTTY2n5OdUc30O2 HewIwve3RbQwq4mf65nHExo5D6 lLY7UXrfJPIstX3aCIubWzP1 ZWJaAmWqmT83dZNnUDwcZw3laW ypiPugPZ9eDIEdllgcXENtnI2g QKKfzCBqjAvyPS3qMSCzbfsw o049FlBcYET1RNGceRErN4BxvD 2nJfCfQRZcEZMfB8BjpVVpREsx D065HYjwJmT9EGGzqhXrX2No ALOorOvjXhR1v6X0Pp6Mw7Cvmn vrWAJ9YWfvOAWmHvB1VaSdIoO9 V1TfVkb6BWUziGxxQF7cA4Xl CVPvfhvpoaxwbKW0KBJgHCMdlG 55uCBhGYbzZk9dv4D5n276WVWz XOCurT81Zr9qgOseUXDcfLXA cL5edenst4uypakvEkOfQPCeRC t8FCr1BPUhuZlxKgSsQJK4EsE4 TWR9vVNlcZ1srJjwxnluvA8u Oyc+R12tfA9vPOQ7ADB3idrhSH AlonPlXQ93BV74Q0WwYcfiiVRr bGU+BERwbhPxfRuyMX3pOpXn n9zwh5CjHBnhS5AsHIHaPRrvBa a5JYOqZLF0xHD5tC7aTWVuZBcp p7M5bKV7M6DvoxAwqq9cx3bo MRTdBMzgS73wnGPcz3B5BROrtG Q5CWFgmLvtSpAupC82Nvw+PGNv bCwke5VwZzbto5vhq5serFn5 NgHnFPHwrkBkuGoqUUH4c0CyDx 24E46oEWueKSGpEJLaFTAvWVLd gGsejb9kyS0bGa6+PGNvbCB3 eXA9rH5uXWBgItT6XYwiD672Lj UqsMEiTcvgs0naj5ddcXu8XdKu WGNvfbTjsMejJXL6o4YwAu01 L11fPKmrJPWdPRToYDGrKPYghU mcmo6gmN6pAh5+FF5lt8rbqs18 wG40pYI+AIVtCYH6jJcuEGyd ODFohX0gIPunRlE5OUAwUlErfE 51zMWhFCyhIg4igBvmbRjmUS7o BBSydpbbc474CeKxc7rmRRVs vWApZGabLZC6Q50kk6I9SDPgZF IlHZN3kIS3xT1ygKsyabeslNGk gNkfraEbwWxwSFkoNMgdM240 IHRvcDsnPlBhdGllbnQgTmFtZT y4F0UfNxu8QCQtwAyyBG4rkPBc NOroPn8pkOypkVaxPZ4qMQDo euiqf664ItAud9mcWDTadQBvPG duEAT0R56po2K4QCSmWSVqVZN0 oNQ3rU4plSzvlerrrCMxrKeh orGfwFltUXqoNAogG521QCHgeY ueIhChmsUlZNDyvRO5LC15IX12 lLJuz4Y6fGS0Y7VbMCQpqmib ofutrTW1NJEwNXLfvB43Qh4ekV plSp6jKWTiOJN9VFWakTSyC9Yo dP5jVoObMRFdRALiF8LjmOJu AWbmY316OAdkBdY7SUUnmdCiU5 LrMRAmgKrpPkJ7o7Y1Wt4AJ4N9 UV50SR90zCAkh0L9tAW3Z4Fm RNLyjvamnktowBY9CQEaHVJuxH 60Dw2scEhbMd0rFNEbWGE9AGFf dIGyX9WcbT2uTxTmBJXiBWRt V6MjhXJhISuyT424SLjoMtW1MK BwegUyB1BrPEYloIslMkQ2p5T1 Gk8GEYm8XQ93HK43qOJsv8W6 cWZ9W4LzDRCaaiqxxciqdQS6AI AvACRwsN43Rg9nxWzoHw5tLPOa RNB6WGNyxWYjY1MlcS6kZgUa XDWhTKXmD7CcaPJzQVdmO128GE mfRjF8ANJwoyUqR0KhAZLwnPch OtQ9x6B1Qf2IZHCqIG23YXU7 hOW0QS37KM09T1QaJdyppUAzbF U+PHRhYmxlIHdpZHRoPScxMDAl NhGmvQzbSL2pRc8yTFPgOBMd rAticRWeWhBaz1uiMBZsVBsaIK 9ivOujU5AerBJ9ANSfh2x7Qv35 E95eH3KsqNW+LBOnuTF6sTI9 tS5jHzKrWfH3WVcjZ750GbFbkC DhEvtri6sgt7yyvWx8HaY4XVDi qrFyeElkKCH9f0HjKg53T13t IHdpZHRoPSIxNSUiIHZhbGlnbj 8znS4vWs2+PQPzzWS6eEZ7pL0z BdWzCcF7PNbdX549TpFclLRx Eyrxe5rne2rizMl7OhUrAVYldt QsiKxvPSG3o1PoKe79K2XvpUow m1NuMay3cg37wYJfx4O1xDB9 K8PdRYYmlddjfHIejXaiHI2bFL IrbwqoQOKflD8vSKJgN9g1OpVo IcE3HIuqN5TzqfC0EHZddKMb JPigMNN3G28kw1M4ISUwAIDfII Y5cNR9tH6udHuqeacujSQmrOtm etOlpLbaLSeeVGetT108TPOa gQfgSFSdbV5oGMKmyLBzjMryYG 4wNTBpbjsnPkRFTVBTRVksIERB GhtHRBR1U1JqSqa1NMSoePay NF8djNZiVOjiAk8fmDhjmCqbBB 6rJHIqydsjXNBtsI4wAIMvaTWz rAclGA5bTYWqkmfzq610DiYg UIJ8MCRmkZQcH8AnoC1dMcIqQC BwGPLeX0XjuYVuACjyT329YJqz NfM3XUSchnUgT2PuHMJvpVdt IkB6v0E2Wb6kGd2mMd3xLJT7RE 27DW01oCJun7X9tGS8J7VnHFHa gwcqebrjfJB0GDGdEURzvW72 lCXgXMrbXs4au2E9n356RYCcZE DsmS96Qo7vfUwjAECjdMKXvJ7r ucgmt9ekmfyhMcZzBKMiOCo0 KMu2DUCpmWabKlEkGXI8HvM9FH R5pEDaqW4unQqjbtwzbR4gOdm+ ZqQgHSHwcpE9F1YlGag4SVWu xKjePZ8cuUZpIGkeGn7kqBqcwZ ryQN9kQXMgarkpMNBhaI6vTQFq eAHiwSkuCT7nSIBwyului950 CoHiODU1OZZqfGWpT9EvqT9sDc ZaSPXpOLCrK6ApiJQoHOxvT789 MTtjOxS2BUKbmwWwZ4ZsBTWq qJnuZgG8f1R4Cp2CTOwLFZ58IM 54yJBqp5B0eHM1I6SyOTLbinla pylpjEU9AKAgNMUenM50sCCl UKksQs2jp3F8p676LTXvIJZlwL 65Ac0gaXpqWKPzuNXJvO1mmjwt d9fsdmshQgXvNFZfXDp7XNi4 FZBekZrqJpWeYDI7YjJ4VAW8jV EzaG2xtTrzxvshiV2cLqq+UmVj tWStoJ4sIP06aCDqeKajzjA7 R5RqMpsiaJP+SO09ZTEoUN38oW TgyMPfv9yzlXy5VcUfLDKbUCG9 oAthOHhmf4VcJTUnU24blSOs a2V0LUIinQjasJZyCoQfeRA5eW 9oVQbkbtsps5vykzagKcipp4rl yq99jV41F14oMLzxYOQgWYOj EJZdYBFeuWhijm5poR8eUt5+PG GyzAG8oUE5gZ6vCvIlFeN5WDpp F485OaEonELrQyxaj5xjn6mr pKl5HgFmTPFzndYmxBevPQD5y4 HxIi93B50xSYjcQHTrBJHzNDRo MCGduNezax5lcE8mFa7+PC9j d3hwze82sN99mBL+UGIgMSW1xA dwKNwcJYEfuA3gAXgbCgZ0OAJc AnEowS70lPUtCXjaTq3raCtp hIfgLD5kYIRhsapxy436HlQwv5 zvWTZyyDPbVHhlNRJ9U43ko3A6 AZPpNJChXLM1qAX8rQ2lpCel bjogbGVmdDsgdmVydGljYWwtYW nxI911UQLurRptHhMnaDBsI9gv bcAGMJ1xDjjxyYX+PHRkIHN0 iJokTBvwFOEoiX5lMXZyD3b6Kx TvIxR9GMsgA5FiwcU8NBEhiMYs VOSwpWIJvB6kmbsnv3sxlnpm StVeEQEvZBi1DEm8JYZpzZxsEl PbZTD4StD1OCQ0dZLzsS2gaWnd uslkkL4pJzi+RklOOjwvdGQ+ YRClVCM1eExxMKhePLBajI4eBR XmB9o2FcHiCxJ3UKfyM9UtswB7 QFEbnEFgREGjaRASmG7evdsz v4tbcclgByRqKKRaYKk2CKb9DN MuxPxxErWuAAF2WtS9BSU1qCKn gA1rzPuyiklomD0gLuc+TVJO OjwvdGQ+USQeHLQ7aMhwLTijWI MmxB1uEHBsZ5m6PnCzZhD9QJqe P2GzevZ8JTBacYIsACTyxARG fT0pfjsnb6jhvrdvWnNjXISgNM k6HNr1FDDwtAqmRbLeMQC8OlK2 DMQ8qDBlmM4aaQezgnoysT2y Oyc+SNU3YQE1IT29BJ27G3NrNj wvdGFibGU+PHRhYmxlIHdpZHRo KUtxWUItEwGpkSxzWP0tIg5b HNDfQPYkjUcbaUJoVrHvp7myRZ YoEIryZW0ezDuaB7WqoHE5YBGq m4a3Oc07X88fU3EknUV+PGNv aSA5dQI5gE3dLyGwOsH7ZEckZ5 99PsVfoTRyHjpxm7zvc9qseTy2 TsJgFVQpbhTynBmoXMM9y6Uv Ag93U64jOLuoUZYuAGOzIQAfHP RuxQlnjr5kvB7sZz8+PGNvbCB3 uAN8fS0oJoToBkL9PRyrK305 MaNdqMGzMlnrL13pB5IhhVU+PH BgSal0AOVgfBtnWK3mxPSpFTca Nc3oMVA0ThMjJeAhMIaiC2Vv BUVxemgataerrGT8NCMdBLAlfV 53Dm8ggLrbCFTatFERgE2iexvh g1susoghBsHlUWMqDEm4GWm2 OSUmuWmyPaSiRKD2CbW8YNZ4dM XwxX1xfRccssiynK3fT3NsWYRx ryoaGq48zJ5xXqAxZnT3KAwp Oyc+TXVtbWVydCBETywgVGltb3 RoeTwvdGQ+FCWaDSM4lWwxGBxp RUUstO9iDAMzK7w7TyFyDvH3 NBddS1KtAMGckzvzZy32pN9dXt DhOyN6UGvjG8DfmbB6NTZstLVf RYfeMCO5W89yu5F8JTEwTGDq BUC6yNK7lV4jrCjaubqcwOCcxZ uqzuAgdOqiKHipSOrwD438EREi gDktIqGzEzHfSQRmMY81RV42 tLSpe7Y3fFS2Y8DxUHYdninvcy gnoCS7DFBvLZIwyB97zQKlIJfp Ac2xm2N2n825YWSzDLJuyD21 Gi0ngJutRARfsSUGzT5ykmdvr0 tnciqcMvGgQFBeXSn2XIc5AVIg bXsnKqOfEHN1QiJ8LNQ9aKAx hD3ksFbdgkhpzD8uMjc+MTItMj yuKaB9C0OcJbl8BWWqpHuwKK7t lYSdRUufUn7ltUhezBigCG6y GCMucfbpZHHpyC7lZYEjoHAroC njFF2tIQWdlpzas532YvYbCZG7 ROOqjMXqR6DnpJ0cEtYdYPPk PXImN7YxuBYsJKfzL719YVnbOx R3CVIoceQrY6ZoXOGsjHfwRyU5 l7Q4Qu5QVNRaB9BxJBKLRuii dGQ+CY87ek48M1YqYyqrWaw5LR BdQTC7dTU2sW8xQSYpSTmdk3A0 aMP1O2GvqqSwdd7ov8piRQUo NTujP68hrNHpq4L2POOqhPG7MU RlfGnlAqAxsN43Ycp+PGNvbGdy w3PwOghes3amd7iysXo4QaXs XEMthaRnoHwtKBW6l8NmTa58Q7 9sIHdpZHRoPSIzMCUiIHZhbGln jl1apE0tKl6+KGFdpNS4bLH8 lL5cGoCnRoM0YMhoG342HwYumI XcQjcmx3uqu3muwNz1QyElFBQs jfZmxWidLJA9q1PxUu99V2Pg fFgjo9BnZtu8ax55bATcn5T8nD R4K6HcESPomngbmRHowWdyPA6m ZKTmhrvwBGWchJ1fKVVzA3n8 AeDlEtX6HHwbP3JxqfB2AWQekQ ZlFXKosMMZyJ8fbzgwp4mimwza YyEeJKDcGFy1FTq3HPPwsIla IfHeCYP5EqJ7NCH3dSNdiK3ijP hvufhkuW8hIrs+RmFjaWxpdHk6 MB59PF91xTCln6L8tND3F8We BMOwmfaglmalrFM3EMUnBQXmoT 22Zx9wuBwqRs7pCTIvNTQ1KQZc qXOqD6BzlB4dZmZwOGJaACVc U1GvcBLgJLflS853UBroYiM4KM SawqXnK0XwDWVjwSbnImN3t1Z1 Do6GsKNojFWaI1AsQVjroP4f nPQwq264FX27AM60oJGgc9K6rY I8O3XdTUTvzokhrartuLO6KKKc BRRsfT37Rq4jfAlgKl2kHUAg TGH1KPZkuOReL0XaoX2mZwUhZF QiURAuO7ShxWMrFWhdM785VYzr MdW4QTAbjgItG3ZsAULuiAeg NnD7t8X6Gu3CGR0rvDZTXHFjXa wvdGQ+WLUdTSI4mQfqFBknBIZt uX3zGBJoI0t6TyGxZeH2HLdz J1ZvppH5QOMbhILeCWGfxSWWiT 0jijorh3kvmckkBgHsLZTjGVf0 KNf5CDKquItuSxTcTTB6EkK6 NIA8tZWebH6vrRqdrncljX3uRn c+YXfiU4usleayWCPpaXD3TR39 NV68W2XzVzzfbEUdeVL+PHRh YmxlIHdpZHRoPScxMDAlJyBzdH koJY0aCj3mAOUyRHCslOxkgZOe WqWul0ozZAXnVUjtHX6clKfg V7IwfRF6SEVrv2c3Qq53S84aQ7 JvdXA+OQQauQB3mBB4wN5hBoUb ApO3VLomM350UbYmeLLyKybc b4imq3wsmCt3EuPbBVBqsjPieI lqLJR7e1KeTx17K34xKDkcKUYj PGQbHSFnCEBcgFemdd2seW9k Ii8+KEIkbWV6yNH7cV7qNpCdSa A6QSsoS257YvWwcTGuDhqxC70h K4IbzSQ+CUMfLsb4JLYuzUmp BB8nwXFzLPdnHk8bHOV3NhQtNn TkRTzlL8AdNTGztgvvdeadoTC4 KZFuCOSucR31Qq7rfGguQSKf uITApW2qusjkj7tfsriqVjRsCN KjFFf4XRo4FNMghDreEpQiNIC5 KgK1JPX5aATgnH5tzLnckytd mK5aY5BoPZZyajlaTy61oK1uHm AdCqL1ERhzKmu+TWFncnVkZXIg JY7dhOo6AMh0C5YvPdk6LGTz wIqtYK6hwEKlBLjjLg0jgFusyQ lwSO1lKSCfioahQKHliP4kGLCj fORogXspMU5gSUJjwpdcw675 XeJxTAZ5WVLlqJPqK4IyrG1wHa GaQYTvXRFnZ8VxyUYkDJovW012 YGzrWqD4CHAbdhOkZ7MeRIOj vOnrBoH7c6B8Gi84N2SmYvj1PV OncLsoUB1zbEFhMQkvOc1ssPpl mCcxVV1bROYgkddwYTVqkA2k YXBprGMlgZebRZ1aCHKkrnalz4 31EgEhTKQ3RAHtgACbY9DdpG0c ZiWkQIHdVOHhH7IieFOtRGgd Q006GDnyCcU0RSEpqpSyK7BtOA VsjKxoYdY2z1P8Mb1gGi4sQY8l AKCoPK40HD51hIQxt1I9gGO2 L8BnRXYahmchmvcwoRA1JSCbIT WhmH81pQYoSXhoMn9uo2Y1q890 YKCaGZGprI78Pn3cvZyhAXPl yFOOxN2yhjhdb9uqiandKcKdMF ZuBQg0CDi8DQRgnDbyXbFuAWP0 MmK1HIX2tWOhmS3ckRtreuau dW6zVwe+VN95EZ60Y4JwWfkizB FibGU+MZ8xcJA+PHRhYmxlIHdp MSLyDLovFKFbHnDziZcbWB5u Nn3tDZQiFTZtkVMwzMflcSnie6 7ftKDeArdhF2k0YIIljdXhye8w c8gsJXLfKYsrX26csTOej1X0 KOOcaER6UXXttShlQcNvxL55Iy c+RUGkzUwvt8NxHogjg2dfl3rj nZf5VyLzEUMbASYieHvdsj3m kV2sZy0+FL5fh8dhig02cI64eY I+PHRkPjxici8+HR39GX45G6Yo Vva9zp68fKIwi7R2dUP6H5Wm ahL2JYLvnZAwAGFlbUIDfA2xda ezn6fxxqifRgYbHAUzDXb7NYi8 QMWgoOzhAbZnGE27RUZ1PMSl kwDrK1KrONMhgDapVtI8k7D5Co 1KPn7SFAXBME09MB94E3DwLkbj dGFibGU+PHRhYmxlIHdpZHRo PVfsULXnHuFfoDqgZY2tMb5tQU SaKYGaiQFxnKtsiUxpw54dhNWl QapjH2j7IIPoapUbte0qc7bk YTNzYTocD89chGQpi3D9PDBumA P7MWApnOcrQaEfrB87Abd+PGNv sHvwp1ItRobcb2wfe0bnyTq4 XbPkVDIzTAKyiOysbl6ccB9zYc 8+HB1al1ixcs17sV08sFV+PHRk Pjxici8+QQ61ZS78A1YtJbj9 nt31qVDpl1O5mSV5A2KoqmW9NV NbtMJpNFMsjCEUeP5lrefxm9uc tzzmXrUaBCGnXBw1UTg3OGOt qRhiFnGkZL18CBL5SRSzihHsX7 UfPPVjrBvuTlF5c0G3Je0WELBJ Ka3IWYJ4V2DgIrlbzFS+PC90 CKKuOI77aJQqxYIru6jpdVr4Zc WtHSUfCGL4yZkrTRmat7YxWWVt Z83dzBUdm2O1RQLmxUphjCFz IpIqvID3wJ0rOHdqvlecm0mysp scAtbyq2hcmx84uA52O84vHKjn DKClYUOwTNHbXRBlrRbvbf5q nJ3qDn3+AZAmaQA2bZN0jK1kJM OvPoQ9WNqhZ950MwXwgSBeQckn x3rmo0chkAw8UuS1GPOqkxKo nUebWOV1w1LpSl13Y21mMAmwTH ZjAPWdXpWySHFxnNlzrn5qrL2a Ii8+HT2cv1lgrw60jE33mOO+ EWPaMIJ3nPzmJZqlLWReaV7uHF suZvF5QDBfKaYwwS44wLJyKQhf Aw6tiUvvsZcsYR4hHEZefklm n168RdVrd8rfOOGipXUsHFlhQA Z4L10ul0A8JEIeJDJkMFY7uLB0 uA5ohPpernqzmJIgjZzqstTy tZrjJCspDOfaO395FFEjtJzsHz NvICJ2T2QoHco4HYKtqOizAG9q uMIsRRngUi8gmAegcVrmKR1l BMXskendh017HfVxj1xnPQMceJ EuJIbrJEW8F70xn8A7MWTfNQXl MEO3dZL2zS8nyWagcqzrdJGu tSlzydQxwNjwOOvtHIqfS534BV RvcDsnPlBPQTwvdGQ+PHRkIHN0 sRzeQThdFAPneK8qPQQbR9y3 FfPvGhZ0SOcvA8EeahV3NWFucF RzSXYkqQQJaL1iuyiul0dkbgdo YdCaZGSqVQs2TYh8YVQueLdg MuXfHWJ6HcH9TMT9zKRfwS2dkJ hwsqwabJ0lIgg+QIRmN5HbrPSk c956E9TqBwn7MXKouNsuRS3e yBDoVCemIq8fzLqttQrjYY1cTX Iaijmop824TtBye2fdVRBdgDXo FHkeVFQ1H64fg7E4SPAkBAEt IAB1xYO1rN8hvRakouhfrINcuD efgxEffKaqGFebAOmqZ723GPFj bYdcJuQ3oZZ4M5IyTvbqsHI+ KI69CEYcZG39yGGfkBBco5mkrM i7UnXkFAPoHYA7ePrsDYtff9Fd QHUaT39unKVyp1G4XZMmtIpg oRDvAsQuxIN3aT8rOMffrsuwm3 tjfuxkLkboc2gddm37dJ36O61n IHdpZHRoPSIxNSUiIHZhbGln bm4rrA3eZy7+NZHafBA5mMB1jX 7lSPUqLkU7ITxuC510TnFunOOs Ycqqg1kas1asfUc7VzH3PIGf aaGmxSwsGOB3o6NeQn21E99uZT goDRYiEIOlAgEfJQTsfOtfsr0u rO2dFr4+LA9kl2xiqk25vU77 dHI+FNAgQKF3eMnhYOpbQVOzlO 3dINadSzP5WDGpRsPkxD91hAMd KMysTa7iuFgqaAzmGH4rVIEo fpfac553EpRkCSP6CDOhyDRjN8 MxlE7fFpQaKNUnYSIvX6HzsXKj GDiaA920GPbePsG3SZThtkAz R8EkEDEjpWkxYiG3u4J5Te2uZs A0X9HpPvj1PK35E8CuRqp1HNUk mOucRT0ajMPwOHdnEs0fdAel nGfhFQ1wCERevapgl424HeVwUA C9YUZmwDTnJ5FtoO4oMvXaQWTi EENkL5UplKMfMWluP831TUie LlZ7LIUhwtZfR7AiCOEenCsyEx Q6n6E3Qh0RoeCbnJ01SPFnTa0h IGltbXVuaXphdGlvbjwvdGQ+ RPMiLYD6aYspUBfwFNIoeK3xIP UiW5i9KoFgMaG8QAnfB7YmorU0 YDOyzCKjVYhqZGH1Z44xk1M6 ELIbSONsYPT7sLX3jU6huKmkwn ogbGVmdDsgdmVydGljYWwtYWxp S568WCXxcYkwRcPZYnfpdWV+ IZ56rm05E5XsZjpoMap2GINxVB E0oJN5gQ3lWUTxASaij0E4jAX1 G8BfrgWdcs4tv6azSXNxHCej P64lgKQqe2N9JAQxjFP9QIEpbG aaCtNetJ12Lxt+EZGjSag1TFJz mQuwKW2fPPAbMDMfnjwigHHs tGaeKA4kSYOlqegrYHQexJ2tQG QpP2t0JqNqEmT9QBjyL1PqirR8 LPYaxJNrNIMgzFNHcU8yzxws b2nygcazOrYlNTLeDGkbBSXqE9 MqjQ1oKdRpBKGaPOGmE0GzwPAm JGfkS991SAuzTxO2BSDcxwUr N3HrEMVsoNgeDqL8p2A9Fe9Yyp muV8cgGFo4O6EkStskgWD+PC90 VPRyJJ10mWQfhGEab8kdzDs3 MeAuZIBmSCZ7rHojOVgcz5MsWZ JcU43fsYNvl8K1ASGkaWblmZNy HtFpzHU4yD6qDFirvmnyb9ag tlflCecdg6wrio73hW85L69vJU apMUMzYIKvDNOsLSFnbLsqrm5y hQ1bBl0+PAXqnXT2uVA3iI8m GOPrMqX5FQkiO873EaZszOKqGu ldt4hfe3fcoZd7CnA3HWYfbzWk dDsbCUB3k9HbGk15P10mGNvd NXDdWDReLwZaOYOrlUzprp3zqE 9wIi8+PH0um0bryi53qV09aWW+ WWMeLKE9cFizCIvoUIHmvD1b XKijBeI9IURvIjLmsD90yLScBY huNi2wdDycgCzcPJ7oNGOnsfdg m398MaPnTIV8AONbuVHpW2Di wX1sUvLoZWKbLCPgB0IdfDWjNG xvI047MQtkXjF8ZRLvxpDyF4Qn XQGwsQjmWhQ8p8L3Jm7jGqK9 K2FdTki2KQKhwZscOJ4vpPKpMP neMe8qtLaohSmuPW8lPFVybqqw k703JlVrVML4SCDfxWPcB0Ii xN6kDdBgAGQyXJBtT9HnlDRpYC slJ469IXtrOrM6XESsugGzP4Op CGGjmNrcYwM7u8G7Nu26K1Ye Uzg1PTWweOtiIH1xfBWlMDnqTw 8udJjopPlmXD5oUTEnbekas736 NhVtEUJ9RRVfnRDuL6EcfX2i LsHkQXHvZJSbB5DfpHJxSPviY4 58EDvrDtG1SGLlvfJvA0CqUJPy lOqzFjN9b3Z5Rm6OdxOriD86 ZTDuWl0aHOdqcFRwzPrtnShtsg wvdGQ+MTFyMBE0cCenNErxJDWx cX2uUADpZ8b1XqJyVrT4MEwj D0IqpcU7OTYkjOUfARnaIUT0I2 8ut8F7KCIlRXDsOBH2mWB0fY4v bGlnbjogbGVmdDsgdmVydGlj IZwoSNteM967KKDtsXatSoRqgf XgLH27XM04C3XjHjmnfFLwtDC+ PHRhYmxlIHdpZHRoPScxMDAl IoKzwEkzSC8cOq7yFUIoDEYbsY EtzQajwTcov77kyHWgWomqB2z4 QYDazhJlty9xe7ykYCTgKMfe T53zcEHlb4X5AGBxvTP6SLCisX zpSaUuvK93Hgg+PDNyxNgvt9Hy Sfhgt6jxm7sbcXc8BzMcRNEz LBIdoVqodt4itG7gMd7+PC9jb2 iwut77vT22aMH+PHRkPjxici8+ YI26BO01L1KrMgt6fw40vGOk b0D0gTF6G1CaucU1YSEhzBDjCL ThqGWWrC5jrfrwk6ezyyutOpBo WXQqQPq9VGo1EKAgoLjnTbZv DV30GMI3PNIfoxNkQ7DtABPccN dwGqZ8i9V4Az7HEh6VDFBMHvJ9 O1VdLcvvhVH+SY64QNNaDB93 YnIvPjxici8+PHRhYmxlIHdpZH ZqUQxqIEXiFrCxiAmwTB3zRl6c SJZvDMKvlDdsmYRxZyRms4rv ISAgIRosAD2yzTvdS9CvoBG6SR Bqu6r6Mq05B82mJ5AgaIT+PGNv wZB6jSD5vW4dMKNuPAFczcDd zHuoXKT3o9JiTp74T2BofWpgc9 OjQoa4nx24jHCjd9M8cHX0P0Nu QOChthuaxJYctIbvSD0vLWNo lbpbCHMwsY4hQEDaW0q5RiVnIh L3CKcfV7GepbM0VTObrEIvNXxa ZOP3J67uj6I8XLYiKWIrVLQ8 jAM7sO4bdEadsakmsYTobIsqtd MwyXaiHTvqBVitG356FUGsgUtm Qf5NQVO6DUFaCGEmh1OpHN43 dMQozrQwt9ZvI04xIVGsVXIpwI NxHAZgGFGcm6G9aVGxpIQdBQHf NOtcn2EiigFkrnCqs9VuuISl C4AwmJPnUOpdKESiVKBtIHWsJX 19A6UcT5gxglWaKPjig7U7LHPe IHRoZSBuYXJyYXRpdmUgcGhy NHDeMKBntQ79RVKvApUyjJM9cB ZtW40pgP2tOVNaWvO3JWKuXP3v nWMzaVOsINRfYNCfzyT1rAE2 RCFdHY7pTTUex2BysCOraaEggP lnaHRseSBkaWZmZXJlbnQgdGVy tJayl1yfZ1hjSX86PT69Z8Bm PjwvdGFibGU+ZWAlSi20ZcNpIf wvdHI+KA80FFReSU63wSBnpZLw k0xktQn7WqJkOZKqOFO8hHhs PFxjc7XhJNIzQ60rxQSto3W9GI RygLvnnZMdVrLnnUD5fF5fXBqu dxlmf4tmwjlhBeswt0khsp41 gE87E54vUWnfBTDeWBR7AEYuFT ZxkUvgoo8ejG0uZh5+PGNvbCB3 oJR4fC2wPERtSuB6KDfkV152 SsFiiXJyDcbcB84hT0PmrMZ+PH LzAni4HV85G7VtCql8XFPnsMki UF6zDFVrWCKkrjjodkzwoVE9 KNRgVUKneX30Kw6kgXrjQWVntZ TZzX9vbohxx2yrlwvgAmDrKGNi PSz7HMg0FPVimGhhIlIoBRX0 PyE9EVE0pIPsrP5byIqzhjzxeJ 9wOyc+F48lBTDdOog6CJHEz8r8 OMNmEZMVWM8zpXNciiueaZB+ RY81cc29Z1SgFwwsWud1PMQwPG A9lCA7aG8xVXDtIOmhg3O6dDJ8 E7IcluUwis2wl4pnMECwNJoh G17msWSuj7R8AHMzlET1WIJnrE lgQlLsoN22Kmq+XZIkaJatw3Dr Krgbg4flz5tvfXq8WcPcZFMq naNkiClaGPS5x3HgGr35P75tTX ziDGPyVFY6CVVkUWZtxBfhgi3y pI3eEp2+SJ3ad9dfgb27sK37 dHI+PHRkPjwvdGQ+NDBkXFM6oF hjYOkqlCAuKJaaKi2xiElgxXxg TT8aAUZwbtehy605ErOrDBO3 WXWseHTkB2OydM1oXnIeZXTyUC ZwV3FphJWyMRekD206XVfmIsJ9 FHBasbCoN2RxZKHtcNiwAzN7 m6L4Pm3NYMUnKTNyqrCuJiSoZO MvMDQvMjAyMSAxMDoyMSBhbTwv dGQ+QZ45rj56N5JkHbayRbyf ci8+WLBqXx54D2g2oRt+ [facility] Consent Formson 01-15-2021 Consent Forms [id number][facility] [id number][facility]/REST INJE CTIONon 06-03-2020 [facility] CARDIAC STRESS/REST INJECTION Patient Name: SUHAIL PADGETT STUDY: MYOCARDIAL PERFUSION STRESS TEST WITH LEXISCAN Performing facility: [facility], [address] [place] [address], [address], [place] [address] [facility] Provider: Gera Johnson MD, [facility] PCP: Dr. Antonella Gardner Supervising provider: Jenna Boone MD INDICATION: CAD; Dyspnea Ventircular fibrillation HISTORY: Gender: M; Age: 69 y/o ; Height: 185.42 cm; Weight: 447.3601007 kg. High Cholesterol; CAD; HTN; ICD SOB; Quit smoking Unknown years ago. PTCA on . COMPARISON: Previous nuclear testing completed [facility]. ACCESSION NUMBER(S): [id number]; [id number]; [id number] ORDERING CLINICIAN: CORY JOHNSON TECHNIQUE: TWO DAY [...] study. Electronically signed by: JENNA BOONE MD [facility] Vital Signs Date Time Vital Sign Value Performing Clinician Facility 10-03-2024 10:21-0500 Body height 182.9 cm Suhail Schofield DO Work Phone: [facility] 10-03-2024 10:21-0500 Body mass index (BMI) [Ratio] 28.48 kg/m2 Suhail Pocos DO Work Phone: [facility] 10-03-2024 10:21-0500 Body weight 95.25 kg Suhail Pocos DO Work Phone: [facility] 01-22-2024 11:47-0500 Body height 184.15 cm MD Destiny Gardner Work Phone: [facility] 01-22-2024 11:47-0500 Body mass index (BMI) [Ratio] 32.5 kg/m2 MD Destiny Gardner Work Phone: [facility] 01-22-2024 11:47-0500 Body weight 110.27 kg MD Destiny Gardner Work Phone: [facility] 01-22-2024 11:47-0500 Diastolic blood pressure 78 mm[Hg] MD Destiny Gardner Work Phone: [facility] 01-22-2024 11:47-0500 Heart rate 80 /min MD Destiny Gardner Work Phone: [facility] 01-22-2024 11:47-0500 SaO2% (BldA) [Mass fraction] 96 % MD Destiny Gardner Work Phone: [facility] 01-22-2024 11:47-0500 Systolic blood pressure 119 mm[Hg] MD Destiny Gardner Work Phone: [facility] 11-16-2023 13:00-0500 Body height 184.15 cm Destiny Gardner Other [employer] Other 11-16-2023 13:00-0500 Body mass index (BMI) [Ratio] 33.3 kg/m2 Destiny Gardner Other [facility] Other 11-16-2023 13:00-0500 Body weight 112.95 kg Destiny Gardner Other [facility] Other 11-16-2023 13:00-0500 Diastolic blood pressure 77 mm[Hg] Destiny Gardner Other [facility] Other 11-16-2023 13:00-0500 Systolic blood pressure 118 mm[Hg] Destiny Gardner Other [facility] Other 10-06-2023 14:08-0500 Body height 185.4 cm Cory Johnson MD Work Phone: [facility] 10-06-2023 14:08-0500 Body mass index (BMI) [Ratio] 33.51 kg/m2 Cory Johnson MD Work Phone: [facility] 10-06-2023 14:08-0500 Body weight 115.21 kg Cory Johnson MD Work Phone: [facility] 10-06-2023 14:08-0500 Diastolic blood pressure 66 mm[Hg] Cory Johnson MD Work Phone: [facility] 10-06-2023 14:08-0500 Heart rate 60 /min Cory Johnson MD Work Phone: [facility] 10-06-2023 14:08-0500 Systolic blood pressure 112 mm[Hg] Cory Johnson MD Work Phone: [facility] 01-13-2023 15:53-0500 Body height 185.42 cm Destiny Gardner Work Phone: [facility] DO Work Phone: 02-24-2023 15:53-0500 Body mass index (BMI) [Ratio] 33.38 kg/m2 Destiny Gardner Work Phone: [facility] DO Work Phone: 01-13-2023 15:53-0500 Body surface area Derived from formula 2.38 m2 Destiny Gardner Work Phone: [facility] DO Work Phone: 01-13-2023 15:53-0500 Body weight 114.76 kg Destiny Gardner Work Phone: [facility] DO Work Phone: 01-13-2023 15:53-0500 Diastolic blood pressure 60 mm[Hg] Destiny Gardner Work Phone: [facility] DO Work Phone: 01-13-2023 15:53-0500 Heart rate 64 /min Destiny Gardner Work Phone: [facility] DO Work Phone: 01-13-2023 15:53-0500 Systolic blood pressure 92 mm[Hg] Destiny Gardner Work Phone: [facility] DO Work Phone: 11-17-2022 08:59-0500 Heart rate 74 /min MD Destiny Gardner Work Phone: [facility] 11-17-2022 08:00-0500 Body temperature 97.8 [degF] MD Destiny Gardner Work Phone: [facility] 11-17-2022 08:00-0500 Diastolic blood pressure 84 mm[Hg] MD Destiny Gardner Work Phone: [facility] 11-17-2022 08:00-0500 Respiratory rate 19 /min MD Destiny Gardner Work Phone: [facility] 11-17-2022 08:00-0500 SaO2% (BldA) [Mass fraction] 93 % MD Destiny Gardner Work Phone: [facility] 11-17-2022 08:00-0500 Systolic blood pressure 151 mm[Hg] MD Destiny Gardner Work Phone: [facility] 11-17-2022 03:00-0500 Body height 185.42 cm MD Destiny Gardner Work Phone: [facility] 11-17-2022 03:00-0500 Body weight 112.6 kg MD Destiny Gardner Work Phone: [facility] 11-17-2022 02:42-0500 Diastolic blood pressure 95 mm[Hg] MD Destiny Gardner Work Phone: [facility] 11-17-2022 02:42-0500 Heart rate 65 /min MD Destiny Gardner Work Phone: [facility] 11-17-2022 02:42-0500 Respiratory rate 18 /min MD Destiny Gardner Work Phone: [facility] 11-17-2022 02:42-0500 SaO2% (BldA) [Mass fraction] 95 % MD Destiny Gardner Work Phone: [facility] 11-17-2022 02:42-0500 Systolic blood pressure 196 mm[Hg] MD Destiny Gardner Work Phone: [facility] 11-17-2022 01:50-0500 Body height 185.42 cm MD Destiny Gardner Work Phone: [facility] 11-17-2022 01:50-0500 Body weight 113.75 kg MD Destiny Gardner Work Phone: [facility] 11-17-2022 01:39-0500 Body temperature 97.4 [degF] MD Destiny Gardner Work Phone: [facility] 11-04-2022 13:15-0500 Body height 185.42 cm Destiny Gardner Work Phone: [facility] 600 DO Work Phone: 11-04-2022 13:15-0500 Body mass index (BMI) [Ratio] 32.85 kg/m2 Destiny Gardner Work Phone: [facility] 600 DO Work Phone: 11-04-2022 13:15-0500 Body surface area Derived from formula 2.36 m2 Destiny Gardner Work Phone: [facility] 600 DO Work Phone: 11-04-2022 13:15-0500 Body weight 112.95 kg Destiny Gardner Work Phone: [facility] 600 DO Work Phone: 11-04-2022 13:15-0500 Diastolic blood pressure 64 mm[Hg] Destiny Gardner Work Phone: [facility] 600 DO Work Phone: 11-04-2022 13:15-0500 Heart rate 60 /min Destiny Gardner Work Phone: [facility] 600 DO Work Phone: 11-04-2022 13:15-0500 Systolic blood pressure 138 mm[Hg] Destiny Gardner Work Phone: [facility] 600 DO Work Phone: 11-05-2021 13:12-0500 Body height 185.42 cm Destiny Gardner Work Phone: [facility] 250 DO Work Phone: 11-05-2021 13:12-0500 Body mass index (BMI) [Ratio] 32.22 kg/m2 Destiny Gardner Work Phone: [facility] 250 DO Work Phone: 11-05-2021 13:12-0500 Body surface area Derived from formula 2.34 m2 Destiny Gardner Work Phone: [facility] 250 DO Work Phone: 11-05-2021 13:12-0500 Body weight 110.77 kg Destiny Gardner Work Phone: [facility] 250 DO Work Phone: 11-05-2021 13:12-0500 Diastolic blood pressure 78 mm[Hg] Destiny Gardner Work Phone: [facility] 250 DO Work Phone: 11-05-2021 13:12-0500 Heart rate 62 /min Destiny Gardner Work Phone: [facility] 250 DO Work Phone: 11-05-2021 13:12-0500 Systolic blood pressure 136 mm[Hg] Destiny Gardner Work Phone: [facility] 250 DO Work Phone: Encounters Encounter Date Encounter Type Care Provider Facility Start: 10-03-2024 End: 10-03-2024 Patient encounter procedure Suhail Suttonos DO Work Phone: [facility] Comment on above: Preoperative testing (Primary Dx); Pain in both knees, unspecified chronicity; Primary osteoarthritis of both knees Start: 10-03-2024 End: 10-03-2024 Patient encounter status Suhail Suttonos DO Work Phone: [facility] Start: 10-03-2024 End: 10-03-2024 ambulatory CHECO POCOS Not Available Start: 10-03-2024 End: 10-03-2024 ambulatory CHECO POCOS Not Available Start: 07-15-2024 End: 07-15-2024 ambulatory [facility] Start: 07-01-2024 End: 07-01-2024 ambulatory [facility] Start: 06-26-2024 End: 06-26-2024 ambulatory MD Destiny Gardner Work Phone: [facility] Work Phone: Start: 06-26-2024 End: 06-26-2024 Patient encounter procedure MD Destiny Gardner Work Phone: [facility] Start: 03-04-2024 End: 03-04-2024 Patient encounter procedure MD Destiny Gardner Work Phone: [facility] Start: 03-04-2024 End: 03-04-2024 ambulatory MD Destiny Gardner Work Phone: [facility] Work Phone: Start: 03-01-2024 End: 03-01-2024 ambulatory CHECO POCOS Not Available Start: 02-21-2024 End: 02-21-2024 ambulatory SHYANN DEPOY Not Available Start: 02-14-2024 End: 02-14-2024 ambulatory SHYANN DEPOY Not Available Start: 02-12-2024 End: 02-12-2024 ambulatory SHYANN DEPOY Not Available Start: 02-07-2024 End: 02-07-2024 ambulatory ERWIN J THOMAS Not Available Start: 02-05-2024 End: 02-05-2024 ambulatory SHYANN DEPOY Not Available Start: 01-31-2024 End: 01-31-2024 ambulatory SHYANN DEPOY Not Available Start: 01-29-2024 End: 01-29-2024 ambulatory SHYANN DEPOY Not Available Start: 01-24-2024 End: 01-24-2024 ambulatory ERWIN J THOMAS Not Available Start: 01-22-2024 End: 01-22-2024 Patient encounter procedure MD Destiny Gardner Work Phone: [facility] Work Phone: Start: 01-19-2024 End: 01-19-2024 ambulatory CHECO POCOS Not Available Start: 11-30-2023 End: 11-30-2023 Patient encounter procedure MD Destiny Gardner Work Phone: [facility] Start: 11-30-2023 End: 11-30-2023 ambulatory MD Destiny Gardner Work Phone: [facility] Work Phone: Start: 11-16-2023 End: 11-16-2023 ambulatory Destiny Gardner Other [facility] Other Start: 11-16-2023 Patient encounter procedure Destiny Gardner [facility] Start: 11-16-2023 Telephone encounter Destiny Gardner [facility] Start: 10-06-2023 End: 10-06-2023 Office outpatient visit 25 minutes Cory Johnson MD Work Phone: [facility] Comment on above: Arteriosclerosis of coronary artery (Primary Dx); Essential hypertension; Mixed hyperlipidemia; ICD (implantable cardioverter-defibrillator), single, in situ; Ventricular fibrillation (CMS/HCC); Status post angioplasty Start: 08-14-[address] Destiny Gardner Facility:[id number] Start: 08-14-2023 End: 08-14-2023 Patient encounter procedure MD Destiny Gardner Work Phone: [facility] Start: 08-14-2023 End: 08-14-2023 ambulatory MD Destiny Gardner Work Phone: [facility] Work Phone: Start: 05-10-[address] Destiny Gardner Facility:[id number] Start: 05-10-2023 End: 05-10-2023 ambulatory MD Destiny Gardner Work Phone: [facility] Work Phone: Start: 05-10-2023 End: 05-10-2023 Patient encounter procedure MD Destiny Gardner Work Phone: [facility] Start: 01-13-2023 Office outpatient vi sit 25 minutes Destiny Gardner Work Phone: [facility] 250 DO Work Phone: Start: 01-13-[address] Cory Johnson II Facility: Start: 12-19-2022 End: 12-19-2022 ambulatory MD Destniy Gardner Work Phone: [facility] Work Phone: Start: 12-19-2022 End: 12-19-2022 Patient encounter procedure MD Destiny Gardner Work Phone: [facility] Start: 11-17-[address] Destiny Gardner Facility:[id number] Start: 11-17-2022 End: 11-17-2022 Evaluation and management of inpatient MD Destiny Gardner Work Phone: [facility] Work Phone: Start: 11-17-2022 End: 11-17-2022 observation encounter MD Destiny Gardner Work Phone: [facility] Work Phone: Start: 11-10-2022 Adult health examination Miri Gardner Other [facility] Other Start: 11-10-2022 End: 11-11-[address] DESTINY GARDNER Facility:H1 Start: 11-04-2022 Office outpatient vi sit 25 minutes Destiny Gardner Work Phone: [facility] 600 DO Work Phone: Start: 11-04-[address] Destiny Gardner Facility: Start: 09-14-2022 End: 09-14-2022 ambulatory MD Destiny Gardner Work Phone: [facility] Work Phone: Start: 09-14-2022 End: 09-14-2022 Patient encounter procedure MD Destiny Gardner Work Phone: [facility] Start: 07-26-2022 Rx Renewal Destiny Gardner Work Phone: [facility] 250 DO Work Phone: Start: 05-02-2022 Rx Renewal Destiny Gardner Work Phone: [facility] 250 DO Work Phone: Start: 03-30-2022 End: 03-30-2022 Patient encounter procedure MD Destiny Gardner Work Phone: [facility] Start: 11-17-2021 Rx Renewal Destiny Gardner Work Phone: [facility] 250 DO Work Phone: Start: 11-16-2021 Rx Renewal Destiny Jose Toni Work Phone: [facility] 250 DO Work Phone: Start: 11-05-2021 FUV, Provider: Cory Johnson, Status: Pen, Time: 1:00 PM Destiny Gardner Work Phone: [facility] 250 DO Work Phone: Start: 11-05-2021 Office outpatient vi sit 25 minutes Destiny Gardner Work Phone: [facility] 250 DO Work Phone: Start: 11-02-2021 Rx Renewal Destiny Gardner Work Phone: [facility] 250 DO Work Phone: Procedures Date Procedure Procedure Detail Performing Clinician Start: 10-03-2024 Radiologic examinati on knee 3 views Suhail Schofield DO Work Phone: Start: 11-17-2022 Plain chest X-ray MD Danya Gardner Work Phone: Start: 11-10-[address] DESTINY GARDNER Comment on above: Performed By: #### P [facility] #### [facility] [address] [place] [address] Dr. Shadia Cardozo Start: 11-07-2017 Screening for malign ant neoplasm of prostate Destiny Gardner Other Start: 08-29-2013 General examination of patient Destiny Gardner Other Colonoscopy Destiny Gardner Work Phone: Hernia repair Destiny Gardner Work Phone: Percutaneous translu cat coronary angioplasty Destiny Gardner Work Phone: Screening for malign ant neoplasm of prostate Destiny Gardner Other Plan of Treatment Date Care Activity Detail Author Start: 01-21-2033 DTaP/Tdap/Td Vaccine s (2 - Td or Tdap) DTaP/Tdap/Td Vaccines (2 - Td or Tdap) [facility] Start: 11-06-2024 End: 10-03-2025 Urinalysis complete panel - Urine Urinalysis with reflex microscopic Lab Routine Preoperative testing Expected: 11/06/2024 (Approximate), Expires: 10/03/2025 [facility] Work Phone: Comment on above: Expected: 11/06/2024 (Approximate), Expires: 10/03/2025 Start: 07-21-2024 Influenza vaccination Influenza Vacc ine (#1) [facility] Start: 06-28-2024 End: 06-28-2024 Patient encounter procedure 06/28/2024 1:10 PM EDT Office Visit [facility] [address] [address] Cory Johnson MD 703 [facility] 2, [address] [address] [facility] Start: 11-13-2023 COVID-19 Vaccine (5 - Moderna series) COVID-19 Vaccine (5 - Moderna series) [facility] Start: 11-11-2023 Medicare Annual Wellness Visit Medicare Annual Wellness Visit (AWV) [facility] Start: 10-06-2023 FUV, Provider: Cory Johnson, Status: Pen, Time: 1:50 PM FUV, Provider: Cory Johnson, Status: Pen, Time: 1:50 PM [facility] 250 DO Work Phone: Start: 01-13-2023 FUV, Provider: Cory Johnson, Status: Pen, Time: 3:30 PM FUV, Provider: Cory Johnson, Status: Pen, Time: 3:30 PM -[facility] 600 DO Work Phone: Start: 12-26-2022 ECHO, Provider: ALEXIS HHVI ULTRASOUND 01,[id number], Status: Pen, Time: 1:30 PM ECHO, Provider: ALEXIS [facility]VI ULTRASOUND 01,[id number], Status: Pen, Time: 1:30 PM -[facility] 600 DO Work Phone: Start: 11-18-2022 Creatine kinase [Enzymatic activity/volume] in Serum or Plasma [facility] Start: 11-18-2022 Troponin I.cardiac [Mass/volume] in Serum or Plasma by High sensitivity method [facility] Start: 11-18-2022 [facility] Start: 11-17-2022 [facility] Start: 11-17-2022 [facility] Start: 11-17-2022 [facility] Start: 11-17-2022 Referral to cardiac cath tech [facility] Start: 11-17-2022 End: 11-17-2022 [facility] Start: 11-17-2022 Hospital admission [facility] Start: 11-17-2022 Plain chest X-ray XR chest 2V* [facility] Start: 11-17-2022 XR Chest 2 Views [facility] Start: 11-04-2022 FUV, Provider: Cory Johnson, Status: Pen, Time: 1:10 PM FUV, Provider: Cory Johnson, Status: Pen, Time: 1:10 PM -[facility] 250 DO Work Phone: Start: 2013 Abdominal aortic aneurysm screening Abdominal Aortic Aneurysm (AAA) Screening [facility] Start: 1966 Diabetes mellitus screening Diabetes Screening [facility] Start: 1966 Hepatitis C screening Hepatitis C [facility] Start: 1948 Lipid panel Lipid Panel [facility] Start: 1948 Screening for malign ant neoplasm of colon [facility] Patient referral [facility] Work Phone: XR Chest 2 Views [facility] XR Knee - left 3 Views XR knee 3 views left Imaging Routine Pain in both knees, unspecified chronicity 10/03/2024 7:52 AM EST [facility] XR Knee - right 3 Views XR knee 3 views right Imaging Routine Pain in both knees, unspecified chronicity 10/03/2024 7:52 AM EST [facility] Immunizations Immunization Date Immunization Notes Care Provider Milagros casiano 09-18-2023 influenza virus vaccine, unspecified formulation Suhail Schofield DO Work Phone: [facility] 10-04-2022 influenza, injectabl e, quadrivalent, preservative free Cory Johnson MD Work Phone: [facility] Work Phone: 10-04-2022 influenza, seasonal, injectable Destiny Gardner Work Phone: [facility] 600 DO Work Phone: Comment on above: Series: 09-14-2022 Fluzone High-Dose Quadrivalent 0.7 ML Intramuscular Suspension Prefilled Syringe Destiny Gardner Work Phone: [facility] 600 DO Work Phone: 09-06-2022 Moderna COVID-19 Biv al Booster 50 MCG/0.5ML Intramuscular Suspension Destiny E Gardner Work Phone: [facility] 600 DO Work Phone: 02-23-2022 Moderna COVID-19 Vaccine 100 MCG/0.5ML Intramuscular Suspension Destiny E Gardner Work Phone: [facility] 600 DO Work Phone: 09-24-2021 Moderna COVID-19 Vaccine 100 MCG/0.5ML Intramuscular Suspension Destiny Gardner Work Phone: [facility] 250 DO Work Phone: 09-14-2021 Fluzone High-Dose Quadrivalent 0.7 ML Intramuscular Suspension Prefilled Syringe Destiny Gardner Work Phone: [facility] 250 DO Work Phone: 02-11-2021 Moderna COVID-19 Vaccine 100 MCG/0.5ML Intramuscular Suspension Destiny Gardner Work Phone: [place] [address] DO Work Phone: 01-14-2021 Moderna COVID-19 Vaccine 100 MCG/0.5ML Intramuscular Suspension Destiny Gardner Work Phone: [place] [address] DO Work Phone: 11-09-2020 influenza virus vaccine, split virus (incl. purified surface antigen) Destiny Gardner Other [facility] Other 11-09-2020 influenza virus vaccine, unspecified formulation MD Destiny Gardner Work Phone: [facility] 08-20-2019 influenza, high dose seasonal, preservative-free Destiny Gardner Work Phone: [place] [address] DO Work Phone: 09-26-2017 influenza virus vaccine, split virus (incl. purified surface antigen) Destiny Gardner Other [facility] Other 09-26-2017 influenza virus vaccine, unspecified formulation MD Destiny Gardner Work Phone: [facility] 09-20-2017 influenza, injectabl e, quadrivalent, preservative free Destiny Gardner Work Phone: [place] [address] DO Work Phone: 12-21-2014 pneumococcal polysaccharide vaccine, 23 valent Destiny Gardner Work Phone: [facility] 250 DO Work Phone: 11-19-2014 pneumococcal polysaccharide vaccine, 23 valent Destiny Gardner Work Phone: [facility] 250 DO Work Phone: 08-29-2013 tetanus and diphther ia toxoids, adsorbed, preservative free, for adult use (5 Lf of tetanus toxoid and 2 Lf of diphtheria toxoid) Destiny Toni Other [facility] Payers Date Payer Category Payer Self-pay [id number] 2022 Private Health Insurance [employer] Me espinoza [id number] 2022 Unknown 2013 Medicare [id number] 1959 Medicare [id number] 1959 Unknown [id number] 1948 Unknown [id number] 2.16.840.1.746145.3.579.2 .593 1948 Unknown [id number] 2.16.840.1.656345.3.579.2 .356 1948 Unknown [id number] 2.16.840.1.198431.3.579.2 .356 1948 Unknown [id number] 2.16.840.1.106870.3.579.2 .356 1948 Unknown [id number] 2.16.840.1.970029.3.579.2 .356 1948 Unknown [id number] 2.16.840.1.398172.3.579.2 .356 1948 Unknown [id number] 2.16.840.1.911213.3.579.2 .356 1948 Unknown [id number] 2.16.840.1.196374.3.579.2 .356 1948 Unknown [id number] 2.16.840.1.735507.3.579.2 .1246 1948 Unknown [id number] 2.16.840.1.727929.3.579.2 .1259 1948 Unknown [id number] 2.16.840.1.409882.3.579.2 .125 1948 Unknown [id number] 2.16.840.1.520879.3.579.2 .1259 1948 Unknown [id number] 2.16.840.1.509276.3.579.2 .1259 1948 Unknown [id number] 2.16.840.1.511934.3.579.2 .1259 1948 Unknown [id number] 2.16.840.1.627413.3.579.2 .1259 1948 Unknown [id number] 2.16.840.1.293862.3.579.2 .1259 1948 Unknown [id number] 2.16.840.1.175829.3.579.2 .1259 1948 Unknown [id number] 2.16.840.1.884656.3.579.2 .1259 1948 Unknown [id number] 2.16.840.1.798444.3.579.2 .1259 1948 Unknown [id number] 2.16.840.1.628722.3.579.2 .1259 1948 Unknown [id number] 2.16.840.1.956230.3.579.2 .9 1948 Unknown [id number] 2.16.840.1.577516.3.579.2 .1259 1948 Unknown [id number] 2.16.840.1.236872.3.579.2 .1259 1948 Unknown [id number] 2.16.840.1.808529.3.579.2 .1259 1948 Unknown [id number] 2.16.840.1.069968.3.579.2 .1244 Unknown [id number] 2.16.840.1.855269.3.579.2 .531 Unknown [id number] 2.16.840.1.085806.3.579.2 .531 Unknown [id number] 2.16.840.1.386470.3.579.2 .531 Unknown [id number] 2.16.840.1.879132.3.579.2 .531 Social History Date Type Detail Facility Start: 10-06-2023 End: 10-03-2024 No illicit drug use No illicit drug use [place] [address] DO Work Phone: Comment on above: Occasionally; 2-3 cups of coffee d aily; Start: 1950 Sex Assigned At Male F [facility] Start: 11-17-2022 End: 11-17-2022 Tobacco smoking status NHIS Never smoked tobacco (finding) [facility] Start: 05-04-2023 End: 10-06-2023 Tobacco smoking status NHIS Ex-smoker [facility] Start: 11-20-1962 End: 11-20-1985 History of tobacco use Current smoker [facility] Work Phone: Start: 11-20-1962 End: 11-20-1985 History of tobacco use Cigarette Smoker [facility] Work Phone: Start: 10-06-2023 Tobacco use and exposure Smokeless tobacco non-user [facility] Work Phone: Start: 10-06-2023 End: 10-03-2024 Alcohol intake Current drinker of alcohol (finding) [facility] Work Phone: Start: 10-06-2023 End: 10-03-2024 Tobacco use panel [facility] Work Phone: Start: 10-06-2023 Alcohol Comment ocassionally [facility] Work Phone: Start: 1950 Sex Assigned At Not on file [facility] Work Phone: Start: 09-26-2023 End: 10-06-2023 Exposure to SARS-CoV-2 (event) Not sure [facility] Start: 05-04-2023 Alcohol Comment I occasionally drink [facility] Goals Date Patient Goal Desired Activity /State Functional Status Date Assessment Result Facility 11-17-2022 Functional status Patient at Baseline [facility] Work Phone: Mental Status Date Assessment Result Facility 11-17-2022 Cognitive function Cognitive Sta tus Patient at Baseline [facility] Work Phone: Clinical Notes 11-17-2022 to 10-03-2024 Summer Warren - 10/03/2024 9:45 AM EST Note Date & Type Note Facility 10-03-2024 History of Presen t illness Narrative Images from the original note were not included. Suhail Padgett is a 73 y.o. male presents with chief complaint of bilateral knee osteoarthritis, status post Synvisc One. HPI: Suhail returns here today with right greater than left left knee pain. He questions next steps and is really here for full delineation of options. He is questioning surgical intervention. He denies any new or interval symptoms. The pain is effecting his quality of life and again he has had extensive conservative care. SUBJECTIVE: MEDICATIONS: Current Outpatient Medications Medication Instructions aspirin 81 mg, Daily RT citalopram (CeleXA) 20 MG tablet Every 24 hours cyanocobalamin (VITAMIN B-12) 100 mcg, Daily digoxin (Lanoxin) 125 MCG tablet docusate sodium (COLACE) 50 mg, 2 times daily donepezil (ARICEPT) 10 mg, Nightly finasteride (PROSCAR) 5 mg, Daily RT Glucosamine Sulfate 500 MG tablet Daily ibuprofen 600 MG tablet TAKE 1 TABLET BY MOUTH 4 TIMES DAILY FOR 5 DAYS lisinopril 5 mg, Daily magnesium oxide (MAG-OX) 400 mg, Daily RT metoprolol tartrate (Lopressor) 50 MG tablet Take by mouth. Misc Natural Products (OSTEO BI-FLEX JOINT SHIELD PO) Take by mouth. MULTIPLE VITAMINS PO Multiple Vitamins nitroglycerin (NITROSTAT) 0.4 mg, Every 5 min PRN omega-3 (fish oil) 1000 MG capsule Oral Ozempic, 0.25 or 0.5 MG/DOSE, 2 MG/3ML solution pen-injector simvastatin (ZOCOR) 40 mg, Nightly vitamin C 100 mg, Daily ALLERGIES: No Known Allergies SURGICAL HISTORY: Past Surgical History: Procedure Laterality Date BACK SURGERY CARDIAC DEFIBRILLATOR PLACEMENT CAROTID ARTERY ANGIOPLASTY CORONARY ANGIOPLASTY WITH STENT PLACEMENT ROTATOR CUFF REPAIR VARICOSE VEIN SURGERY FAMILY HISTORY: Family History Problem Relation Name Age of Onset Cancer Mother Gianna Stroke Father SOCIAL HISTORY: Social History Tobacco Use Smoking status: Former Current packs/day: 0.00 Average packs/day: 0.5 packs/day for 19.7 years (9.9 ttl pk-yrs) Types: Cigarettes Start date: 11/20/1962 Quit date: 08/13/1982 Years since quittin.1 Vaping Use Vaping status: Never Used Substance Use Topics Alcohol use: Yes Comment: I occasionally drink Drug use: Never Depression: Not on file REVIEW OF SYMPTOMS: The review of systems, history and current medications list are all reviewed today. OBJECTIVE: Visit Vitals Ht 6' Wt 210 lb BMI 28.48 kg/m Smoking Status Former BSA 2.2 m Physical Exam His orthopedic exam here today reveals a fixed valgus on the right side with tenderness mainly lateral, but to a lesser extent and certainly medial as well. His knee is fully stable. His varus and valgus stress testing is stable. The calf and thigh are supple. His neurocirculatory status is intact. Examination of the left knee reveals arc of motion without difficulty. No real deformity on this side and this knee is stable in addition. Examination of the x-rays AP bilateral weight bearing, bilateral sunrise and bilateral laterals total of six views with permanent images are saved to the record of the knees does show severe end stage osteoarthritis with valgus deformity, bone on bone change lateral compartment on the right. This is tricompartmental overall. No evidence of fracture. He has more moderate change on the left and this is more medial overall. ASSESSMENT AND PLAN: Assessment/Plan Bilateral knee osteoarthritis, right greater than left. The findings are discussed. He feels he is at a point now on the right side that he would like to move forward with total knee arthroplasty and is here for a full discussion of that. This does appear to be clinically indicated and cost effective. He does wish to do this in the November time frame after the holidays. We did identify a tentative date and will plan accordingly. We did discuss the expectations with regard to recovery, the outpatient setting, the [facility] program. All of his questions are otherwise answered at length here today. Supportive care will be used in the meantime. We will obtain comment from his cardiac cath tech regarding options moving forward and clearance. He does voice understanding of this. All questions are otherwise answered. Cosigned by Suhail Schofield DO at 10/09/2024 8:00 AM EST documented in this encounter [facility] 11-16-2023 Evaluation note Encounter Date Diagnosis Assessment [...] by provider signed below. Oct, CAD in [place] artery (ICD-10 - I25.10) as above Oct, [...] E78.5) DYSLIPIDEMIA Chronic problem; due for labs. [employer] Other 11-17-2023 History of Present illness Narrative* [...] week., Disp: , Rfl: fish oil concentrate (Struthers-3) 120-180 mg capsule, Take 1 capsule (1 [...] daily., Disp: , Rfl: multivitamin with minerals (jkypzhvyzyhv-ygcu-suldb acid) tablet, Take 1 tablet by mouth [...] elimination of anginal symptomatology [facility] Work Phone: 1(420) 418-931611-17-2023 Instructions* Patient Instructions* Lorelei Gibbs LPN - [...] follow up per routine [facility] Work Phone: 1(671) 723-383412-29-2022 Progress note Author Jhony Almonte [facility] November 17, 2022 5:11pm Note Date/Time November 17, 2022 11:35am [facility] [address] [place] [address] Hospitalist Progress Note Signed Patient: Suhail Padgett MR#: [id number] : 1950 Acct:[id number] Age/Sex: 72 / M Adm Date: 2 Loc: Room: [address] [place] [address] Type: DIS INOo Attending Dr: Jhony Almonte [...] 11/17/22 08:59 Digoxin 125 Mcg Tablet PO 12/29/23 08:59 125 mcg DAILY GIANCARLO Administration Enoxaparin [...] signed by DO DONIS Conrad> 11/17/22 1310 [facility] Work Phone: 1(306) 446-921712-29-2022 History and physical note Author Eber Kuhn [facility] November 17, 2022 5:10am Note Date/Time November 17, 2022 3:07am [facility] [address] [place] [address] Hospitalist H&P Signed Patient: Suhail Padgett MR#: [id number] : 1950 Acct:[id number] Age/Sex: 72 / M Adm Date: 2 Loc: Room: [address] [place] [address] Type: ADM IN Attending Dr: Eber Kuhn [...] pain. He was subsequently admitted [facility] floor for observation and further treatment. Patient [...] History (Updated 11/17/22 @ 03:09 by Shayna Rodriguez, RN) Depression High cholesterol Hx of cardiac arrest 2013 Hypertension Pacemaker Skin cancer Surgical History (Updated 11/17/22 @ 03:09 by Shayan Rodriguez, SIS) History of carotid endarterectomy History of cholecystectomy [...] % (Auto) 14.2 % (.) 11/17/22 01:41 [place] % (Auto) 9.4 % (.) 11/17/22 01:41 Eos % (Auto) 3.2 % (.) 11/17/22 01:41 Baso % (Auto) 0.3 % (.) 11/17/22 01:41 Nucleat RBC Rel Count 0.3 /100 WBC (0-0.5) 11/17/22 01:41 Neut # (Auto) 10.6 x10E3/uL (1.8-7.7) H 11/17/22 01:41 Lymph # (Auto) 2.1 x10E3/uL (1.00-4.8) 11/17/22 01:41 [place] # (Auto) 1.4 x10E3/uL (0.0-0.8) H 11/17/22 [...] signed by Eber Kuhn DO> 11/17/22 0510 [facility] Work Phone: Consult note Author Scott Foy [facility] November 17, 2022 12:30pm Note Date/Time November 17, 2022 12:28pm [facility] [address] [place] [address] Cardiology Consult Note Signed Patient: Suhail Padgett MR#: [id number] : 1950 Acct:[id number] Age/Sex: 72 / M Adm Date: 2 Loc: Room: [address] [place] [address] Type: ADM INOo Attending Dr: Jhony Almonte [...] x10E3/uL Lymph # (Auto) 2.1 (1.00-4.8) x10E3/uL [place] # (Auto) 1.4 H (0.0-0.8) x10E3/uL Eos [...] nonspecific abnormality, ST segment, and/or T wave MA, pacemaker, normal Pacemaker: ventricular pacing w/capture (except [...] signed by Scott Foy MD> 11/17/22 1230 [facility] Work Phone: Discharge summary Author Jhony Almonte [facility] November 17, 2022 5:14pm Note Date/Time November 17, 2022 12:52pm [facility] [address] [place] [address] Discharge Summary Signed Patient: Suhail Padgett MR#: [id number] : 1950 Acct:[id number] Age/Sex: 72 / M Adm Date: 2 Loc: Room: [address] [place] [address]: Jhony Almonte DO Copies to: Randi Conrad DO, DO Destiny Quiñones MD~ Providers Date of Discharge: 11/17/22 Discharging [...] % (Auto) 72.9, Lymph % (Auto) 14.2, [place] % (Auto) 9.4, Eos % (Auto) 3.2, Baso % (Auto) 0.3, Nucleat RBC Rel Count 0.3, Neut # (Auto) 10.6 H, Lymph # (Auto) 2.1, [place] # (Auto) 1.4 H, Eos # (Auto) [...] days. ) Documented By: Jhony Almonte DO [id number] Signed By: <Electronically signed by Jhony lAmonte DO> 11/17/22 1714 <Electronically signed by DO DONIS Conrad> 11/17/22 1311 [facility] Work Phone: Evaluation noteNo assessment information available [facility] Work Phone: Evaluation note* Diagnosis Onset Date Resolution Status Chest pain acute [facility] Work Phone: Evaluation note* Diagnosis Onset Date Resolution Status Chest pain acute Hypertension acute [facility] Work Phone: Evaluation note* Diagnosis Arteriosclerosis of coronary artery- Primary Essential hypertension Unspecified essential hypertension Mixed hyperlipidemia ICD (implantable cardioverter-defibrillator), single, in situ Ventricular fibrillation (CMS/HCC) Ventricular fibrillation Status post angioplasty Postsurgical percutaneous transluminal coronary angioplasty status documented in this encounter [facility] Work Phone: Evaluation noteNo InformationNort [employer] Other Evaluation note* Diagnosis Onset Date Resolution Status CAD in [place] artery acute Dyspnea on exertion acute [facility] Work Phone: Evaluation note* Diagnosis Preoperative testing- Primary Unspecified pre-operative examination Pain in both knees, unspecified chronicity Primary osteoarthritis of both knees documented [facility] this [facility] Author Eber Kuhn [facility] November 17, 2022 5:10am Note Date/Time November 17, 2022 3:07am [facility] [address] [place] [address] Hospitalist H&P Signed Patient: Suhail Padgett MR#: [id number] : 1950 Acct:[id number] Age/Sex: 72 / M Adm Date: 2 Loc: Room: [address] [place] [address] Type: ADM IN Attending Dr: Eber Kuhn [...] pain. He was subsequently admitted to the [facility] floor for observation and further treatment. Patient [...] History (Updated 11/17/22 @ 03:09 by Shayna Rodriguez, SIS) Depression High cholesterol Hx of cardiac arrest [...] % (Auto) 14.2 % (.) 11/17/22 01:41 [place] % (Auto) 9.4 % (.) 11/17/22 01:41 Eos % (Auto) 3.2 % (.) 11/17/22 01:41 Baso % (Auto) 0.3 % (.) 11/17/22 01:41 Nucleat RBC Rel Count 0.3 /100 WBC (0-0.5) 11/17/22 01:41 Neut # (Auto) 10.6 x10E3/uL (1.8-7.7) H 11/17/22 01:41 Lymph # (Auto) 2.1 x10E3/uL (1.00-4.8) 11/17/22 01:41 [place] # (Auto) 1.4 x10E3/uL (0.0-0.8) H 11/17/22 [...] signed by Eber Kuhn DO> 11/17/22 0510 [facility] Work Phone: History general Narrative - Reported* Type Description Date Medical History HTN Medical History Hyperlipidemia Surgical History defibrillator placement Surgical History gallbladder Surgical History Vein stripping [employer] Other History of Present illness NarrativePatient returns [...] lifestyle modification exercise and [facility] [address] Work Phone: History of Present illness NarrativePatient [...] lifestyle modification exercise and weight loss are reviewed.[facility] DO Work Phone: History of Present [...] symptoms arise or worsen in the interim. [place] [address] DO Work Phone: History of Present illness [...] arise or worsen in the interim. [facility] Work Phone: History of Present [...] arise or worsen in the interim. [facility] Work Phone: History of Present [...] the merits of diet exercise and weight loss.[place] [address] DO Work Phone: Progress note Author Jhony Almonte [facility] November 17, 2022 5:11pm Note Date/Time November 17, 2022 11:35am [facility] [address] [place] [address] Hospitalist Progress Note Signed Patient: Suhail Padgett MR#: [id number] : 1950 Acct:[id number] Age/Sex: 72 / M Adm Date: 2 Loc: Room: [address] [place] [address] Type: DIS INOo Attending Dr: Jhony Almonte [...] 20 Mg Tablet PO 11/17/23 21:59 QHS [facility] Citalopram Hydrobromide 20 mg 11/17/22 09:00 11/17/22 [...] 5 Mg Tablet PO 11/18/23 08:59 [id number] [facility] Hydrochlorothiazide 25 mg 11/17/22 09:00 11/17/22 08:59 [...] signed by DO DONIS Conrad> 11/17/22 [facility]10 [facility] Work Phone: Reason for referral (narrative)* Consultation (Routine) - Authorized Specialty Diagnoses / Procedures Referred By Dylan james Referred To Contact Cardiology Diagnoses Arteriosclerosis of coronary artery Essential hypertension ICD (implantable cardioverter-defibrillator), single, in situ Ventricular fibrillation (CMS/HCC) Procedures Follow Up In Cardiology Cory Johnson MD [address] [facility] [address], [address] [address] Cory Johnson MD [facility] [facility] [address], [address] [address] Referral ID Status Reason Start Date Expiration Date V isits Requested Visits Authorized [id number] Authorized 10/06/2023 10/05/2024 1 1 [facility] Work Phone: Summary Purpose Family History Unknown Family Member Name Dates Details Family [...] arterioscl erotic cardiovascular disease: Father(V17.49, Z82.49) Status:Active Relationship Condition Age at Onset Recorded Date/T kathy father History of stroke Unknown Unknown Not Specified Malignant neoplasm Unknown Relationship Condition Age at Onset Recorded Date/T kathy father History of stroke Unknown Unknown mother Malignant neoplasm Unknown Advance Directives Advance Directive Response Recorded Date/ Time Advance [...] [place] Reason for Visit Chest pain Hypertension Chief Complaint increasing SOB [place] Reason for Visit CAD in [place] artery Dyspnea on exertion Additional Source Comments (unrecognized sect ion and content) No Status Records FoundNo Status Records FoundNo Status Records FoundNo Status Records FoundNo Status Records FoundNo Status Records FoundNo Status Records FoundNo Status Records FoundNo Status Records Found INFORMATION SOURCE (unrecogn ized section and content) DATE CREATED AUTHOR 06/12/2020 [facility] DATE CREATED AUTHOR AUTHOR'S ORGANIZ ATION 03/05/2021 [facility] DATE CREATED AUTHOR AUTHOR'S ORGANIZ ATION 11/17/2022 [facility] DATE CREATED AUTHOR AUTHOR'S ORGANIZ ATION 01/14/2023 [employer] DATE CREATED AUTHOR AUTHOR'S ORGANIZ ATION 08/24/2023 [facility] DATE CREATED AUTHOR AUTHOR'S ORGANIZ ATION 07/11/2024 [facility] DATE CREATED AUTHOR AUTHOR'S ORGANIZ ATION 07/18/2024 [facility] DATE CREATED AUTHOR AUTHOR'S ORGANIZ ATION 10/08/2024 [facility] EPIC DATE CREATED AUTHOR AUTHOR'S CARROLL ATION 10/09/2024 [facility] Manager Of International Teams (unrecognized sec tion and content) Team [...] Active Anshu Lee MD Other Provider Active Landon Mclean APRN Other Provider Active Luz Marina Pfeiffer MD Other Provider Active Vladimir Steen MD Other Provider Active Erin Schneider MD Other Provider Active Yamila Arias [facility]- Other Provider Active Joleen Syed MD Other Provider Active [employer] Relationship Specialty Start Date End Date Destiny Gardner MD [address] [place] [address] PCP - General 06/12/19 Team Status: Inactive Member Role Status Dates Destiny Gardner MD Primary Care Provide r, Attending Provider Active Start: January 22, 2024 End: January 22, 2024 Team Status: Inactive Member Role Status Dates Destiny Gardner MD Primary Care Provider Active Start: March 04, 2024 End: March 04, 2024 Cory Johnson MD Attending Provider Active Start: March 04, 2024 End: March 04, 2024 Team Status: Inactive Member Role Status Dates Destiny Gardner MD Primary Care Provider Active Start: June 26, 2024 End: June 26, 2024 Cory Johnson MD Attending Provider Active Start: June 26, 2024 End: June 26, 2024 [employer] Relationship Specialty [place] [address] [place] [address] [place] [address] PCP - General Family Medicine 04/28/23 Goals (unrecognized section and content) Goals may be documented in a n alternate sectionGoals may be documented in an alternate sectionGoals may be documented in an alternate sectionGoals may be documented in an alternate sectionGoals may be documented in an alternate sectionNo InformationNo InformationGoals may be documented in an alternate sectionGoals may be documented in an alternate sectionGoals may be documented in an alternate section Reason for Visit (unrecogniz ed section and content) Reason Comments Follow-up 9m Reason Comments Pain FOR RECORDS PERTAINING TO PATIENTS WHO ARE [...] BE BASED ON THE PRIMARY CLINICAL RECORDS. [employer] provides no warranty or guarantee of the accuracy or completeness of information in this document.
[2024-10-24 12:30] LABS: Basophils Absolute Auto 0.1 10^3/uL (0.0-0.1); Basophils Percent Auto 1.9 % (0.2-2.0); Eosinophils Absolute Auto 0.2 10^3/uL (0.0-0.7); Eosinophils Percent Auto 2.5 % (0.9-7.0); Hematocrit 42.3 % (42.0-54.0); Hemoglobin 13.9 g/dL (14.0-18.0); Immature Granulocytes Abs Auto 0.01 10^3/uL (0.00-0.03); Immature Granulocytes Pct Auto 0.1 % (0.0-0.5); Lymphocytes Absolute Auto 1.4 10^3/uL (1.2-3.8); Lymphocytes Percent Auto 19.1 % (20.5-60.0); Mean Corpuscular HGB Conc 32.9 g/dL (29.9-35.2); Mean Corpuscular Hemoglobin 31.7 pg (25.9-34.0); Mean Corpuscular Volume 96.6 fL (80.0-94.0); Mean Platelet Volume 10.6 fL (9.5-13.5); Monocytes Absolute Auto 0.7 10^3/uL (0.3-0.8); Monocytes Percent Auto 9.8 % (1.7-12.0); Neutrophils Absolute Auto 4.8 10^3/uL (1.4-6.5); Neutrophils Percent Auto 66.6 % (43.0-75.0); Platelet Count 280 10^3/uL (150-450); Red Blood Count 4.38 10^6/uL (4.70-6.10); Red Cell Distribution Width 13.8 % (11.0-15.0); White Blood Count 7.3 10^3/uL (4.0-11.0)
[2024-10-24 13:29] LABS: Alanine Aminotransferase 28 U/L (16-63); Albumin Globulin Ratio 0.9; Albumin Level 3.3 g/dL (3.4-5.0); Alkaline Phosphatase 87 U/L (46-116); Anion Gap 9.2; Aspartate Amino Transferase 26 U/L (15-37); BUN Creatinine Ratio 12.5; Bilirubin Total 0.6 mg/dL (0.2-1.0); Calcium 8.8 mg/dL (8.5-10.1); Carbon Dioxide 31.6 mmol/L (21.0-32.0); Chloride 110 mmol/L (98-107); Chol HDL Ratio 2.7; Cholesterol 125 mg/dL (<=200); Estimated GFR (African America >60 (>=60 mL/min/1.73m^2); Estimated GFR (Non-African Ame 55 (>=60 mL/min/1.73m^2); Globulin 3.6 g/dL; Glucose 90 mg/dL (74-106); HDL Cholesterol 47 mg/dL (40-60); LDL Cholesterol Calculated 66.4 mg/dL; Potassium 4.8 mmol/L (3.5-5.1); Sodium 146 mmol/L (136-145); Total Protein 6.9 g/dL (6.4-8.2); Triglycerides 58 mg/dL (<=150); VLDL CHOLESTEROL 11.6 mg/dL
[2024-10-24 13:56] LABS: Prostate Specific Antigen Scrn 0.83 ng/mL (<=4.00)
[2024-10-25 11:11] LABS: Vitamin B12 1261 pg/mL (232-1245)
== END 2024-10-24 12:09 | disposition home or self-care (01) ==
LOC: LAB 12:09
PROVIDERS: PCP Family Medicine; Visit Provider Family Medicine
DX: Z00.00 Encounter for general adult medical examination without abnormal findings (principal); D50.9 Iron deficiency anemia, unspecified; E78.5 Hyperlipidemia, unspecified; I10 Essential (primary) hypertension; I25.10 Atherosclerotic heart disease of native coronary artery without angina pectoris; D64.9 Anemia, unspecified; Z12.5 Encounter for screening for malignant neoplasm of prostate
CPT/HCPCS: 36415; 80053; 80061; 82607; 82746; 85025; G0103